=== PATIENT | male | born 1940 | race Caucasian/White ===

== ENCOUNTER 2020-03-29 11:05 | Outpatient (REF) | payer MEDICARE, SELFPAY ==
[2020-03-29 11:57] LABS: MANUAL DIFF FLAG NO
[2020-03-29 12:19] LABS: Basophils Absolute Auto 0.1 X10*3/uL (0.0-0.2); Basophils Percent Auto 0.7 % (0-2); Eosinophils Absolute Auto 0.1 X10*3/uL (0.0-0.4); Eosinophils Percent Auto 1.7 % (0-4); Hematocrit 42.5 % (42-52); Hemoglobin 13.8 g/dl (14.0-18.0); Imm Gran Abs Auto 0.03 X10*3/uL (0.00-0.03); Imm Gran Pct Auto 0.4 % (0.0-0.4); Lymphocytes Absolute Auto 2.1 X10*3/uL (1.2-4.9); Lymphocytes Percent Auto 28.4 % (20-40); Mean Corpuscular HGB Conc 32.5 g/dl (31.0-36.0); Mean Corpuscular Hemoglobin 29.6 pg (27.0-33.0); Mean Platelet Volume 10.7 fL (9.4-12.4); Monocytes Absolute Auto 0.8 X10*3/uL (0.1-1.2); Monocytes Percent Auto 10.8 % (2-11); Neutrophils Absolute Auto 4.2 X10*3/uL (2.0-8.3); Platelet Count 200 X10*3/uL (160-400); Red Blood Count 4.67 X10*6/uL (4.60-5.80); Red Cell Distribution Width 13.8 % (11.0-16.0); White Blood Count 7.3 X10*3/uL (4.8-10.8)
[2020-03-29 12:23] LABS: Glucose Urine UA NEG (NEG); Leukocyte Esterase Urine NEG (NEG); Nitrite Urine NEG (NEG); Urine Blood NEG (NEG); Urine Ketones NEG (NEG); Urine Protein NEG (NEG-TRACE)
[2020-03-29 12:27] LABS: Alanine Aminotransferase 18 U/L (0-40); Albumin Level 4.1 g/dL (3.5-5.0); Alkaline Phosphatase 43 U/L (39-117); Anion Gap 15 (12-20); Aspartate Amino Transferase 19 U/L (5-37); Bilirubin Total 0.6 mg/dL (0.0-1.0); Blood Urea Nitrogen 15 mg/dL (9-16); Calcium 9.1 mg/dL (8.4-10.2); Carbon Dioxide 25 mmol/L (22-29); Chloride 102 mmol/L (96-108); Cholesterol 130 mg/dL; Estimated Glomerular Filt Rate 57; Glucose Fasting 116 mg/dL (60-99); HDL Cholesterol 43 mg/dL; LDL Cholesterol Calculated 59 mg/dl; Sodium 137 mmol/L (135-145); Total Protein 7.1 g/dL (6.5-8.0); Triglycerides 141 mg/dL
[2020-03-29 12:34] LABS: Appearance Urine CLEAR; Color Urine YELLOW
[2020-03-29 13:01] LABS: Creatinine Urine 147.26 mg/dL; Microalbum/Creatinine Ratio Ur 21.7 ug/mg cr
[2020-03-29 13:03] LABS: Estimated Average Glucose 137 mg/dL; Hemoglobin A1c % 6.4 %
== END 2020-03-29 11:06 | disposition home or self-care (01) ==
LOC: HO.LAB 11:05
PROVIDERS: Absent Provider Internal Medicine Cardiovascular Disease; PCP Internal Medicine; Visit Provider Internal Medicine
DX: E78.00 Pure hypercholesterolemia, unspecified (principal); I25.10 Atherosclerotic heart disease of native coronary artery without angina pectoris; I10 Essential (primary) hypertension; Z12.5 Encounter for screening for malignant neoplasm of prostate
CPT/HCPCS: 36415; 80053; 80061; 81003; 82043; 83036; 84153; 85025

== ENCOUNTER 2020-07-09 14:02 | Outpatient (REF) | payer MEDICARE, SELFPAY ==
--- NOTE | ~2020-07-09 | XR_ITS ---
EXAMINATION: XR SHOULDER, RIGHT CLINICAL INFORMATION: Right shoulder pain. COMPARISON: Right shoulder radiographs dated 07/14/2017. TECHNIQUE: AP, Grashey, and scapular Y views of the right shoulder. FINDINGS: Moderate acromioclavicular osteoarthritis with a small capsular calcification, unchanged. Prominent subacromial spurring. Glenohumeral joint space narrowing with marginal osteophytes, unchanged. Mild elevation of the humeral head, likely indicating an underlying rotator cuff tear. Findings are similar when compared to the prior examination. XR/XR shoulder RT min 2V IMPRESSION: 1. Moderate acromioclavicular and [id number] glenohumeral osteoarthritis, not significantly changed. 2. Elevation of the humeral head, likely indicating an underlying rotator cuff tendon tear, similar when compared to the prior examination.
[2020-07-09 16:50] LABS: Alanine Aminotransferase 27 U/L (0-40); Albumin Level 3.9 g/dL (3.5-5.0); Alkaline Phosphatase 49 U/L (39-117); Anion Gap 15 (12-20); Aspartate Amino Transferase 30 U/L (5-37); Bilirubin Total 0.7 mg/dL (0.0-1.0); Blood Urea Nitrogen 14 mg/dL (9-16); Calcium 9.1 mg/dL (8.4-10.2); Carbon Dioxide 26 mmol/L (22-29); Chloride 103 mmol/L (96-108); Estimated Glomerular Filt Rate 53; Glucose Random 110 mg/dL (60-115); Potassium 4.5 mmol/L (3.3-5.1); Sodium 139 mmol/L (135-145); Total Protein 7.2 g/dL (6.5-8.0)
[2020-07-09 16:58] LABS: Creatinine Urine 140.47 mg/dL
[2020-07-10 03:34] LABS: Estimated Average Glucose 140 mg/dL; Hemoglobin A1c % 6.5 %
== END 2020-07-09 14:03 | disposition home or self-care (01) ==
LOC: HO.HMGCLDS 14:02
PROVIDERS: PCP Internal Medicine; Visit Provider Internal Medicine
DX: E11.22 Type 2 diabetes mellitus with diabetic chronic kidney disease (principal); N18.9 Chronic kidney disease, unspecified; I48.0 Paroxysmal atrial fibrillation; M25.511 Pain in right shoulder
CPT/HCPCS: 36415; 73030; 80053; 82043; 83036

== ENCOUNTER 2020-10-03 11:44 | Outpatient (REF) | payer MEDICARE, SELFPAY ==
[2020-10-03 13:13] LABS: MANUAL DIFF FLAG NO
[2020-10-03 13:16] LABS: Basophils Percent Auto 0.4 % (0-2); Eosinophils Percent Auto 0.4 % (0-4); Hemoglobin 12.2 g/dl (14.0-18.0); Imm Gran Abs Auto 0.05 X10*3/uL (0.00-0.03); Imm Gran Pct Auto 0.5 % (0.0-0.4); Lymphocytes Absolute Auto 1.4 X10*3/uL (1.2-4.9); Lymphocytes Percent Auto 14.5 % (20-40); Mean Corpuscular HGB Conc 32.1 g/dl (31.0-36.0); Mean Corpuscular Hemoglobin 29.3 pg (27.0-33.0); Mean Corpuscular Volume 91.1 fL (80-98); Mean Platelet Volume 10.1 fL (9.4-12.4); Monocytes Absolute Auto 0.8 X10*3/uL (0.1-1.2); Monocytes Percent Auto 7.9 % (2-11); Neutrophils Absolute Auto 7.4 X10*3/uL (2.0-8.3); Neutrophils Percent Auto 76.3 % (45-73); Platelet Count 292 X10*3/uL (160-400); Red Blood Count 4.17 X10*6/uL (4.60-5.80); Red Cell Distribution Width 14.1 % (11.0-16.0); White Blood Count 9.7 X10*3/uL (4.8-10.8)
[2020-10-03 13:16] LABS: Glucose Urine UA NEG (NEG); Leukocyte Esterase Urine NEG (NEG); Nitrite Urine NEG (NEG); PH 5.5 (5.0-8.0); Specific Gravity - Urine >= 1.030 (1.005-1.025); Urine Blood NEG (NEG); Urine Ketones NEG (NEG); Urine Protein 2+ MG/DL (NEG-TRACE)
[2020-10-03 13:20] LABS: Appearance Urine HAZY; Color Urine YELLOW
[2020-10-03 13:30] LABS: Bacteria Urine TRACE /LPF; RBC Urine 0 /HPF (0); Squamous Epithelial Cell Urine TRACE /LPF; WBC Urine 0-2 /HPF (0-4)
[2020-10-03 13:31] LABS: Amorphous Sediment Urine 3+ /LPF
[2020-10-03 13:33] LABS: Estimated Average Glucose 143 mg/dL; Hemoglobin A1c % 6.6 %
[2020-10-03 13:39] LABS: Alanine Aminotransferase 63 U/L (0-40); Albumin Level 3.8 g/dL (3.5-5.0); Alkaline Phosphatase 62 U/L (39-117); Anion Gap 17 (12-20); Aspartate Amino Transferase 50 U/L (5-37); Bilirubin Total 0.9 mg/dL (0.0-1.0); Blood Urea Nitrogen 27 mg/dL (9-16); C Reactive Protein 0.99 mg/dL (< or = 0.50); Calcium 9.6 mg/dL (8.4-10.2); Carbon Dioxide 25 mmol/L (22-29); Chloride 99 mmol/L (96-108); Estimated Glomerular Filt Rate 37; Glucose Random 124 mg/dL (60-115); Sodium 136 mmol/L (135-145); Total Protein 7.2 g/dL (6.5-8.0)
== END 2020-10-03 11:45 | disposition home or self-care (01) ==
LOC: HO.10HDL 11:44
PROVIDERS: Visit Provider Internal Medicine
DX: I48.91 Unspecified atrial fibrillation (principal); R55 Syncope and collapse; I12.9 Hypertensive chronic kidney disease with stage 1 through stage 4 chronic kidney disease, or unspecified chronic kidney disease; N18.9 Chronic kidney disease, unspecified; E11.22 Type 2 diabetes mellitus with diabetic chronic kidney disease
CPT/HCPCS: 36415; 80053; 81001; 83036; 85025; 86140; 87086

== ENCOUNTER 2020-10-10 12:22 | Outpatient (REF) | payer MEDICARE, SELFPAY ==
--- NOTE | ~2020-10-10 | CT_ITS ---
EXAMINATION: CT HEAD WITHOUT CONTRAST CLINICAL INFORMATION: Syncope. COMPARISON: None TECHNIQUE: Contiguous axial imaging was performed from the skull base to vertex without intravenous administration of contrast. This CT examination was performed using dose optimization techniques as appropriate, variously including the following: *Automated exposure control *Adjustment of mA and/or kV according to patient size (this includes techniques or standardized protocols for targeted exams where dose is matched to indication/reason for exam; i.e. extremities or head) *Use of iterative reconstruction technique DLP: 666 mGy-cm FINDINGS: There is no evidence of an extra-axial collection. There is no evidence of intra-axial or extra-axial hemorrhage. There is age-appropriate prominence of the ventricles and extra-axial CSF spaces. There is mild nonspecific periventricular white matter disease. No mass, mass effect or infarct is seen. There is evidence of atherosclerotic disease. Review of bone windows is normal. No skull fracture or bone lesion is seen. Paranasal sinuses, mastoid air cells and middle ears are clear. CT/CT head/brain wo con IMPRESSION: No acute findings. Age-appropriate prominence of the ventricles and extra-axial CSF spaces and nonspecific periventricular white matter disease.
== END 2020-10-10 12:23 | disposition home or self-care (01) ==
LOC: HO.CT 12:22
PROVIDERS: PCP Internal Medicine; Visit Provider Internal Medicine
DX: I48.91 Unspecified atrial fibrillation (principal)
CPT/HCPCS: 70450

== ENCOUNTER 2020-10-19 10:17 | Outpatient (REF) | payer MEDICARE, SELFPAY ==
[2020-10-19 12:57] LABS: MANUAL DIFF FLAG NO
[2020-10-19 13:02] LABS: Basophils Percent Auto 0.3 % (0-2); Hematocrit 35.8 % (42-52); Hemoglobin 11.6 g/dl (14.0-18.0); Imm Gran Abs Auto 0.02 X10*3/uL (0.00-0.03); Imm Gran Pct Auto 0.3 % (0.0-0.4); Lymphocytes Absolute Auto 1.1 X10*3/uL (1.2-4.9); Lymphocytes Percent Auto 14.6 % (20-40); Mean Corpuscular HGB Conc 32.4 g/dl (31.0-36.0); Mean Corpuscular Hemoglobin 28.7 pg (27.0-33.0); Mean Corpuscular Volume 88.6 fL (80-98); Mean Platelet Volume 11.5 fL (9.4-12.4); Monocytes Absolute Auto 1.2 X10*3/uL (0.1-1.2); Monocytes Percent Auto 15.1 % (2-11); Neutrophils Absolute Auto 5.4 X10*3/uL (2.0-8.3); Neutrophils Percent Auto 69.7 % (45-73); Platelet Count 112 X10*3/uL (160-400); Red Blood Count 4.04 X10*6/uL (4.60-5.80); Red Cell Distribution Width 14.9 % (11.0-16.0); White Blood Count 7.8 X10*3/uL (4.8-10.8)
[2020-10-19 13:04] LABS: Glucose Urine UA NEG (NEG); Leukocyte Esterase Urine NEG (NEG); Nitrite Urine NEG (NEG); Specific Gravity - Urine 1.025 (1.005-1.025); UACC Culture Trigger NO; Urine Blood 3+ (NEG); Urine Ketones 5 MG/DL (NEG); Urine Protein 2+ MG/DL (NEG-TRACE)
[2020-10-19 13:08] LABS: Appearance Urine HAZY; Color Urine YELLOW
[2020-10-19 13:19] LABS: RBC Urine 0 /HPF (0); Squamous Epithelial Cell Urine TRACE /LPF; WBC Urine 0 /HPF (0-4)
[2020-10-19 13:20] LABS: Amorphous Sediment Urine 1+ /LPF
[2020-10-19 13:27] LABS: Estimated Average Glucose 143 mg/dL; Hemoglobin A1c % 6.6 %
[2020-10-19 13:30] LABS: Alanine Aminotransferase 40 U/L (0-40); Albumin Level 3.3 g/dL (3.5-5.0); Alkaline Phosphatase 56 U/L (39-117); Anion Gap 16 (12-20); Aspartate Amino Transferase 46 U/L (5-37); Bilirubin Total 2.1 mg/dL (0.0-1.0); Blood Urea Nitrogen 29 mg/dL (9-16); C Reactive Protein 1.49 mg/dL (< or = 0.50); Calcium 8.8 mg/dL (8.4-10.2); Carbon Dioxide 24 mmol/L (22-29); Chloride 97 mmol/L (96-108); Estimated Glomerular Filt Rate 30; Glucose Random 153 mg/dL (60-115); Potassium 3.8 mmol/L (3.3-5.1); Sodium 133 mmol/L (135-145)
[2020-10-20 13:56] LABS: Lyme Blot 7.77 index
[2020-10-21 13:28] LABS: Lyme Abs Screen POSITIVE
[2020-10-25 09:26] LABS: 18 KD (IgG) Band REACTIVE; 23 KD (IgG) Band REACTIVE; 23 KD (IgM) Band REACTIVE; 28 KD (IgG) Band NON-REACTIVE; 30 KD (IgG) Band NON-REACTIVE; 39 KD (IgM) Band NON-REACTIVE; 41 KD (IgM) Band REACTIVE; 45 KD (IgG) Band NON-REACTIVE; 58 KD (IgG) Band REACTIVE; 66 KD (IgG) Band NON-REACTIVE; 93 KD (IgG) Band NON-REACTIVE; Lyme IgG Blot Interp NEGATIVE (NEGATIVE); Lyme IgM Blot Interp POSITIVE (NEGATIVE)
== END 2020-10-19 10:18 | disposition home or self-care (01) ==
LOC: HO.WFDLDS 10:17
PROVIDERS: Visit Provider Internal Medicine
DX: E11.9 Type 2 diabetes mellitus without complications (principal); I10 Essential (primary) hypertension; R21 Rash and other nonspecific skin eruption; R61 Generalized hyperhidrosis
CPT/HCPCS: 36415; 80053; 81001; 81003; 83036; 85025; 86140; 86617; 86618; 87086

== ENCOUNTER 2020-10-25 11:01 | Outpatient (REF) | payer MEDICARE, SELFPAY ==
--- NOTE | ~2020-10-25 | US_ITS ---
EXAMINATION: US RETROPERITONEAL LIMITED (RENAL ONLY) CLINICAL INFORMATION: Elevated creatinine. COMPARISON: Abdominal ultrasound 02/04/2011 TECHNIQUE: Real-time imaging of the kidneys. FINDINGS: RIGHT KIDNEY: 11.1 x 5.2 x 6.3 cm (SAG x AP x TRV). The kidney is normal in size and contour. No renal calculi or hydronephrosis. There is a 2.8 x 1.8 x 2.4 cm minimally complex cyst with thin septation. LEFT KIDNEY: 10.0 x 5.5 x 5.9 cm (SAG x AP x TRV). The kidney is normal in size and contour. No renal calculi or hydronephrosis. There is a 2.6 x 2.1 x 2.4 cm simple cyst in the midpole. US/US renal BI IMPRESSION: Bilateral renal cysts. The right renal cyst appears minimally complex with single thin septation.
== END 2020-10-25 11:02 | disposition home or self-care (01) ==
LOC: HO.HMGCX 11:01
PROVIDERS: PCP Internal Medicine; Visit Provider Internal Medicine
DX: R79.89 Other specified abnormal findings of blood chemistry (principal)
CPT/HCPCS: 76775

== ENCOUNTER 2020-11-07 11:31 | Observation (INO) | payer OTHER, MEDICARE, SELFPAY ==
[2020-11-07] VITALS (7 sets, daily range): BP systolic 97–140; BP diastolic 38–83; PULSE 65–79; RESP 15–21; TEMP 36.4–36.8; O2SAT 93–100; BMI 25.2; BMI 27.5
--- NOTE | 2020-11-07 | ECG_ITS ---
Test Reason : CHEST DISCMFORT Blood Pressure : / mmHG Vent. 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
--- NOTE | ~2020-11-07 | CT_ITS ---
EXAMINATION: CT ABDOMEN AND PELVIS WITHOUT CONTRAST CLINICAL INFORMATION: Obstructive acute onset renal failure. COMPARISON: Most recent renal ultrasound dated 10/25/2020 and abdominal ultrasound dated 02/04/2011 TECHNIQUE: Multidetector volumetric imaging was performed from the superior aspect of the liver through the pubic symphysis. Sagittal and coronal reformatted images were obtained on the technologist's workstation. This CT examination was performed using dose optimization techniques as appropriate, variously including the following: *Automated exposure control *Adjustment of mA and/or kV according to patient size (this includes techniques or standardized protocols for targeted exams where dose is matched to indication/reason for exam; i.e. extremities or head) *Use of iterative reconstruction technique DLP: 524 mGy-cm FINDINGS: LUNG BASES: Peripheral interstitial prominence within the lung bases, which could indicate chronic interstitial fibrosis. Partially visualized post CABG and valvuloplasty changes. LIVER, GALLBLADDER, AND BILIARY TREE: The liver is normal in size, shape, and attenuation. No focal hepatic lesion or biliary ductal dilatation is present. Status post cholecystectomy. PANCREAS: Unremarkable. SPLEEN: Unremarkable. ADRENAL GLANDS: Unremarkable. KIDNEYS AND URETERS: The kidneys are normal in size, shape, and attenuation. No hydronephrosis, hydroureter, or calculi seen. Redemonstration of a simple mid/lower pole renal cyst measuring 2.5 cm. Findings are not clinically significant, and no dedicated followup imaging is recommended. BLADDER: Nondistended with a Castillo catheter in place. GASTROINTESTINAL TRACT: Prominent sigmoid diverticulosis without evidence of acute diverticulitis. No bowel wall thickening or associated inflammatory change. No small or large bowel obstruction. Appendix not seen, however, no right lower quadrant inflammatory change to suggest acute appendicitis. PERITONEAL CAVITY: No intra-abdominal free air or free fluid. No intra-abdominal mass or organized fluid collection/abscess formation. ABDOMINAL WALL: No significant hernia is appreciated. LYMPH NODES: Normal. VASCULAR: No abdominal aortic dilatation. Prominent atherosclerotic calcifications throughout the abdominal aorta and its branch vessels. PELVIC VISCERA: Mild prostatomegaly. OSSEOUS STRUCTURES: No lytic or blastic osseous lesion. CT/CT abdomen pelvis wo con IMPRESSION: 1. Nondistended urinary bladder with a Castillo catheter in place. Mild prostatomegaly. No renal or ureteral stone. No hydronephrosis or hydroureter. 2. No intra-abdominal mass, lymphadenopathy, or ascites. 3. Sigmoid diverticulosis without evidence of acute diverticulitis. No small or large bowel obstruction. 4. Findings consistent with chronic interstitial lung disease partially visualized within the lung bases.
--- NOTE | ~2020-11-07 | XR_ITS ---
EXAMINATION: XR CHEST CLINICAL INFORMATION: Weakness. COMPARISON: Most recent rib radiographs dated 05/03/2019. TECHNIQUE: Frontal view of the chest was obtained. FINDINGS: Interstitial prominence with patchy bilateral airspace opacities, most prominent within the left lung base. Probable trace left-sided pleural effusion. No pneumothorax. Stable cardiac mediastinal silhouette with sternal wires and mediastinal surgical clips. XR/XR chest 1V IMPRESSION: Interstitial prominence with patchy bilateral airspace opacities, most prominent within the left lung base where there is a probable trace left-sided pleural effusion, new when compared to the prior examination.
--- NOTE | 2020-11-07 12:32 | ED.GENADULT ---
HPI - General Adult General Chief complaint: General Medical Stated complaint: renal failure Time Seen by Provider: 11/07/20 12:31 Source: patient and family Mode of arrival: ambulatory Limitations: other (poor historian ) History of Present Illness complaint: renal failure Cr 4.9 from labs drawn by renal on 10/31 called by PCP Onset (ago): month(s) (2 months worsening) Severity: moderate Quality: dull Pain Consistency: intermittent Relieving factors: none Exacerbating factors: none Associated symptoms: other (weakness, anorexia, nausea, myalgias, cannot eat) Treatments prior to arrival: none Related Data Home Medications Medication Instructions Recorded Confirmed amoxicillin 500 mg capsule 500 mg PO QID 11/07/20 11/07/20 aspirin 81 mg chewable tablet 81 mg PO BEDTIME 11/07/20 11/07/20 (Aspirin Childrens) ezetimibe 10 mg tablet 10 mg PO BEDTIME 11/07/20 11/07/20 metformin 500 mg tablet 500 mg PO BID 11/07/20 11/07/20 metoprolol succinate 25 mg 25 mg PO DAILY 11/07/20 11/07/20 tablet,extended release 24 hr nitroglycerin 0.4 mg sublingual 0.4 mg SUBLINGUAL Q5M PRN 11/07/20 11/07/20 tablet omeprazole 20 mg capsule,delayed 20 mg PO BID@0630,1630 11/07/20 11/07/20 release rivaroxaban 15 mg tablet (Xarelto) 15 mg PO QPM 11/07/20 11/07/20 rosuvastatin 40 mg tablet 40 mg PO BEDTIME 11/07/20 11/07/20 valsartan 40 mg tablet 40 mg PO BEDTIME 11/07/20 11/07/20 vit C 250 mg-vit E 90 mg-zinc 40 1 tab PO BID 11/07/20 11/07/20 mg-copper 1 [id number] capsule (PreserVision AREDS-2) Allergies Allergy/AdvReac Type Severity Reaction Status Date / Time adhesive tape [ADHESIVE TAPE] Allergy Intermediate BLISTERS Verified 11/07/20 11:47 doxycycline Allergy Vomiting Verified 11/07/20 11:48 some adhesives Allergy Unknown blisters Uncoded 09/09/17 00:00 Review of Systems Review of Systems: Constitutional : No Weight loss, No Fever, No Chills, pos Fatigue, pos Malaise ENT/Mouth : No sore throat, No Rhinorrhea Eyes: No Eye Pain, No Swelling, No Redness Cardiovascular : No Chest Pain, No SOB, No Dyspnea on Exertion, No Orthopnea, No Edema, No Palpitations Respiratory : No Cough, No Sputum, No Wheezing Gastrointestinal : pos Nausea, No Vomiting, No Diarrhea, No Constipation, No abdominal Pain, No Hematochezia, No Melena Genitourinary : No Dysuria, No Urinary Frequency, No Hematuria, Musculoskeletal : No joint pain, pos Myalgias, No Joint Swelling Skin : No Skin Lesions, No rash Neuro : pos Weakness, No Numbness, pos Dizziness, No Headache Psych : No Anxiety/Panic, No Depression Heme/Lymph: No Bruising, No Bleeding,No Lymphadenopathy Endocrine : No Polyuria, No Polydipsia All other systems reviewed and are negative [facility] Past Medical History Attestation statement: The following information was validated with the patient. Medical History Cataracts, both eyes Diabetes GERD (gastroesophageal reflux disease) Heart attack High cholesterol Lyme disease Stage 3 chronic kidney disease Surgical History (Updated 11/07/20 @ 11:52 by Amaris Sarmiento RN) S/P triple vessel bypass Social History Social History (Updated 11/07/20 @ 12:56 by Selma Arroyo DO) Patient Tobacco Use Status: Never used Tobacco Advance Directives: No Advance Directives Information Provided: No Physical Exam Vital Signs: Vital Signs: Last Vital Signs Temp 97.9 F 11/07/20 13:30 Pulse 70 11/07/20 15:24 Resp 19 11/07/20 15:24 BP 140/83 H 11/07/20 13:30 Pulse Ox 97 11/07/20 15:24 Body Mass Index 25.2 Appearance: Alert. Oriented X3. No acute distress. Eyes: Pupils equal, round and reactive to light. ENT: Pharynx normal. Neck: Normal inspection. Neck supple. CVS: Normal heart rate and rhythm. Pulses normal. Respiratory: No respiratory distress. Breath sounds normal. Abdomen: Soft and nontender. Skin: Skin warm and dry. pale skin color. Normal skin turgor. Extremities: No lower extremity edema. No calf ttp Neuro: Oriented X 3. No motor deficit. No sensory deficit. Course Course Course Narrative: patient is on xarelto but they cannot tell me why lactic acidosis and hypotension due to renal failure and not infection or severe sepsis patient's Cr 2.5 at this time? [place] [facility] [place] function, anemia no GIB symptoms negative guiac, cannot walk, weak and not eating, will admit for further workup given worsening of symptoms and weakness CXR ?chronic pulm fibrosis changes no cough, fever, WBC count not consistent with pneumonia Medical Decision Making MDM Narrative Medical decision making narrative: 80 yo male with convoluted history of worsening renal failure over the last two months - was referred to renal - had labs drawn on 10/31 which showed a Cr of almost 5, also had US on 10/25 renal cysts but no other sig findings - sent to ED by PCP has had poor PO intake due to combination of recent doxycycline for lyme disease dx (had erythema migrans) patient was taken off his metformin still on valsartan. Could not take doxycycline due to stomach upset. At this time labs, CT scan for mass, gaspar, 2L of IVF ordered, planned admit Lab Data Result diagrams: 11/07/20 13:04 11/07/20 13:04 Labs: Lab Results 11/07/20 11/07/20 11/07/20 Range/Units 12:56 13:04 13:04 WBC 7.4 (4.8-10.8) X10*3/uL RBC 3.17 L D (4.60-5.80) X10*6/uL Hgb 9.2 L D (14.0-18.0) g/dl Hct 28.1 L D (42-52) % MCV 88.6 (80-98) fL MCH 29.0 (27.0-33.0) pg MCHC 32.7 (31.0-36.0) g/dl RDW 14.8 (11.0-16.0) % Plt Count 153 L D (160-400) X10*3/uL MPV 10.1 (9.4-12.4) fL Immature Gran % (Auto) 0.3 (0.0-0.4) % Neut % (Auto) 65.6 (45-73) % Lymph % (Auto) 23.1 (20-40) % [place] % (Auto) 9.1 (2-11) % Eos % (Auto) 1.5 (0-4) % Baso % (Auto) 0.4 (0-2) % Lymph # (Auto) 1.7 (1.2-4.9) X10*3/uL [place] # (Auto) 0.7 (0.1-1.2) X10*3/uL Eos # (Auto) 0.1 (0.0-0.4) X10*3/uL Baso # (Auto) 0.0 (0.0-0.2) X10*3/uL Abs Immat Gran (auto) 0.02 (0.00-0.03) X10*3/uL Absolute Neuts (auto) 4.9 (2.0-8.3) X10*3/uL Absolute Nucleated RBC 0.000 (0.0-0.012) X10*3/uL Nucleated RBC % (auto) 0.0 (0.0-0.2) /100WBC PT (9.9-13.0) SEC INR (0.9-1.1) Sodium 139 (135-145) mmol/L Potassium 4.4 (3.3-5.1) mmol/L Chloride 108 (96-108) mmol/L Carbon Dioxide 22 (22-29) mmol/L Anion Gap 13 (12-20) BUN 32 H (9-16) mg/dL Creatinine 2.59 H (0.5-1.4) mg/dL Estim Creat Clear Calc 19.4 Estimated GFR 24 Random Glucose 104 (60-115) mg/dL Lactic Acid (0.5-2.0) mmol/L Calcium 8.8 (8.4-10.2) mg/dL Magnesium (1.6-2.6) mg/dL Total Bilirubin 0.7 (0.0-1.0) mg/dL Direct Bilirubin 0.3 (0.0-0.5) mg/dL AST 30 (5-37) U/L ALT 41 H (0-40) U/L Alkaline Phosphatase 57 (39-117) U/L Total Creatine Kinase 112 (38-174) U/L Troponin I High Sens (<3.5-35.0) ng/L Total Protein 6.5 (6.5-8.0) g/dL Albumin 3.3 L (3.5-5.0) g/dL Lipase 55 (8-78) U/L TSH (0.32-4.0) uIU/mL Urine Color Urine Appearance Urine pH (5.0-8.0) Ur Specific [place] (1.005-1.025) Urine Protein (NEG-TRACE) MG/DL Urine Glucose (UA) (NEG) MG/DL Urine Ketones (NEG) MG/DL Urine Blood (NEG) Urine Nitrite (NEG) Ur Leukocyte Esterase (NEG) Urine RBC (0) /HPF Urine WBC (0-4) /HPF Ur Squamous Epith Cells /LPF Amorphous Sediment /LPF Urine Bacteria /LPF Granular Casts /LPF Urine Mucus /LPF Stool Occult Blood (NEGATIVE) COVID-19 (SRI) Negative (Negative) COVID-19 Clin Com See Note 11/07/20 11/07/20 11/07/20 Range/Units 13:04 13:04 13:04 WBC (4.8-10.8) X10*3/uL RBC (4.60-5.80) X10*6/uL Hgb (14.0-18.0) g/dl Hct (42-52) % MCV (80-98) fL MCH (27.0-33.0) pg MCHC (31.0-36.0) g/dl RDW (11.0-16.0) % Plt Count (160-400) X10*3/uL MPV (9.4-12.4) fL Immature Gran % (Auto) (0.0-0.4) % Neut % (Auto) (45-73) % Lymph % (Auto) (20-40) % [place] % (Auto) (2-11) % Eos % (Auto) (0-4) % Baso % (Auto) (0-2) % Lymph # (Auto) (1.2-4.9) X10*3/uL [place] # (Auto) (0.1-1.2) X10*3/uL Eos # (Auto) (0.0-0.4) X10*3/uL Baso # (Auto) (0.0-0.2) X10*3/uL Abs Immat Gran (auto) (0.00-0.03) X10*3/uL Absolute Neuts (auto) (2.0-8.3) X10*3/uL Absolute Nucleated RBC (0.0-0.012) X10*3/uL Nucleated RBC % (auto) (0.0-0.2) /100WBC PT 16.7 H (9.9-13.0) SEC INR 1.5 H (0.9-1.1) Sodium (135-145) mmol/L Potassium (3.3-5.1) mmol/L Chloride (96-108) mmol/L Carbon Dioxide (22-29) mmol/L Anion Gap (12-20) BUN (9-16) mg/dL Creatinine (0.5-1.4) mg/dL Estim Creat Clear Calc Estimated GFR Random Glucose (60-115) mg/dL Lactic Acid 2.2 H* (0.5-2.0) mmol/L Calcium (8.4-10.2) mg/dL Magnesium 1.6 (1.6-2.6) mg/dL Total Bilirubin (0.0-1.0) mg/dL Direct Bilirubin (0.0-0.5) mg/dL AST (5-37) U/L ALT (0-40) U/L Alkaline Phosphatase (39-117) U/L Total Creatine Kinase (38-174) U/L Troponin I High Sens (<3.5-35.0) ng/L Total Protein (6.5-8.0) g/dL Albumin (3.5-5.0) g/dL Lipase (8-78) U/L TSH 2.54 (0.32-4.0) uIU/mL Urine Color Urine Appearance Urine pH (5.0-8.0) Ur Specific [place] (1.005-1.025) Urine Protein (NEG-TRACE) MG/DL Urine Glucose (UA) (NEG) MG/DL Urine Ketones (NEG) MG/DL Urine Blood (NEG) Urine Nitrite (NEG) Ur Leukocyte Esterase (NEG) Urine RBC (0) /HPF Urine WBC (0-4) /HPF Ur Squamous Epith Cells /LPF Amorphous Sediment /LPF Urine Bacteria /LPF Granular Casts /LPF Urine Mucus /LPF Stool Occult Blood (NEGATIVE) COVID-19 (SRI) (Negative) COVID-19 Clin Com 11/07/20 11/07/20 11/07/20 Range/Units 13:04 13:21 14:46 WBC (4.8-10.8) X10*3/uL RBC (4.60-5.80) X10*6/uL Hgb (14.0-18.0) g/dl Hct (42-52) % MCV (80-98) fL MCH (27.0-33.0) pg MCHC (31.0-36.0) g/dl RDW (11.0-16.0) % Plt Count (160-400) X10*3/uL MPV (9.4-12.4) fL Immature Gran % (Auto) (0.0-0.4) % Neut % (Auto) (45-73) % Lymph % (Auto) (20-40) % [place] % (Auto) (2-11) % Eos % (Auto) (0-4) % Baso % (Auto) (0-2) % Lymph # (Auto) (1.2-4.9) X10*3/uL [place] # (Auto) (0.1-1.2) X10*3/uL Eos # (Auto) (0.0-0.4) X10*3/uL Baso # (Auto) (0.0-0.2) X10*3/uL Abs Immat Gran (auto) (0.00-0.03) X10*3/uL Absolute Neuts (auto) (2.0-8.3) X10*3/uL Absolute Nucleated RBC (0.0-0.012) X10*3/uL Nucleated RBC % (auto) (0.0-0.2) /100WBC PT (9.9-13.0) SEC INR (0.9-1.1) Sodium (135-145) mmol/L Potassium (3.3-5.1) mmol/L Chloride (96-108) mmol/L Carbon Dioxide (22-29) mmol/L Anion Gap (12-20) BUN (9-16) mg/dL Creatinine (0.5-1.4) mg/dL Estim Creat Clear Calc Estimated GFR Random Glucose (60-115) mg/dL Lactic Acid (0.5-2.0) mmol/L Calcium (8.4-10.2) mg/dL Magnesium (1.6-2.6) mg/dL Total Bilirubin (0.0-1.0) mg/dL Direct Bilirubin (0.0-0.5) mg/dL AST (5-37) U/L ALT (0-40) U/L Alkaline Phosphatase (39-117) U/L Total Creatine Kinase (38-174) U/L Troponin I High Sens 8.8 (<3.5-35.0) ng/L Total Protein (6.5-8.0) g/dL Albumin (3.5-5.0) g/dL Lipase (8-78) U/L TSH (0.32-4.0) uIU/mL Urine Color YELLOW Urine Appearance CLEAR Urine pH 6.0 (5.0-8.0) Ur Specific [place] 1.025 (1.005-1.025) Urine Protein 1+ H (NEG-TRACE) MG/DL Urine Glucose (UA) NEG (NEG) MG/DL Urine Ketones NEG (NEG) MG/DL Urine Blood NEG (NEG) Urine Nitrite NEG (NEG) Ur Leukocyte Esterase NEG (NEG) Urine RBC 1-4 (0) /HPF Urine WBC 1-4 (0-4) /HPF Ur Squamous Epith Cells TRACE /LPF Amorphous Sediment 1+ /LPF Urine Bacteria NONE /LPF Granular Casts 5-9 /LPF Urine Mucus 2+ /LPF Stool Occult Blood NEGATIVE (NEGATIVE) COVID-19 (SRI) (Negative) COVID-19 Clin Com ECG Data Attestation: I personally reviewed and interpreted this ECG as follows: Interpretation: Rate: 78 Rhythm: NSR [place]: left Normal P waves. Normal MELECIO. Normal QRS complex. ST T wave : no ABY, inverted t waves in inf leads qTC: normal prior studies: changed rom 2007 The study has been interpreted contemporaneously by me. . Discharge Plan Discharge Clinical Impression: Weakness, Acidosis, lactic Anemia Qualifiers: Anemia type: other cause Other causes of anemia: other cause, not classified Qualified Code(s): D64.89 - Other specified anemias Acute renal failure Qualifiers: Acute renal failure type: unspecified Qualified Code(s): N17.9 - Acute kidney failure, unspecified Patient Disposition: Admitted As Inpatient
[2020-11-07] MEDS: 0.9 % Sodium Chloride 1,000 ML 999 ML IVCONT ×2 (12:53→13:29)
--- NOTE | 2020-11-07 13:04 | PHA.MEDREC ---
MED REC COMPLETE. Patient has not been taking the amoxicillin as prescribed, he states it makes him sick. The metformin was previously held, restarted since patient has been eating. Pharmacy Consult ? Medication Reconciliation Pharmacy has completed the medication reconciliation.
[2020-11-07 13:11] LABS: MANUAL DIFF FLAG NO
[2020-11-07 13:16] LABS: Basophils Percent Auto 0.4 % (0-2); Eosinophils Absolute Auto 0.1 X10*3/uL (0.0-0.4); Eosinophils Percent Auto 1.5 % (0-4); Hematocrit 28.1 % (42-52); Hemoglobin 9.2 g/dl (14.0-18.0); Imm Gran Abs Auto 0.02 X10*3/uL (0.00-0.03); Imm Gran Pct Auto 0.3 % (0.0-0.4); Lymphocytes Absolute Auto 1.7 X10*3/uL (1.2-4.9); Lymphocytes Percent Auto 23.1 % (20-40); Mean Corpuscular HGB Conc 32.7 g/dl (31.0-36.0); Mean Corpuscular Volume 88.6 fL (80-98); Mean Platelet Volume 10.1 fL (9.4-12.4); Monocytes Absolute Auto 0.7 X10*3/uL (0.1-1.2); Monocytes Percent Auto 9.1 % (2-11); Neutrophils Absolute Auto 4.9 X10*3/uL (2.0-8.3); Neutrophils Percent Auto 65.6 % (45-73); Platelet Count 153 X10*3/uL (160-400); Red Blood Count 3.17 X10*6/uL (4.60-5.80); Red Cell Distribution Width 14.8 % (11.0-16.0); White Blood Count 7.4 X10*3/uL (4.8-10.8)
[2020-11-07 13:19] LABS: INTERNATIONAL NORM RATIO 1.5 (0.9-1.1); Prothrombin Time 16.7 SEC (9.9-13.0)
[2020-11-07] MEDS: LORazepam 2 MG/ML VIAL 0.5 MG IVPUSH (13:27)
[2020-11-07 13:28] LABS: COVID-19 Test Negative (Negative); IDNOW Serial# 08D9AD1C
[2020-11-07 13:36] LABS: Glucose Urine UA NEG (NEG); Leukocyte Esterase Urine NEG (NEG); Nitrite Urine NEG (NEG); Specific Gravity - Urine 1.025 (1.005-1.025); UACC Culture Trigger NO; Urine Blood NEG (NEG); Urine Ketones NEG (NEG); Urine Protein 1+ MG/DL (NEG-TRACE)
[2020-11-07 13:40] LABS: Lactic Acid 2.2 mmol/L (0.5-2.0)
[2020-11-07 13:40] LABS: Appearance Urine CLEAR; Color Urine YELLOW
[2020-11-07 13:44] LABS: Amorphous Sediment Urine 1+ /LPF; Mucus Urine 2+ /LPF; Squamous Epithelial Cell Urine TRACE /LPF
[2020-11-07 13:45] LABS: Troponin-I High Sensitivity 8.8 ng/L (<3.5-35.0)
[2020-11-07 13:58] LABS: Magnesium 1.6 mg/dL (1.6-2.6)
[2020-11-07 14:02] LABS: Alanine Aminotransferase 41 U/L (0-40); Albumin Level 3.3 g/dL (3.5-5.0); Alkaline Phosphatase 57 U/L (39-117); Anion Gap 13 (12-20); Aspartate Amino Transferase 30 U/L (5-37); Bilirubin Direct 0.3 mg/dL (0.0-0.5); Bilirubin Total 0.7 mg/dL (0.0-1.0); Blood Urea Nitrogen 32 mg/dL (9-16); Calcium 8.8 mg/dL (8.4-10.2); Carbon Dioxide 22 mmol/L (22-29); Chloride 108 mmol/L (96-108); Creatinine Clr Calc Pharmacy 19.4; Estimated Glomerular Filt Rate 24; Glucose Random 104 mg/dL (60-115); Lipase 55 U/L (8-78); Potassium 4.4 mmol/L (3.3-5.1); Sodium 139 mmol/L (135-145); Total Protein 6.5 g/dL (6.5-8.0)
[2020-11-07 14:21] LABS: TSH reflex Free T4 2.54 uIU/mL (0.32-4.0)
[2020-11-07 14:54] LABS: OBS Int Ctl Valid YES; OBS1 NEGATIVE (NEGATIVE)
[2020-11-07 15:10] LABS: Reflex Lactate? Lactic Acid Added
[2020-11-07 16:22] LABS: ~Lactic Acid-LAB USE ONLY 1.6 mmol/L (0.5-2.0)
--- NOTE | 2020-11-07 16:44 | P.HPHOSP_ITS ---
History of Present Illness Date of Service: 11/07/20 Chief Complaint: Elevated creatinine 80-year-old male presented with elevated creatinine. Patient has been feeling unwell for about 6 weeks, has had symptoms of fatigue, decreased appetite, nausea, reports occasional fever. At baseline patient was fairly active able to go up and down ladders, work outdoors. About 6 weeks prior to presentation started to feel ill. at one point noted rash, and tested positive for Lyme. He was treated with p.o. doxycycline, but patient did not tolerate treatment and was even more nauseous and vomiting, at that point he had labs drawn at [facility] on 10/31/2020. He was then switched to amoxicillin. He still feeling ill but not as bad as 1 week prior to presentation. Patient got the results of his labs from 10/31 on day of presentation and creatinine was 4.9 which was elevated from previous (1.31 in june 2020 and 2.12 october 19, 2020). In ED, creatinine is now back down to 2.59. Review of Systems Review of Systems: Constitutional: fevers Eyes: denies blurry vision ENT: denies sore throat CVS: denies chest pain Respiratory: Denies dyspnea GI: no abdominal pain : denies dysuria MSK: denies neck pain Skin: rash Neuro: denies specific motor weakness Psych: denies suicidal ideation Endocrine: denies heat/cold intolerance Hematologic: denies easy bleeding Allergy: denies hives [facility] Medical History CAD (coronary artery disease) Cataracts, both eyes Diabetes GERD (gastroesophageal reflux disease) High cholesterol Lyme disease Paroxysmal A-fib Stage 3 chronic kidney disease Family history: reviewed and not pertinent Surgical History Hx of cholecystectomy S/P triple vessel bypass Social History (Updated 11/07/20 @ 16:54 by Ezekiel Hartman MD) Alcohol intake: never Patient Tobacco Use Status: Never used Tobacco Use of substances other than those prescribed or required for medical reasons: No Advance Directives: No Advance Directives Information Provided: No Meds Allergies Allergy/AdvReac Type Severity Reaction Status Date / Time adhesive tape [ADHESIVE TAPE] Allergy Intermediate BLISTERS Verified 11/07/20 11:47 doxycycline Allergy Vomiting Verified 11/07/20 11:48 some adhesives Allergy Unknown blisters Uncoded 09/09/17 00:00 Active Medications: Current Medications Generic Name Dose Route Start Last Admin Trade Name Belia PRN Reason Stop Dose Admin Aspirin 81 mg 11/07/20 21:00 Aspirin 81 Mg Tab.Chew PO BEDTIME [facility] Atorvastatin Calcium 80 mg 11/07/20 21:00 Atorvastatin Calcium 80 Mg Tablet PO BEDTIME [facility] Ezetimibe 10 mg 11/07/20 21:00 Ezetimibe 10 Mg Tablet PO BEDTIME [facility] Ceftriaxone Sodium 1 gm/ 50 mls @ 100 mls/hr 11/07/20 17:00 Sodium Chloride IV Q24H [facility] Lactated Ringer's 1,000 mls @ 80 mls/hr 11/07/20 16:45 Lr IVCONT .[id number] [facility] Metoprolol Succinate 25 mg 11/08/20 09:00 Metoprolol Succinate Er 25 Mg Tab.Er.24h PO DAILY [facility] Protocol Omeprazole 20 mg 11/08/20 06:30 Omeprazole 20 Mg Capsule. PO BID@0630,1630 [facility] Pharmacy Consult 1 each 11/07/20 12:33 Consult Rx Perform Med Rec MISCELLANE ONCE PRN Consult order Rivaroxaban 15 mg 11/07/20 18:00 Rivaroxaban 15 Mg Tablet PO DAILY@1800 [facility] Sodium Chloride 3 ml 11/08/20 00:00 0.9 % Sodium Chloride Flush 3 Ml Syringe IVFLUSH QSHIFT [facility] Valsartan 40 mg 11/07/20 21:00 Valsartan 40 Mg Tablet PO BEDTIME [facility] Protocol Home Medications Medication Instructions Recorded Confirmed Last Taken Type amoxicillin 500 mg capsule 500 mg PO QID 11/07/20 11/07/20 Unknown History aspirin 81 mg chewable tablet 81 mg PO BEDTIME 11/07/20 11/07/20 Unknown History (Aspirin Childrens) ezetimibe 10 mg tablet 10 mg PO BEDTIME 11/07/20 11/07/20 Unknown History metformin 500 mg tablet 500 mg PO BID 11/07/20 11/07/20 Unknown History metoprolol succinate 25 mg 25 mg PO DAILY 11/07/20 11/07/20 Unknown History tablet,extended release 24 hr nitroglycerin 0.4 mg sublingual 0.4 mg SUBLINGUAL Q5M PRN 11/07/20 11/07/20 Unknown History tablet omeprazole 20 mg capsule,delayed 20 mg PO BID@0630,1630 11/07/20 11/07/20 Unknown History release rivaroxaban 15 mg tablet (Xarelto) 15 mg PO QPM 11/07/20 11/07/20 Unknown History rosuvastatin 40 mg tablet 40 mg PO BEDTIME 11/07/20 11/07/20 Unknown History valsartan 40 mg tablet 40 mg PO BEDTIME 11/07/20 11/07/20 Unknown History vit C 250 mg-vit E 90 mg-zinc 40 1 tab PO BID 11/07/20 11/07/20 Unknown History mg-copper 1 [id number] capsule (PreserVision AREDS-2) Physical Exam 2 Vital Signs and Narrative: Vital Signs: Last Vital Signs Temp 97.9 F 11/07/20 13:30 Pulse 66 11/07/20 16:06 Resp 16 11/07/20 16:06 BP 116/59 L 11/07/20 16:06 Pulse Ox 93 11/07/20 16:06 Body Mass Index 25.2 General: no acute distress HEENT: atraumatic Neck: normal to visual inspection CVS: S1, S2, RRR Resp: CTA bilateral Chest: non tender GI: soft, non tender, non distended : no CVA tenderness Skin: no rashes Extremities: no edema Neuro: Oriented X3, grossly intact Psych: cooperative Results Labs CBC and Chem 7: 11/07/20 13:04 11/07/20 13:04 Labs: Laboratory Results - last 24 hr 11/07/20 11/07/20 11/07/20 12:56 13:04 13:04 MCV 88.6 MCH 29.0 MCHC 32.7 RDW 14.8 Plt Count 153 L D MPV 10.1 Immature Gran % (Auto) 0.3 Neut % (Auto) 65.6 Lymph % (Auto) 23.1 [place] % (Auto) 9.1 Eos % (Auto) 1.5 Baso % (Auto) 0.4 Lymph # (Auto) 1.7 [place] # (Auto) 0.7 Eos # (Auto) 0.1 Baso # (Auto) 0.0 Abs Immat Gran (auto) 0.02 Absolute Neuts (auto) 4.9 Absolute Nucleated RBC 0.000 Nucleated RBC % (auto) 0.0 PT INR Anion Gap 13 Estim Creat Clear Calc 19.4 Estimated GFR 24 Random Glucose 104 Lactic Acid Lactic Acid Fup @ 2Hr Calcium 8.8 Magnesium Total Bilirubin 0.7 Direct Bilirubin 0.3 AST 30 ALT 41 H Alkaline Phosphatase 57 Total Creatine Kinase 112 Troponin I High Sens Total Protein 6.5 Albumin 3.3 L Lipase 55 TSH Urine Color Urine Appearance Urine pH Ur Specific [place] Urine Protein Urine Glucose (UA) Urine Ketones Urine Blood Urine Nitrite Ur Leukocyte Esterase Urine RBC Urine WBC Ur Squamous Epith Cells Amorphous Sediment Urine Bacteria Granular Casts Urine Mucus Stool Occult Blood COVID-19 (SRI) Negative COVID-19 Clin Com See Note 11/07/20 11/07/20 11/07/20 13:04 13:04 13:04 MCV MCH MCHC RDW Plt Count MPV Immature Gran % (Auto) Neut % (Auto) Lymph % (Auto) [place] % (Auto) Eos % (Auto) Baso % (Auto) Lymph # (Auto) [place] # (Auto) Eos # (Auto) Baso # (Auto) Abs Immat Gran (auto) Absolute Neuts (auto) Absolute Nucleated RBC Nucleated RBC % (auto) PT 16.7 H INR 1.5 H Anion Gap Estim Creat Clear Calc Estimated GFR Random Glucose Lactic Acid 2.2 H* Lactic Acid Fup @ 2Hr Calcium Magnesium 1.6 Total Bilirubin Direct Bilirubin AST ALT Alkaline Phosphatase Total Creatine Kinase Troponin I High Sens Total Protein Albumin Lipase TSH 2.54 Urine Color Urine Appearance Urine pH Ur Specific [place] Urine Protein Urine Glucose (UA) Urine Ketones Urine Blood Urine Nitrite Ur Leukocyte Esterase Urine RBC Urine WBC Ur Squamous Epith Cells Amorphous Sediment Urine Bacteria Granular Casts Urine Mucus Stool Occult Blood COVID-19 (SRI) COVID-19 Clin Com 11/07/20 11/07/20 11/07/20 13:04 13:21 14:46 MCV MCH MCHC RDW Plt Count MPV Immature Gran % (Auto) Neut % (Auto) Lymph % (Auto) [place] % (Auto) Eos % (Auto) Baso % (Auto) Lymph # (Auto) [place] # (Auto) Eos # (Auto) Baso # (Auto) Abs Immat Gran (auto) Absolute Neuts (auto) Absolute Nucleated RBC Nucleated RBC % (auto) PT INR Anion Gap Estim Creat Clear Calc Estimated GFR Random Glucose Lactic Acid Lactic Acid Fup @ 2Hr Calcium Magnesium Total Bilirubin Direct Bilirubin AST ALT Alkaline Phosphatase Total Creatine Kinase Troponin I High Sens 8.8 Total Protein Albumin Lipase TSH Urine Color YELLOW Urine Appearance CLEAR Urine pH 6.0 Ur Specific [place] 1.025 Urine Protein 1+ H Urine Glucose (UA) NEG Urine Ketones NEG Urine Blood NEG Urine Nitrite NEG Ur Leukocyte Esterase NEG Urine RBC 1-4 Urine WBC 1-4 Ur Squamous Epith Cells TRACE Amorphous Sediment 1+ Urine Bacteria NONE Granular Casts 5-9 Urine Mucus 2+ Stool Occult Blood NEGATIVE COVID-19 (SRI) COVID-19 Clin Com 11/07/20 15:53 MCV MCH MCHC RDW Plt Count MPV Immature Gran % (Auto) Neut % (Auto) Lymph % (Auto) [place] % (Auto) Eos % (Auto) Baso % (Auto) Lymph # (Auto) [place] # (Auto) Eos # (Auto) Baso # (Auto) Abs Immat Gran (auto) Absolute Neuts (auto) Absolute Nucleated RBC Nucleated RBC % (auto) PT INR Anion Gap Estim Creat Clear Calc Estimated GFR Random Glucose Lactic Acid Lactic Acid Fup @ 2Hr 1.6 Calcium Magnesium Total Bilirubin Direct Bilirubin AST ALT Alkaline Phosphatase Total Creatine Kinase Troponin I High Sens Total Protein Albumin Lipase TSH Urine Color Urine Appearance Urine pH Ur Specific [place] Urine Protein Urine Glucose (UA) Urine Ketones Urine Blood Urine Nitrite Ur Leukocyte Esterase Urine RBC Urine WBC Ur Squamous Epith Cells Amorphous Sediment Urine Bacteria Granular Casts Urine Mucus Stool Occult Blood COVID-19 (SRI) COVID-19 Clin Com Imaging Radiologist's Impressions: Impressions Abdomen/Pelvis CT 11/07/20 12:33 IMPRESSION: 1. Nondistended urinary bladder with a Castillo catheter in place. Mild prostatomegaly. No renal or ureteral stone. No hydronephrosis or hydroureter. 2. No intra-abdominal mass, lymphadenopathy, or ascites. 3. Sigmoid diverticulosis without evidence of acute diverticulitis. No small or large bowel obstruction. 4. Findings consistent with chronic interstitial lung disease partially visualized within the lung bases. Chest X-Ray 11/07/20 12:34 IMPRESSION: Interstitial prominence with patchy bilateral airspace opacities, most prominent within the left lung base where there is a probable trace left-sided pleural effusion, new when compared to the prior examination. Assessment and Plan (1) Acute renal failure: Qualifiers: Acute renal failure type: unspecified Qualified Code(s): N17.9 - Acute kidney failure, unspecified Status: Acute 80M presented with elevated creatinine GABRIELA on CKD II-III likely worsening intake over last few weeks due to lyme disease GABRIELA from last week related to intolerance to doxycyline, now improving IVF, monitor Lyme rocephin, ID eval CAD asa, statin paroxysmal afib xarelto, toprol DM insulin Quality Stroke Does the patient have a stroke diagnosis?: No VTE Prior VTE?: No VTE Risk Level:: Medical - moderate - high VTE Device Contraindication: Treatment Not Indicated VTE Drug Contraindication: N/A - Med Ordered
[2020-11-07] MEDS: cefTRIAXone sodium 1 GM in 0.9 % Sodium Chloride 50 ML IV (17:03)
[2020-11-07] MEDS: Lactated Ringers 1,000 ML 80 ML IVCONT (17:05)
[2020-11-07] MEDS: Rivaroxaban 15 MG TABLET PO (18:39)
[2020-11-07 21:15] LABS: Glucose, Whole Blood 133 mg/dL (60-115)
[2020-11-07] MEDS: Aspirin 81 MG TAB.CHEW PO (21:23)
[2020-11-07] MEDS: Ezetimibe 10 MG TABLET PO (21:23)
[2020-11-07] MEDS: Valsartan 40 MG TABLET PO (21:23)
[2020-11-07] MEDS: Atorvastatin Calcium 80 MG TABLET PO (21:24)
[2020-11-07] MEDS: 0.9 % Sodium Chloride Flush 3 ML SYRINGE IVFLUSH (21:24)
[2020-11-08] VITALS: BP 121/60; PULSE 63; RESP 14; TEMP 36.1; O2SAT 98
[2020-11-08 03:56] VITALS: BP 116/63; PULSE 79; RESP 16; TEMP 36.3; O2SAT 99
[2020-11-08] MEDS: Lactated Ringers 1,000 ML 80 ML IVCONT (05:48)
[2020-11-08] MEDS: Omeprazole 20 MG CAPSULE.DR PO ×2 (05:49→17:06)
[2020-11-08 06:35] LABS: Hematocrit 25.8 % (42-52); Hemoglobin 8.5 g/dl (14.0-18.0); Mean Corpuscular HGB Conc 32.9 g/dl (31.0-36.0); Mean Corpuscular Hemoglobin 29.1 pg (27.0-33.0); Mean Corpuscular Volume 88.4 fL (80-98); Mean Platelet Volume 10.6 fL (9.4-12.4); Platelet Count 135 X10*3/uL (160-400); Red Blood Count 2.92 X10*6/uL (4.60-5.80); Red Cell Distribution Width 14.7 % (11.0-16.0); White Blood Count 8.9 X10*3/uL (4.8-10.8)
[2020-11-08 07:51] LABS: Anion Gap 10 (12-20); Blood Urea Nitrogen 25 mg/dL (9-16); Calcium 8.2 mg/dL (8.4-10.2); Carbon Dioxide 23 mmol/L (22-29); Chloride 107 mmol/L (96-108); Creatinine Clr Calc Pharmacy 27.5; Estimated Glomerular Filt Rate 32; Glucose Fasting 99 mg/dL (60-99); Potassium 4.2 mmol/L (3.3-5.1); Sodium 136 mmol/L (135-145)
[2020-11-08 07:54] LABS: Glucose, Whole Blood 101 mg/dL (60-115)
[2020-11-08 07:59] VITALS: BP 155/72; PULSE 63; RESP 17; TEMP 36.2; O2SAT 97
[2020-11-08 08:10] VITALS: BP 155/72; PULSE 63
[2020-11-08] MEDS: Metoprolol Succinate ER 25 MG TAB.ER.24H PO (08:10)
--- NOTE | 2020-11-08 11:41 | PC.NURSE ---
Pt gaspar removed at 1140. Pt due to void at 1740
[2020-11-08 11:47] LABS: Glucose, Whole Blood 124 mg/dL (60-115)
--- NOTE | 2020-11-08 11:48 | HO.PM.IMPN ---
Subjective Subjective Date of Service: 11/08/20 Interval History: weak Constitutional Constitutional: Reports no additional constitutional complaints Eyes Eyes: Reports no additional eye complaints Physical Exam Vital Signs: Vital Signs: Last Vital Signs Temp 97.2 F 11/08/20 07:59 Pulse 63 11/08/20 08:10 Resp 17 11/08/20 07:59 BP 155/72 H 11/08/20 08:10 Pulse Ox 97 11/08/20 07:59 Body Mass Index 27.5 General: AO X 3, no acute distress Resp: CTA bilateral CVS: S1,S2,RRR GI: soft, non tender, non distended Neuro: motor grossly intact Psych: appropriate affect Objective Data Current Medications Generic Name Dose Route Start Last Admin Trade Name Freq PRN Reason Stop Dose Admin Aspirin 81 mg 11/07/20 21:00 11/07/20 21:23 Aspirin 81 Mg Tab.Chew PO 81 mg BEDTIME [facility] Administration Atorvastatin Calcium 80 mg 11/07/20 21:00 11/07/20 21:24 Atorvastatin Calcium 80 Mg Tablet PO 80 mg BEDTIME [facility] Administration Dextrose 25 gm 11/07/20 16:57 Dextrose 50 % 25 Gm/50 Ml Vial IVPUSH Q15M PRN per Hypoglycemia Standing Ord. Protocol Ezetimibe 10 mg 11/07/20 21:00 11/07/20 21:23 Ezetimibe 10 Mg Tablet PO 10 mg BEDTIME [facility] Administration Glucose 15 gm 11/07/20 16:57 Glucose Gel 15 Gm Gel..Gram. PO Q15M PRN per Hypoglycemia Standing Ord. Protocol Ceftriaxone Sodium 1 gm/ 50 mls @ 100 mls/hr 11/07/20 17:00 11/07/20 18:12 Sodium Chloride IV Infused Q24H [facility] Infusion Lactated Ringer's 1,000 mls @ 80 mls/hr 11/07/20 16:45 11/08/20 05:48 Lr IVCONT 80 mls/hr .[id number] [facility] Administration Insulin Human Lispro 0 unit 11/07/20 21:00 11/08/20 11:42 Insulin Lispro 100 Unit/Ml 3 Ml Vial SUBCUT Not Given QIDACHS [facility] Protocol Metoprolol Succinate 25 mg 11/08/20 09:00 11/08/20 08:10 Metoprolol Succinate Er 25 Mg Tab.Er.24h PO 25 mg DAILY [facility] Administration Protocol Omeprazole 20 mg 11/08/20 06:30 11/08/20 05:49 Omeprazole 20 Mg Capsule. PO 20 mg BID@0630,0530 [facility] Administration Pharmacy Consult 1 each 11/07/20 12:33 Consult Rx Perform Med Rec MISCELLANE ONCE PRN Consult order Rivaroxaban 15 mg 11/07/20 18:00 11/07/20 18:39 Rivaroxaban 15 Mg Tablet PO 15 mg DAILY@1800 [facility] Administration Sodium Chloride 3 ml 11/08/20 00:00 11/08/20 08:10 0.9 % Sodium Chloride Flush 3 Ml Syringe IVFLUSH Not Given QSHIFT [facility] Valsartan 40 mg 11/07/20 21:00 11/07/20 21:23 Valsartan 40 Mg Tablet PO 40 mg BEDTIME [facility] Administration Protocol Labs CBC & Chem 7: 11/08/20 06:01 11/08/20 06:01 Labs: Laboratory Results - last 24 hr 11/07/20 11/07/20 11/07/20 12:56 13:04 13:04 MCV 88.6 MCH 29.0 MCHC 32.7 RDW 14.8 Plt Count 153 L D MPV 10.1 Immature Gran % (Auto) 0.3 Neut % (Auto) 65.6 Lymph % (Auto) 23.1 [place] % (Auto) 9.1 Eos % (Auto) 1.5 Baso % (Auto) 0.4 Lymph # (Auto) 1.7 [place] # (Auto) 0.7 Eos # (Auto) 0.1 Baso # (Auto) 0.0 Abs Immat Gran (auto) 0.02 Absolute Neuts (auto) 4.9 Absolute Nucleated RBC 0.000 Nucleated RBC % (auto) 0.0 PT INR Anion Gap 13 Estim Creat Clear Calc 19.4 Estimated GFR 24 POC Glucose Random Glucose 104 Fasting Glucose Lactic Acid Lactic Acid Fup @ 2Hr Calcium 8.8 Magnesium Total Bilirubin 0.7 Direct Bilirubin 0.3 AST 30 ALT 41 H Alkaline Phosphatase 57 Total Creatine Kinase 112 Troponin I High Sens Total Protein 6.5 Albumin 3.3 L Lipase 55 TSH Urine Color Urine Appearance Urine pH Ur Specific [place] Urine Protein Urine Glucose (UA) Urine Ketones Urine Blood Urine Nitrite Ur Leukocyte Esterase Urine RBC Urine WBC Ur Squamous Epith Cells Amorphous Sediment Urine Bacteria Granular Casts Urine Mucus Stool Occult Blood COVID-19 (SRI) Negative [facility] [employer]-19 Big Screen Tools See Note 11/07/20 11/07/20 11/07/20 13:04 13:04 13:04 MCV MCH MCHC RDW Plt Count MPV Immature Gran % (Auto) Neut % (Auto) Lymph % (Auto) [place] % (Auto) Eos % (Auto) Baso % (Auto) Lymph # (Auto) [place] # (Auto) Eos # (Auto) Baso # (Auto) Abs Immat Gran (auto) Absolute Neuts (auto) Absolute Nucleated RBC Nucleated RBC % (auto) PT 16.7 H INR 1.5 H Anion Gap Estim Creat Clear Calc Estimated GFR POC Glucose Random Glucose Fasting Glucose Lactic Acid 2.2 H* Lactic Acid Fup @ 2Hr Calcium Magnesium 1.6 Total Bilirubin Direct Bilirubin AST ALT Alkaline Phosphatase Total Creatine Kinase Troponin I High Sens Total Protein Albumin Lipase TSH 2.54 Urine Color Urine Appearance Urine pH Ur Specific [place] Urine Protein Urine Glucose (UA) Urine Ketones Urine Blood Urine Nitrite Ur Leukocyte Esterase Urine RBC Urine WBC Ur Squamous Epith Cells Amorphous Sediment Urine Bacteria Granular Casts Urine Mucus Stool Occult Blood COVID-19 (SRI) [facility] MD 11/07/20 11/07/20 11/07/20 13:04 13:21 14:46 MCV MCH MCHC RDW Plt Count MPV Immature Gran % (Auto) Neut % (Auto) Lymph % (Auto) [place] % (Auto) Eos % (Auto) Baso % (Auto) Lymph # (Auto) [place] # (Auto) Eos # (Auto) Baso # (Auto) Abs Immat Gran (auto) Absolute Neuts (auto) Absolute Nucleated RBC Nucleated RBC % (auto) PT INR Anion Gap Estim Creat Clear Calc Estimated GFR POC Glucose Random Glucose Fasting Glucose Lactic Acid Lactic Acid Fup @ 2Hr Calcium Magnesium Total Bilirubin Direct Bilirubin AST ALT Alkaline Phosphatase Total Creatine Kinase Troponin I High Sens 8.8 Total Protein Albumin Lipase TSH Urine Color YELLOW Urine Appearance CLEAR Urine pH 6.0 Ur Specific [place] 1.025 Urine Protein 1+ H Urine Glucose (UA) NEG Urine Ketones NEG Urine Blood NEG Urine Nitrite NEG Ur Leukocyte Esterase NEG Urine RBC 1-4 Urine WBC 1-4 Ur Squamous Epith Cells TRACE Amorphous Sediment 1+ Urine Bacteria NONE Granular Casts 5-9 Urine Mucus 2+ Stool Occult Blood NEGATIVE COVID-19 (SRI) COVID-19 Big Screen Tools 11/07/20 11/07/20 11/08/20 15:53 21:06 06:01 MCV 88.4 MCH 29.1 MCHC 32.9 RDW 14.7 Plt Count 135 L MPV 10.6 Immature Gran % (Auto) Neut % (Auto) Lymph % (Auto) [place] % (Auto) Eos % (Auto) Baso % (Auto) Lymph # (Auto) [place] # (Auto) Eos # (Auto) Baso # (Auto) Abs Immat Gran (auto) Absolute Neuts (auto) Absolute Nucleated RBC 0.000 Nucleated RBC % (auto) 0.0 PT INR Anion Gap Estim Creat Clear Calc Estimated GFR POC Glucose 133 H Random Glucose Fasting Glucose Lactic Acid Lactic Acid Fup @ 2Hr 1.6 Calcium Magnesium Total Bilirubin Direct Bilirubin AST ALT Alkaline Phosphatase Total Creatine Kinase Troponin I High Sens Total Protein Albumin Lipase TSH Urine Color Urine Appearance Urine pH Ur Specific [place] Urine Protein Urine Glucose (UA) Urine Ketones Urine Blood Urine Nitrite Ur Leukocyte Esterase Urine RBC Urine WBC Ur Squamous Epith Cells Amorphous Sediment Urine Bacteria Granular Casts Urine Mucus Stool Occult Blood COVID-19 (SRI) COVID-Fetch MD 11/08/20 11/08/20 11/08/20 06:01 07:17 11:35 MCV MCH MCHC RDW Plt Count MPV Immature Gran % (Auto) Neut % (Auto) Lymph % (Auto) [place] % (Auto) Eos % (Auto) Baso % (Auto) Lymph # (Auto) [place] # (Auto) Eos # (Auto) Baso # (Auto) Abs Immat Gran (auto) Absolute Neuts (auto) Absolute Nucleated RBC Nucleated RBC % (auto) PT INR Anion Gap 10 L Estim Creat Clear Calc 27.5 Estimated GFR 32 POC Glucose 101 124 H Random Glucose Fasting Glucose 99 Lactic Acid Lactic Acid Fup @ 2Hr Calcium 8.2 L D Magnesium Total Bilirubin Direct Bilirubin AST ALT Alkaline Phosphatase Total Creatine Kinase Troponin I High Sens Total Protein Albumin Lipase TSH Urine Color Urine Appearance Urine pH Ur Specific [place] Urine Protein Urine Glucose (UA) Urine Ketones Urine Blood Urine Nitrite Ur Leukocyte Esterase Urine RBC Urine WBC Ur Squamous Epith Cells Amorphous Sediment Urine Bacteria Granular Casts Urine Mucus Stool Occult Blood COVID-19 (SRI) COVID-19 Big Screen Tools Assessment and Plan (1) Paroxysmal A-fib: Status: Acute Assessment and Plan: 80M presented with elevated creatinine GABRIELA on CKD II-III likely worsening intake over last few weeks due to lyme disease GABRIELA from last week related to intolerance to doxycyline, now improving continues to improve Lyme rocephin, ID eval CAD asa, statin paroxysmal afib xarelto, toprol DM insulin Quality Stroke Does the patient have a stroke diagnosis?: No VTE Prior VTE?: No VTE Risk Level:: Medical - moderate - high VTE Device Contraindication: Treatment Not Indicated VTE Drug Contraindication: N/A - Med Ordered
[2020-11-08 11:57] VITALS: BP 106/57; PULSE 71; RESP 16; TEMP 36.3; O2SAT 97
--- NOTE | 2020-11-08 15:24 | MHC.CM.PN ---
CM MET WITH PT AND HIS WHO WAS AT BEDSIDE. THEY REPORT PT LIVES AT HOME AND IS INDEPENDENT WITH ALL CARE. PT USES A WHEELED WALKER TO AMBULATE AND NO OTHER DME. PT HAS NO IN HOME SERVICES. [facility] HOWEVER REPORTS BECAUSE THEY HAVE BCBS/[employer] COVERAGE, THEY DO NOT USE [facility] FOR ANYTHING. PT DID RECEIVE THE [employer] COVID 19 VACCINE, LAST DOSE AUGUST 17, 2020. PT REPORTS HE HAS A COMPLETED HCP AT HOME NAMING HIS , BRUCE, HIS AGENT. HE ALSO CONFIRMS HIS PCP IS [facility]. OBSERVATION NOTICE DELIVERED CURRENT DC PLAN IS HOME WITH NO SERVICES TO TRANSPORT
[2020-11-08 15:31] VITALS: BP 123/59; PULSE 62; RESP 14; TEMP 36.4; O2SAT 98
[2020-11-08 16:14] LABS: Glucose, Whole Blood 96 mg/dL (60-115)
--- NOTE | 2020-11-08 16:56 | PM.DS ---
DS: Providers Provider Date of Service: 11/08/20 Date of admission: 11/07/20 17:24 Primary care physician: Marin Nova MD Consults: 11/07/20 16:36 Consult to Infectious Diseases Routine Consulting Provider: Mis Alfonso Reason for consultation: lyme DS: Diagnosis Discharge Diagnosis (1) Paroxysmal A-fib: Status: Acute DS: Medications Discharge Medications Home Medications: Home Medications Medication Instructions Recorded Confirmed amoxicillin 500 mg capsule 500 mg PO QID 11/07/20 11/07/20 aspirin 81 mg chewable tablet 81 mg PO BEDTIME 11/07/20 11/07/20 (Aspirin Childrens) ezetimibe 10 mg tablet 10 mg PO BEDTIME 11/07/20 11/07/20 metformin 500 mg tablet 500 mg PO BID 11/07/20 11/07/20 metoprolol succinate 25 mg 25 mg PO DAILY 11/07/20 11/07/20 tablet,extended release 24 hr nitroglycerin 0.4 mg sublingual 0.4 mg SUBLINGUAL Q5M PRN 11/07/20 11/07/20 tablet omeprazole 20 mg capsule,delayed 20 mg PO BID@0630,1630 11/07/20 11/07/20 release rivaroxaban 15 mg tablet (Xarelto) 15 mg PO QPM 11/07/20 11/07/20 rosuvastatin 40 mg tablet 40 mg PO BEDTIME 11/07/20 11/07/20 valsartan 40 mg tablet 40 mg PO BEDTIME 11/07/20 11/07/20 vit C 250 mg-vit E 90 mg-zinc 40 1 tab PO BID 11/07/20 11/07/20 mg-copper 1 co-riipgm-vphrjv capsule (PreserVision AREDS-2) DS: Summary Hospital Course Hospital Course: patient was admitted for GABRIELA, likely due to dewhyrdation, poor intake. he was given fluids, creatinine improved from 4.9 to 1.99. he was also given ceftriaxone and seen by ID for lyme. recommendations were to conitnue amoxil 500mg bid for 24 days, and follow up labs. patient is feeling better and will be discharged home Time Spent with Patient Time attestation: Total time spent providing and/or coordinating discharge services: Discharge coordination time: Greater than 30 minutes Quality: Stroke Does the patient have a stroke diagnosis?: No Physical Exam Vital Signs: Vital Signs: Last Vital Signs Temp 97.6 F 11/08/20 15:31 Pulse 62 11/08/20 15:31 Resp 14 11/08/20 15:31 BP 123/59 L 11/08/20 15:31 Pulse Ox 98 11/08/20 15:31 Body Mass Index 27.5 General: AO X 3, no acute distress Resp: CTA bilateral CVS: S1,S2,RRR GI: soft, non tender, non distended Neuro: motor grossly intact Psych: appropriate affect DS: Data Data Completed and Pending Labs on day of discharge: Laboratory Results - last 24 hr 11/07/20 11/08/20 11/08/20 21:06 06:01 06:01 WBC 8.9 RBC 2.92 L Hgb 8.5 L Hct 25.8 L MCV 88.4 MCH 29.1 MCHC 32.9 RDW 14.7 Plt Count 135 L MPV 10.6 Absolute Nucleated RBC 0.000 Nucleated RBC % (auto) 0.0 Sodium 136 Potassium 4.2 Chloride 107 Carbon Dioxide 23 Anion Gap 10 L BUN 25 H Creatinine 1.99 H Estim Creat Clear Calc 27.5 Estimated GFR 32 POC Glucose 133 H Fasting Glucose 99 Calcium 8.2 L D 11/08/20 11/08/20 11/08/20 07:17 11:35 16:03 WBC RBC Hgb Hct MCV MCH MCHC RDW Plt Count MPV Absolute Nucleated RBC Nucleated RBC % (auto) Sodium Potassium Chloride Carbon Dioxide Anion Gap BUN Creatinine Estim Creat Clear Calc Estimated GFR POC Glucose 101 124 H 96 Fasting Glucose Calcium Preliminary micro results at discharge 11/07/20 12:54 Blood Culture - Preliminary Blood - Venous No growth after 24 hours. 11/07/20 13:04 Blood Culture - Preliminary Blood - Venous No growth after 24 hours. Discharge Plan Discharge Patient Disposition: Home, Self-Care Referrals: Marin Nova MD [Primary Care Provider] - 1 Week Mis Alfonso MD [Physician] - 1 Week (lyme) Discharge Medications: Continued PreserVision AREDS-2 250-90-40-1 mg Capsule 1 tab PO BID RF: 0 Xarelto 15 mg Tablet 15 mg PO QPM RF: 0 valsartan 40 mg Tablet 40 mg PO BEDTIME RF: 0 omeprazole 20 mg Capsule,Delayed Release(Dr/Ec) 20 mg PO BID@0630,1630 RF: 0 metoprolol succinate 25 mg Tablet Extended Release 24 Hr 25 mg PO DAILY RF: 0 rosuvastatin 40 mg Tablet 40 mg PO BEDTIME RF: 0 metformin 500 mg Tablet 500 mg PO BID RF: 0 aspirin [Aspirin Childrens] 81 mg Tablet,Chewable 81 mg PO BEDTIME RF: 0 ezetimibe 10 mg Tablet 10 mg PO BEDTIME RF: 0 nitroglycerin 0.4 mg Tablet, Sublingual 0.4 mg SUBLINGUAL Q5M PRN (Reason: Chest Pain) RF: 0 Changed amoxicillin 500 mg Capsule 500 mg PO BID 24 Days Qty: 0 RF: 0 Discharge Orders: Discharge Order (Routine); Ordered 11/08/20 Ordered By: Ezekiel Hartman Diet: advance to usual diet Activity on Discharge: As tolerated Stand Alone Forms: Patient Portal Discharge page Care Plan Goals: reocvery Health Concerns: gabriela, lyme Plan of Treatment: continue amoxil, follow up ID and nephro Assessment: see above
[2020-11-08] MEDS: Rivaroxaban 15 MG TABLET PO (17:06)
[2020-11-08] MEDS: cefTRIAXone sodium 1 GM in 0.9 % Sodium Chloride 50 ML IV (17:06)
--- NOTE | 2020-11-08 21:40 | W.PM.IDCN ---
History of Present Illness Data of Consult Service Date: 11/08/20 Requesting physician: Ezekiel Hartman Primary Care Provider: Marin Nova MD HPI Reason for consult: renal failure,malaise He presents with weakness over last week. He has no nausea or vomiting. He had fatigue starting about four weeks ago. He was sent by PCP for blood work and found to have increased creatinine. He came to hospital and preliminary Lyme test negative. Review of Systems Review of Systems: Yes all other systems are reviewed and are negative PMFSH Past Medical History Medical History CAD (coronary artery disease) Cataracts, both eyes Diabetes GERD (gastroesophageal reflux disease) High cholesterol Lyme disease Paroxysmal A-fib Stage 3 chronic kidney disease Surgical History Surgical History Hx of cholecystectomy S/P triple vessel bypass Social History Social History Alcohol intake: never Patient Tobacco Use Status: Former Tobacco user Tobacco use type: Cigarette Use of substances other than those prescribed or required for medical reasons: No Advance Directives: No Advance Directives Information Provided: No service: Yes Current occupational status: retired Meds Allergies Allergy/AdvReac Type Severity Reaction Status Date / Time adhesive tape [ADHESIVE TAPE] Allergy Intermediate BLISTERS Verified 11/07/20 11:47 doxycycline Allergy Vomiting Verified 11/07/20 11:48 some adhesives Allergy Unknown blisters Uncoded 09/09/17 00:00 Home Medications Medication Instructions Recorded Confirmed Last Taken Type aspirin 81 mg chewable tablet 81 mg PO BEDTIME 11/07/20 11/07/20 Unknown History (Aspirin Childrens) ezetimibe 10 mg tablet 10 mg PO BEDTIME 11/07/20 11/07/20 Unknown History metformin 500 mg tablet 500 mg PO BID 11/07/20 11/07/20 Unknown History metoprolol succinate 25 mg 25 mg PO DAILY 11/07/20 11/07/20 Unknown History tablet,extended release 24 hr nitroglycerin 0.4 mg sublingual 0.4 mg SUBLINGUAL Q5M PRN 11/07/20 11/07/20 Unknown History tablet omeprazole 20 mg capsule,delayed 20 mg PO BID@0630,1630 11/07/20 11/07/20 Unknown History release rivaroxaban 15 mg tablet (Xarelto) 15 mg PO QPM 11/07/20 11/07/20 Unknown History rosuvastatin 40 mg tablet 40 mg PO BEDTIME 11/07/20 11/07/20 Unknown History valsartan 40 mg tablet 40 mg PO BEDTIME 11/07/20 11/07/20 Unknown History vit C 250 mg-vit E 90 mg-zinc 40 1 tab PO BID 11/07/20 11/07/20 Unknown History mg-copper 1 da-wrjpka-viidap capsule (PreserVision AREDS-2) Physical Exam Vital Signs: Vital Signs: Last Vital Signs Temp 97.6 F 11/08/20 15:31 Pulse 62 11/08/20 15:31 Resp 14 11/08/20 15:31 BP 123/59 L 11/08/20 15:31 Pulse Ox 98 11/08/20 15:31 Body Mass Index 27.5 Const: General: cooperative Orientation/consciousness: patient oriented x3 HENMT: Head: Yes normal to inspection Mouth: Normal oral and palatal mucosa present Eyes: General: appearance normal, both eyes and all related structures Resp: Effort & Inspection: normal respiratory effort Cardio: Rate: regular rate Rhythm: regular rhythm GI: Palpation (GI): Soft to palpation and nontender : General: Yes no CVA tenderness Back/Spine/Pelvis: Back: no CVA tenderness Skin: General skin exam: no rashes or lesions noted Neuro: General: patient oriented x3 Results Labs CBC & Chem 7: 11/08/20 06:01 11/08/20 06:01 Labs: Short CBC 11/08/20 Range/Units 06:01 WBC 8.9 (4.8-10.8) X10*3/uL Hgb 8.5 L (14.0-18.0) g/dl Hct 25.8 L (42-52) % Plt Count 135 L (160-400) X10*3/uL BMP 11/08/20 06:01 Sodium 136 Potassium 4.2 Chloride 107 Carbon Dioxide 23 BUN 25 H Creatinine 1.99 H Calcium 8.2 L D Microbiology Microbiology Results: Microbiology 11/07/20 12:54 Blood - Venous Blood Culture - Preliminary No growth after 24 hours. 11/07/20 13:04 Blood - Venous Blood Culture - Preliminary No growth after 24 hours. Assessment and Plan (1) Lyme disease: Status: Acute He couldnt tolerate po Doxycycline due to vomiting He has likely Lyme disease, hopefully not anaplasma since cant tolerate po Doxycyclin He has been started on Amoxicillin Would give po amoxicillin 500 mg bid renal dose adjust for 22 days, has at home If fever again rx IV Doxycycline 100 mg bid for 10 days (2) Acute renal failure: Qualifiers: Acute renal failure type: unspecified Qualified Code(s): N17.9 - Acute kidney failure, unspecified Status: Acute
== END 2020-11-08 19:00 | disposition home or self-care (01) ==
LOC: HO.ED 15:19 → HO.EDOVER 17:25 → HO.S3 19:38
PROVIDERS: Admitting Provider Internal Medicine; Emergency Provider Emergency Medicine; PCP Internal Medicine; Visit Provider Internal Medicine
DX: N17.9 Acute kidney failure, unspecified (principal); N18.30 Chronic kidney disease, stage 3 unspecified; A69.20 Lyme disease, unspecified; R53.81 Other malaise; I25.10 Atherosclerotic heart disease of native coronary artery without angina pectoris; E11.22 Type 2 diabetes mellitus with diabetic chronic kidney disease; E78.00 Pure hypercholesterolemia, unspecified; I48.0 Paroxysmal atrial fibrillation; R79.89 Other specified abnormal findings of blood chemistry; Z87.891 Personal history of nicotine dependence; Z95.1 Presence of aortocoronary bypass graft; Z43.6 Encounter for attention to other artificial openings of urinary tract; Z88.1 Allergy status to other antibiotic agents; Z88.8 Allergy status to other drugs, medicaments and biological substances; Z79.82 Long term (current) use of aspirin; Z79.84 Long term (current) use of oral hypoglycemic drugs; Z79.899 Other long term (current) drug therapy
CPT/HCPCS: 36415; 71045; 74176; 80048; 80076; 81001; 82272; 82550; 82947; 83605; 83690; 83735; 84443; 84484; 85025; 85027; 85610; 87040; 87635; 93005; 96361; 96365; 96375; 99218; 99285; J0696; J2060

== ENCOUNTER 2020-11-16 11:49 | Outpatient (REF) | payer MEDICARE, SELFPAY ==
[2020-11-16 13:29] LABS: Anion Gap 14 (12-20); Blood Urea Nitrogen 16 mg/dL (9-16); Calcium 9.3 mg/dL (8.4-10.2); Carbon Dioxide 25 mmol/L (22-29); Chloride 105 mmol/L (96-108); Estimated Glomerular Filt Rate 32; Glucose Random 122 mg/dL (60-115); Potassium 4.7 mmol/L (3.3-5.1); Sodium 139 mmol/L (135-145)
[2020-11-16 13:35] LABS: Estimated Average Glucose 126 mg/dL
[2020-11-16 14:28] LABS: Creatinine Urine 159.33 mg/dL; Microalbum/Creatinine Ratio Ur 82.8 ug/mg cr
== END 2020-11-16 11:50 | disposition home or self-care (01) ==
LOC: HO.LAB 11:49
PROVIDERS: PCP Internal Medicine; Visit Provider Internal Medicine
DX: N18.9 Chronic kidney disease, unspecified (principal); E11.9 Type 2 diabetes mellitus without complications
CPT/HCPCS: 36415; 80048; 82043; 83036

== ENCOUNTER 2020-12-05 10:32 | Outpatient (REF) | payer MEDICARE, SELFPAY ==
[2020-12-05 11:22] LABS: MANUAL DIFF FLAG NO
[2020-12-05 11:29] LABS: Basophils Absolute Auto 0.1 X10*3/uL (0.0-0.2); Basophils Percent Auto 0.9 % (0-2); Eosinophils Absolute Auto 0.4 X10*3/uL (0.0-0.4); Eosinophils Percent Auto 5.2 % (0-4); Hematocrit 32.5 % (42-52); Hemoglobin 10.3 g/dl (14.0-18.0); Imm Gran Abs Auto 0.01 X10*3/uL (0.00-0.03); Imm Gran Pct Auto 0.1 % (0.0-0.4); Mean Corpuscular HGB Conc 31.7 g/dl (31.0-36.0); Mean Corpuscular Hemoglobin 30.4 pg (27.0-33.0); Mean Corpuscular Volume 95.9 fL (80-98); Mean Platelet Volume 10.7 fL (9.4-12.4); Monocytes Absolute Auto 0.9 X10*3/uL (0.1-1.2); Monocytes Percent Auto 12.7 % (2-11); Neutrophils Absolute Auto 3.4 X10*3/uL (2.0-8.3); Neutrophils Percent Auto 51.1 % (45-73); Platelet Count 196 X10*3/uL (160-400); Red Blood Count 3.39 X10*6/uL (4.60-5.80); Red Cell Distribution Width 16.4 % (11.0-16.0); White Blood Count 6.7 X10*3/uL (4.8-10.8)
[2020-12-05 11:59] LABS: Alanine Aminotransferase 20 U/L (0-40); Albumin Level 3.4 g/dL (3.5-5.0); Alkaline Phosphatase 49 U/L (39-117); Anion Gap 9 (12-20); Aspartate Amino Transferase 23 U/L (5-37); Bilirubin Total 0.6 mg/dL (0.0-1.0); Blood Urea Nitrogen 14 mg/dL (9-16); Calcium 8.9 mg/dL (8.4-10.2); Carbon Dioxide 27 mmol/L (22-29); Chloride 107 mmol/L (96-108); Estimated Glomerular Filt Rate 48; Glucose Random 117 mg/dL (60-115); Sodium 138 mmol/L (135-145); Total Protein 6.2 g/dL (6.5-8.0)
[2020-12-05 12:55] LABS: Estimated Average Glucose 108 mg/dL; Hemoglobin A1c % 5.4 %
== END 2020-12-05 10:33 | disposition home or self-care (01) ==
LOC: HO.LAB 10:32
PROVIDERS: PCP Internal Medicine; Visit Provider Internal Medicine
DX: I48.0 Paroxysmal atrial fibrillation (principal); E11.22 Type 2 diabetes mellitus with diabetic chronic kidney disease; N18.9 Chronic kidney disease, unspecified; Z86.19 Personal history of other infectious and parasitic diseases
CPT/HCPCS: 36415; 80053; 83036; 85025

== ENCOUNTER 2020-12-10 06:58 | Day surgery (SDC) | payer MEDICARE, SELFPAY ==
[2020-12-04 11:22] VITALS: BMI 24.8
--- NOTE | 2020-12-05 17:15 | HP_ITS ---
DATE OF SERVICE: 12/10/2020 HISTORY OF PRESENT ILLNESS: The patient is an 80-year-old male, who was seen in the office for preop evaluation prior to cataract surgery on 12/03/2020. He is scheduled for surgery on 12/[address] Duff on 12/24. REVIEW OF SYSTEMS: Weight has been stable. No fevers or chills. No headaches or dizziness. No chest pains or palpitations. No peripheral edema. No shortness of breath or coughing. No heartburn or abdominal pain. Some nocturia. 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 He is hard of hearing. Sleep and appetite are normal. No complaints of seasonal allergies. No skin complaints. PAST MEDICAL HISTORY: Significant for paroxysmal atrial fibrillation on Xarelto, gastroesophageal reflux disease, chronic renal insufficiency, wef-ykgejlp-ncqhjcove diabetes, anemia, hard of hearing, coronary artery disease, PTSD, history of tobacco use, status post Lyme disease, peripheral vascular disease. PAST SURGICAL HISTORY: He has had hernia repair x2 on the left appendix, 3 cardiac stents, gallbladder surgery. FAMILY HISTORY: Mother at 80 from CVA. Father at 69 from PA and vascular disease. He also had prostate cancer. One brother in his 80s, he had coronary artery disease. SOCIAL HISTORY: He is , lives with his . They have 3 children. PRESENT MEDICATIONS: Baby aspirin 81 mg, Zetia 10 mg, metoprolol-XL 25 mg once a day, Prilosec 20 mg a day, Xarelto 15 mg a day, PreserVision, and Crestor 40 mg a day. PHYSICAL EXAMINATION: GENERAL: He is awake and alert, in no distress. VITAL SIGNS: Temperature is 97.6, pulse 68, respirations 12, blood pressure 104/56, weight is 157.5, oxygen is 98% on room air. He is in no distress. HEENT: Clear. TMs clear. NECK: Supple. No lymph nodes, bruits, or masses. HEART: Sounds S1, S2. Atrial fibrillation. LUNGS: Clear. ABDOMEN: Soft, nontender. Positive bowel sounds. No HSM. EXTREMITIES: No clubbing, cyanosis, or edema. 1+ pulses. Appropriate affect. He is hard of hearing. ASSESSMENT AND PLAN: He is medically stable for the proposed procedure. I will be available if there are any medical issues. He has had laboratory tests completed November 16. Normal electrolytes. Creatinine is 2.0, sugar 122, A1c 6. Blood count has been done previously during the month of October. He is medically stable for the proposed procedure. I will be available if there are any medical questions. Brett Nova MD FC/MODL / [phone]
--- NOTE | 2020-12-06 08:05 | MHC.SHP ---
Pre-Procedural Eval Section A Date of Service: 12/06/20 The patient is an INPATIENT: No Changes since office visit: No Cold of Flu in the past 2 weeks, No New Medical Problems, No Changes in Medication and No Patient answered all questions The History & Physical has been completed within 30 days and I have reviewed it.: Yes Section B Chief Complaint: cataract left eye Allergies: Allergies Allergy/AdvReac Type Severity Reaction Status Date / Time adhesive tape [ADHESIVE TAPE] Allergy Intermediate BLISTERS Verified 12/04/20 11:13 doxycycline Allergy Vomiting Verified 12/04/20 11:13 Plan Diagnosis/Plan: Unchanged I have reviewed the history and physical and performed a pertinent physical examination on my patient. No changes have occurred unless specified.
--- NOTE | 2020-12-07 08:51 | P.CONAN_ITS ---
Documented by User: Yumiko Saravia NP 12/07/20 09:07 HPI - Anesthesia Eval Consult details Narrative: 80yo M for Left Cataract Extraction IOL Insertion PCP cleared No prev cataract on record Xarelto for afib PMFSH Active Problems Active Problems: All Active Problems (Updated 12/04/20 @ 11:32 by Yudelka Connors RN) Anemia (Acute) Acute renal failure (Acute) Paroxysmal A-fib (Acute) CAD (coronary artery disease) (Acute) High cholesterol (Acute) Lyme disease (Acute) Diabetes (Acute) Past Medical History Medical History CAD (coronary artery disease) Cataracts, both eyes COVID-19 vaccine series completed Diabetes GERD (gastroesophageal reflux disease) High cholesterol HTN (hypertension) Lyme disease Myocardial infarction On anticoagulant therapy On beta audrey at home ALTAGRACIA (obstructive sleep apnea) Paroxysmal A-fib Stage 3 chronic kidney disease Surgical History Surgical History History of appendectomy History of esophagogastroduodenoscopy (EGD) History of left inguinal hernia repair History of right inguinal hernia repair Hx of cholecystectomy Hx of colonoscopy S/P triple vessel bypass Social History Social History Are you a primary rn progressive care unit to a significant other at home: No Do you presently have visiting nurse or other home services: No Alcohol intake: never Patient Tobacco Use Status: Former Tobacco user Quit Date: 40+ yrs ago Tobacco use type: Cigarette Second Hand Smoke Exposure: No Use of substances other than those prescribed or required for medical reasons: No Have you been hit, kicked, punched, or otherwise hurt by someone within the past year? If so, by whom?: No Advance Directives: No Advance Directives Information Provided: No Advance Directives on File: No Recently lost weight without trying: No Eating poorly because of decreased appetite: No Nutrition Risks: No Nutritional Risk service: Yes Current occupational status: retired Meds Allergies Allergy/AdvReac Type Severity Reaction Status Date / Time adhesive tape [ADHESIVE TAPE] Allergy Intermediate BLISTERS Verified 12/10/20 08:11 doxycycline Allergy Vomiting Verified 12/10/20 08:11 Home Medications Medication Instructions Recorded Confirmed Last Taken Type aspirin 81 mg chewable tablet 81 mg PO BEDTIME 11/07/20 12/10/20 12/09/20 History (Aspirin Childrens) ezetimibe 10 mg tablet 10 mg PO BEDTIME 11/07/20 12/04/20 Unknown History metformin 500 mg tablet 500 mg PO BID 11/07/20 12/04/20 Unknown History metoprolol succinate 25 mg 25 mg PO DAILY 11/07/20 12/10/20 12/10/20 06:00 History tablet,extended release 24 hr nitroglycerin 0.4 mg sublingual 0.4 mg SUBLINGUAL Q5M PRN 11/07/20 12/04/20 Unknown History tablet omeprazole 20 mg capsule,delayed 20 mg PO BID@0630,1630 11/07/20 12/10/20 06:00 History release rivaroxaban 15 mg tablet (Xarelto) 15 mg PO QPM 11/07/20 12/10/20 12/09/20 History rosuvastatin 40 mg tablet 40 mg PO BEDTIME 11/07/20 12/04/20 Unknown History valsartan 40 mg tablet 40 mg PO BEDTIME 11/07/20 12/04/20 Unknown History vit C 250 mg-vit E 90 mg-zinc 40 1 tab PO BID 11/07/20 12/04/20 Unknown History mg-copper 1 iu-hapald-gjrmnl capsule (PreserVision AREDS-2) Exam Exam Date and Time: December 07, 2020 0851 Height,Weight and Vital Signs: Height 5 ft 6 in Weight 69.853 kg Pertinent Lab Results Pertinent Lab Results: Laboratory Tests 12/05/20 12/05/20 10:50 10:50 WBC 6.7 Hgb 10.3 L D Hct 32.5 L D Plt Count 196 D Sodium 138 Potassium 5.0 Chloride 107 Carbon Dioxide 27 BUN 14 Creatinine 1.41 H Narrative Narrative: EKG 10/2020 Vent. Rate : 078 BPM ? ? Atrial Rate : 078 BPM ?? P-R Int : 136 ms? QRS Dur : 084 ms ? ? QT Int : 380 ms ? ? ? P-R-T Axes : 040 001 -18 degrees ?? QTc Int : 433 ms ? Sinus rhythm with Premature atrial complexes Inferior infarct (cited on or before 25-JUL-2004) Abnormal ECG When compared with ECG of 17-JAN-2008 14:00, Premature atrial complexes are now Present T wave inversion now evident in Inferior leads Nonspecific T wave abnormality, improved in Anterolateral leads Assessment and Plan Assessment Anesthesia Assessment: Chart Reviewed Documented by User: Rosenda Mathews MD 12/10/20 08:31 [facility] Past Medical History Medical History CAD (coronary artery disease) Cataracts, both eyes COVID-19 vaccine series completed Diabetes GERD (gastroesophageal reflux disease) High cholesterol HTN (hypertension) Lyme disease Myocardial infarction On anticoagulant therapy On beta audrey at home ALTAGRACIA (obstructive sleep apnea) Paroxysmal A-fib Stage 3 chronic kidney disease Surgical History Surgical History History of appendectomy History of esophagogastroduodenoscopy (EGD) History of left inguinal hernia repair History of right inguinal hernia repair Hx of cholecystectomy Hx of colonoscopy S/P triple vessel bypass History of Problems with Anesthesia: No Social History Social History Are you a primary rn progressive care unit to a significant other at home: No Do you presently have visiting nurse or other home services: No Alcohol intake: never Patient Tobacco Use Status: Former Tobacco user Quit Date: 40+ yrs ago Tobacco use type: Cigarette Second Hand Smoke Exposure: No Use of substances other than those prescribed or required for medical reasons: No Have you been hit, kicked, punched, or otherwise hurt by someone within the past year? If so, by whom?: No Advance Directives: No Advance Directives Information Provided: No Advance Directives on File: No Recently lost weight without trying: No Eating poorly because of decreased appetite: No Nutrition Risks: No Nutritional Risk service: Yes Current occupational status: retired Meds Allergies Allergy/AdvReac Type Severity Reaction Status Date / Time adhesive tape [ADHESIVE TAPE] Allergy Intermediate BLISTERS Verified 12/10/20 08:11 doxycycline Allergy Vomiting Verified 12/10/20 08:11 Home Medications Medication Instructions Recorded Confirmed Last Taken Type aspirin 81 mg chewable tablet 81 mg PO BEDTIME 11/07/20 12/10/20 12/09/20 History (Aspirin Childrens) ezetimibe 10 mg tablet 10 mg PO BEDTIME 11/07/20 12/04/20 Unknown History metformin 500 mg tablet 500 mg PO BID 11/07/20 12/04/20 Unknown History metoprolol succinate 25 mg 25 mg PO DAILY 11/07/20 12/10/20 12/10/20 06:00 History tablet,extended release 24 hr nitroglycerin 0.4 mg sublingual 0.4 mg SUBLINGUAL Q5M PRN 11/07/20 12/04/20 Unknown History tablet omeprazole 20 mg capsule,delayed 20 mg PO BID@0630,1630 11/07/20 12/10/20 12/10/20 06:00 History release rivaroxaban 15 mg tablet (Xarelto) 15 mg PO QPM 11/07/20 12/10/20 12/09/20 History rosuvastatin 40 mg tablet 40 mg PO BEDTIME 11/07/20 12/04/20 Unknown History valsartan 40 mg tablet 40 mg PO BEDTIME 11/07/20 12/04/20 Unknown History vit C 250 mg-vit E 90 mg-zinc 40 1 tab PO BID 11/07/20 12/04/20 Unknown History mg-copper 1 cq-fghaig-cxccpl capsule (PreserVision AREDS-2) Exam Airway Mallampati Class: II (Esentulous) TM Dist: >3cm Neck ROM: Full Loose/Missing/Broken Teeth: Yes, Upper and Lower Heart: RRR Lungs: CTA Assessment and Plan Final Anesthetic Review History of Problems with Anesthesia: No NPO: Yes ASA Class: III Final Preanesthetic Review: Meds/Allgs Chart Reviewed, Consent Obtained/Reviewed and Anes Risks/Benef Reviewed Patient Risk: Intermediate Procedure Risk: Low Anesthetic Plan Anesthetic Plan: MAC: Disposition: Standard PACU
[2020-12-10 08:19] VITALS: BP 126/58; PULSE 56; RESP 16; TEMP 36.2; O2SAT 99
[2020-12-10 08:21] LABS: Glucose, Whole Blood 101 mg/dL (60-115)
[2020-12-10] MEDS: Tetracaine HCl/PF 0.5% Oph Sol 4 ML DROPS 1 DROP EYE-LEFT (08:30)
[2020-12-10] MEDS: Tropicamide 1 % Ophth Sol 3 ML BTL 1 DROP EYE-LEFT ×3 (08:32→08:46)
[2020-12-10] MEDS: Phenylephrine HCL 2.5% Oph SoL 2 ML BOTTLE 1 DROP EYE-LEFT ×3 (08:36→08:50)
--- NOTE | 2020-12-10 09:34 | HO.PNOPHT ---
Ophthalmology Procedure Procedure Date of Service: 12/10/20 Ophthalmology Viscoelastic: Healon Duet Dual Pack Pro Ophthalmology Lenses: TECNIS [id number] (22.5) Procedure Notes: PREOPERATIVE DIAGNOSIS: Decreased visual acuity left eye secondary to cataract POSTOPERATIVE DIAGNOSIS: Same PROCEDURE: Left cataract extraction with intraocular lens insertion SURGEON: Clarence Duff M.D. ANESTHESIA: Topical/MAC ESTIMATED BLOOD LOSS: None COMPLICATIONS: None After obtaining informed consent, the patient was brought to the operation room suite and placed in the supine position. After adequate sedation per anesthesia, topical drops of Tetracaine were given to the left eye. The eye was then prepped and draped in the usual sterile fashion. The operating room microscope was then positioned over the operative eye and a lid speculum placed. A paracentesis was created. Viscoelastic was then instilled into the anterior chamber. A three plane incision was then created temporally, utilizing a 2.85 mm keratome. Capsulotomy forceps were then utilized to create a circular tear capsulotomy. Hydrodissection and hydrodelineation were carried out until adequate mobilization of the nucleus occurred. Phacoemulsification was then utilized to remove the dense central nucleus followed by removal of the cortical material utilizing the automated aspiration irrigation unit. Viscoat elastic was instilled into the posterior capsular bag followed by placement of a posterior chamber intraocular lens without difficulty. The residual Viscoat elastic was then removed utilizing the automated IA machine. The wound was check and found to be watertight. The patient tolerated the procedure well and the lid speculum was removed. Intracameral injection of Vigamox 0.1 mL followed by a subtenon injection of Kenalog-40 0.2 mL were administered. The patient will be seen in the a.m.
[2020-12-10 09:57] VITALS: BP 122/48; PULSE 59; RESP 16; TEMP 36.1; O2SAT 99
== END 2020-12-10 10:06 | disposition home or self-care (01) ==
PROVIDERS: PCP Internal Medicine; Visit Provider Ophthalmology
PROC: (CPT 66985; principal; 2020-12-10 10:10)
DX: H25.12 Age-related nuclear cataract, left eye (principal); E11.22 Type 2 diabetes mellitus with diabetic chronic kidney disease; I12.9 Hypertensive chronic kidney disease with stage 1 through stage 4 chronic kidney disease, or unspecified chronic kidney disease; N18.9 Chronic kidney disease, unspecified; I48.0 Paroxysmal atrial fibrillation; Z79.01 Long term (current) use of anticoagulants; Z79.82 Long term (current) use of aspirin; Z79.899 Other long term (current) drug therapy
CPT/HCPCS: 66984; 82947; J2250; J3010; J3300; V2632

== ENCOUNTER 2020-12-24 08:09 | Day surgery (SDC) | payer MEDICARE, SELFPAY ==
[2020-12-04 11:29] VITALS: BMI 24.8
--- NOTE | 2020-12-19 14:22 | MHC.SHP ---
Pre-Procedural Eval Section A Date of Service: 12/19/20 The patient is an INPATIENT: No Changes since office visit: No Cold of Flu in the past 2 weeks, No New Medical Problems, No Changes in Medication and No Patient answered all questions The History & Physical has been completed within 30 days and I have reviewed it.: Yes Section B Chief Complaint: cataract right eye Allergies: Allergies Allergy/AdvReac Type Severity Reaction Status Date / Time adhesive tape [ADHESIVE TAPE] Allergy Intermediate BLISTERS Verified 12/10/20 08:11 doxycycline Allergy Vomiting Verified 12/10/20 08:11 Plan Diagnosis/Plan: Unchanged I have reviewed the history and physical and performed a pertinent physical examination on my patient. No changes have occurred unless specified.
[2020-12-24 09:33] VITALS: BP 126/55; PULSE 56; RESP 16; TEMP 36.7; O2SAT 98
[2020-12-24] MEDS: Tetracaine HCl/PF 0.5% Oph Sol 4 ML DROPS 1 DROP EYE-RIGHT (09:36)
[2020-12-24 09:38] LABS: Glucose, Whole Blood 121 mg/dL (60-115)
[2020-12-24] MEDS: Tropicamide 1 % Ophth Sol 3 ML BTL 1 DROP EYE-RIGHT ×3 (09:38→09:44)
[2020-12-24] MEDS: Phenylephrine HCL 2.5% Oph SoL 2 ML BOTTLE 1 DROP EYE-RIGHT ×3 (09:42→09:45)
[2020-12-24] MEDS: Lactated Ringers 500 ML 20 ML IVCONT (09:44)
--- NOTE | 2020-12-24 09:45 | P.CONAN_ITS ---
[facility] Active Problems Active Problems: All Active Problems (Updated 12/04/20 @ 11:32 by Yudelka puga RN) Anemia (Acute) Acute renal failure (Acute) Paroxysmal A-fib (Acute) CAD (coronary artery disease) (Acute) High cholesterol (Acute) Lyme disease (Acute) Diabetes (Acute) Past Medical History Medical History CAD (coronary artery disease) Cataracts, both eyes COVID-19 vaccine series completed Diabetes GERD (gastroesophageal reflux disease) High cholesterol HTN (hypertension) Lyme disease Myocardial infarction On anticoagulant therapy On beta audrey at home ALTAGRACIA (obstructive sleep apnea) Paroxysmal A-fib Stage 3 chronic kidney disease Family History Family history of problems with anesthesia: No Surgical History Surgical History History of appendectomy History of cataract extraction History of esophagogastroduodenoscopy (EGD) History of left inguinal hernia repair History of right inguinal hernia repair Hx of cholecystectomy Hx of colonoscopy S/P triple vessel bypass History of Problems with Anesthesia: No Social History Social History Are you a primary healthcare facility administrator to a significant other at home: No Do you presently have visiting nurse or other home services: No Alcohol intake: never Patient Tobacco Use Status: Former Tobacco user Quit Date: 40+ yrs ago Tobacco use type: Cigarette Second Hand Smoke Exposure: No Use of substances other than those prescribed or required for medical reasons: No Have you been hit, kicked, punched, or otherwise hurt by someone within the past year? If so, by whom?: No Advance Directives: No Advance Directives Information Provided: No Advance Directives on File: No Recently lost weight without trying: No Eating poorly because of decreased appetite: No Nutrition Risks: No Nutritional Risk service: Yes Current occupational status: retired Meds Allergies Allergy/AdvReac Type Severity Reaction Status Date / Time adhesive tape [ADHESIVE TAPE] Allergy Intermediate BLISTERS Verified 12/10/20 08:11 doxycycline Allergy Vomiting Verified 12/10/20 08:11 Active Medications: Current Medications Lactated Ringer's (Lr) 500 mls @ 20 mls/hr IVCONT .Q24H MARA Last Admin: 12/24/20 09:44 Dose: 20 mls/hr Documented by: Povidone Iodine (Povidone Iodine 5 % Ophth Soln 30 Ml Bottle) 1 appl EYE-RIGHT PREOP PRN PRN Reason: Pre-Op Surgical Implant Prophy Home Medications Medication Instructions Recorded Confirmed Last Taken Type aspirin 81 mg chewable tablet 81 mg PO BEDTIME 11/07/20 12/10/20 12/09/20 History (Aspirin Childrens) ezetimibe 10 mg tablet 10 mg PO BEDTIME 11/07/20 12/04/20 Unknown History metformin 500 mg tablet 500 mg PO BID 11/07/20 12/04/20 Unknown History metoprolol succinate 25 mg 25 mg PO DAILY 11/07/20 12/10/20 12/10/20 06:00 History tablet,extended release 24 hr nitroglycerin 0.4 mg sublingual 0.4 mg SUBLINGUAL Q5M PRN 11/07/20 12/04/20 Unknown History tablet omeprazole 20 mg capsule,delayed 20 mg PO BID@0630,1630 11/07/20 12/10/20 12/10/20 06:00 History release rivaroxaban 15 mg tablet (Xarelto) 15 mg PO QPM 11/07/20 12/10/20 12/09/20 History rosuvastatin 40 mg tablet 40 mg PO BEDTIME 11/07/20 12/04/20 Unknown History valsartan 40 mg tablet 40 mg PO BEDTIME 11/07/20 12/04/20 Unknown History vit C 250 mg-vit E 90 mg-zinc 40 1 tab PO BID 11/07/20 12/04/20 Unknown History mg-copper 1 [id number] capsule (PreserVision AREDS-2) Exam Exam Date and Time: December 24, 2020 0945 Height,Weight and Vital Signs: Height 5 ft 6 in Weight 69.853 kg Last Vital Signs Temp 98.1 F 12/24/20 09:33 Pulse 56 12/24/20 09:33 Resp 16 12/24/20 09:33 BP 126/55 L 12/24/20 09:33 Pulse Ox 98 12/24/20 09:33 Pertinent Lab Results Pertinent Lab Results: Laboratory Tests 12/24/20 09:35 POC Glucose 121 H Airway Mallampati Class: II TM Dist: >3cm Neck ROM: Limited Assessment and Plan Assessment Anesthesia Assessment: Anesthesia Plan Discussed and Chart Reviewed Final Anesthetic Review Family History of Problems with Anesthesia: No History of Problems with Anesthesia: No NPO: Yes ASA Class: III Final Preanesthetic Review: No Changes in Pt Med Stat, Meds/Allgs Chart Reviewed, Consent Obtained/Reviewed and Anes Risks/Benef Reviewed Patient Risk: Intermediate Procedure Risk: Low Assessment/Block/Sedation in SS: Assess/Block/Sedation-SS Anesthetic Plan Anesthetic Plan: MAC:
--- NOTE | 2020-12-24 10:40 | HO.PNOPHT ---
Ophthalmology Procedure Procedure Date of Service: 12/24/20 Ophthalmology Viscoelastic: Healtree Roset Dual Pack Pro Ophthalmology Lenses: TECRAZIA [id number] (20) Procedure Notes: PREOPERATIVE DIAGNOSIS: Decreased visual acuity right eye secondary to cataract POSTOPERATIVE DIAGNOSIS: Same PROCEDURE: Right cataract extraction with intraocular lens insertion SURGEON: Clarence Duff M.D. ANESTHESIA: Topical/MAC ESTIMATED BLOOD LOSS: None COMPLICATIONS: None After obtaining informed consent, the patient was brought to the operating room suite and placed in the supine position. After adequate sedation per anesthesia, topical drops of Tetracaine were given to the right eye. The eye was then prepped and draped in the usual sterile fashion. The operating room microscope was then positioned over the operative eye and a lid speculum placed. A paracentesis was created. Viscoelastic was then instilled into the anterior chamber. A three plane incision was then created temporally, utilizing a 2.85 mm keratome. Capsulotomy forceps were then utilized to create a circular tear capsulotomy. Hydrodissection and hydrodelineation were carried out until adequate mobilization of the nucleus occurred. Phacoemulsification was then utilized to remove the dense central nucleus followed by removal of the cortical material utilizing the automated aspiration irrigation unit. Viscoelastic was instilled into the posterior capsular bag followed by placement of a posterior chamber intraocular lens without difficulty. The residual Viscoelastic was then removed utilizing the automated IA machine. The wound was checked and found to be watertight. The patient tolerated the procedure well and the lid speculum was removed. Intracameral injection of Vigamox 0.1 mL followed by a subtenon injection of Kenalog-40 0.2 mL were administered. The patient will be seen in the a.m.
[2020-12-24 11:02] VITALS: BP 120/60; PULSE 62; RESP 18; TEMP 36.4; O2SAT 99
== END 2020-12-24 11:13 | disposition home or self-care (01) ==
PROVIDERS: PCP Internal Medicine; Visit Provider Ophthalmology
PROC: (CPT 66985; principal; 2020-12-24 11:00)
DX: H25.11 Age-related nuclear cataract, right eye (principal); H54.7 Unspecified visual loss; I48.0 Paroxysmal atrial fibrillation; Z79.01 Long term (current) use of anticoagulants; E11.22 Type 2 diabetes mellitus with diabetic chronic kidney disease; I12.9 Hypertensive chronic kidney disease with stage 1 through stage 4 chronic kidney disease, or unspecified chronic kidney disease; N18.30 Chronic kidney disease, stage 3 unspecified; I25.2 Old myocardial infarction; I73.9 Peripheral vascular disease, unspecified; Z79.82 Long term (current) use of aspirin; Z79.84 Long term (current) use of oral hypoglycemic drugs; Z79.899 Other long term (current) drug therapy; Z87.891 Personal history of nicotine dependence
CPT/HCPCS: 66984; 82947; J3010; J3300; V2632

== ENCOUNTER 2021-04-19 10:46 | Outpatient (REF) | payer MEDICARE, SELFPAY ==
[2021-04-19 13:48] LABS: MANUAL DIFF FLAG NO
[2021-04-19 13:53] LABS: Estimated Average Glucose 157 mg/dL; Hemoglobin A1c % 7.1 %
[2021-04-19 14:05] LABS: Alanine Aminotransferase 19 U/L (0-40); Albumin Level 3.6 g/dL (3.5-5.0); Alkaline Phosphatase 48 U/L (39-117); Anion Gap 11 (12-20); Aspartate Amino Transferase 23 U/L (5-37); Bilirubin Total 0.6 mg/dL (0.0-1.0); Blood Urea Nitrogen 18 mg/dL (9-16); Calcium 9.4 mg/dL (8.4-10.2); Carbon Dioxide 31 mmol/L (22-29); Chloride 101 mmol/L (96-108); Cholesterol 142 mg/dL; Estimated Glomerular Filt Rate 43; Glucose Fasting 133 mg/dL (60-99); Potassium 4.6 mmol/L (3.3-5.1); Sodium 138 mmol/L (135-145)
[2021-04-19 14:06] LABS: Basophils Percent Auto 0.5 % (0-2); Eosinophils Absolute Auto 0.2 X10*3/uL (0.0-0.4); Hematocrit 40.2 % (42.0-52.0); Hemoglobin 12.8 g/dl (14.0-18.0); Imm Gran Abs Auto 0.02 X10*3/uL (0.00-0.03); Imm Gran Pct Auto 0.3 % (0.0-0.4); Lymphocytes Absolute Auto 1.7 X10*3/uL (1.2-4.9); Lymphocytes Percent Auto 22.6 % (20-40); Mean Corpuscular HGB Conc 31.8 g/dl (31.0-36.0); Mean Corpuscular Hemoglobin 28.1 pg (27.0-33.0); Mean Corpuscular Volume 88.2 fL (80.0-98.0); Monocytes Absolute Auto 0.9 X10*3/uL (0.1-1.2); Neutrophils Absolute Auto 4.6 x10*3/uL (2.0-8.3); Neutrophils Percent Auto 62.6 % (45-73); Platelet Count 197 X10*3/uL (160-400); Red Blood Count 4.56 X10*6/uL (4.60-5.80); Red Cell Distribution Width 16.3 % (11.0-16.0); White Blood Count 7.4 X10*3/uL (4.8-10.8)
[2021-04-19 14:24] LABS: Creatinine Urine 145.33 mg/dL; Microalbum/Creatinine Ratio Ur 23.3 ug/mg cr
[2021-04-19 14:25] LABS: Prostate Specific Antigen Scr 2.87 ng/mL (<0.05-4.0)
== END 2021-04-19 10:47 | disposition home or self-care (01) ==
LOC: HO.10HDL 10:46
PROVIDERS: Visit Provider Internal Medicine
DX: Z12.5 Encounter for screening for malignant neoplasm of prostate (principal); E11.9 Type 2 diabetes mellitus without complications; N18.9 Chronic kidney disease, unspecified; I48.0 Paroxysmal atrial fibrillation; E78.00 Pure hypercholesterolemia, unspecified; R35.1 Nocturia
CPT/HCPCS: 36415; 80053; 82043; 82465; 83036; 84153; 85025

== ENCOUNTER 2021-10-16 10:20 | Outpatient (REF) | payer MEDICARE, SELFPAY ==
[2021-10-16 10:56] LABS: MANUAL DIFF FLAG NO
[2021-10-16 11:46] LABS: Estimated Average Glucose 154 mg/dL
[2021-10-16 11:51] LABS: Basophils Percent Auto 0.5 % (0-2); Eosinophils Absolute Auto 0.2 X10*3/uL (0.0-0.4); Eosinophils Percent Auto 2.7 % (0-4); Hematocrit 41.1 % (42.0-52.0); Hemoglobin 13.4 g/dl (14.0-18.0); Imm Gran Abs Auto 0.03 X10*3/uL (0.00-0.03); Imm Gran Pct Auto 0.4 % (0.0-0.4); Lymphocytes Absolute Auto 1.1 X10*3/uL (1.2-4.9); Lymphocytes Percent Auto 13.8 % (20-40); Mean Corpuscular HGB Conc 32.6 g/dl (31.0-36.0); Mean Corpuscular Hemoglobin 29.6 pg (27.0-33.0); Mean Corpuscular Volume 90.9 fL (80.0-98.0); Monocytes Absolute Auto 0.7 X10*3/uL (0.1-1.2); Monocytes Percent Auto 9.4 % (2-11); Neutrophils Absolute Auto 5.7 x10*3/uL (2.0-8.3); Neutrophils Percent Auto 73.2 % (45-73); Platelet Count 192 X10*3/uL (160-400); Red Blood Count 4.52 X10*6/uL (4.60-5.80); Red Cell Distribution Width 15.5 % (11.0-16.0); White Blood Count 7.8 X10*3/uL (4.8-10.8)
[2021-10-16 12:20] LABS: Alanine Aminotransferase 17 U/L (0-40); Albumin Level 3.7 g/dL (3.5-5.0); Alkaline Phosphatase 64 U/L (39-117); Anion Gap 13 (12-20); Aspartate Amino Transferase 23 U/L (5-37); Bilirubin Total 0.6 mg/dL (0.0-1.0); Blood Urea Nitrogen 21 mg/dL (9-16); Calcium 9.2 mg/dL (8.4-10.2); Carbon Dioxide 26 mmol/L (22-29); Chloride 103 mmol/L (96-108); Cholesterol 130 mg/dL; Estimated Glomerular Filt Rate 40; Glucose Fasting 231 mg/dL (60-99); HDL Cholesterol 33 mg/dL; LDL Cholesterol Calculated 69 mg/dl; Potassium 4.6 mmol/L (3.3-5.1); Sodium 137 mmol/L (135-145); Total Protein 7.1 g/dL (6.5-8.0); Triglycerides 140 mg/dL
[2021-10-16 12:42] LABS: Prostate Specific Antigen 3.21 ng/mL (<0.05-4.0)
[2021-10-16 13:43] LABS: Creatinine Urine 221.53 mg/dL; Microalbum/Creatinine Ratio Ur 28.4 ug/mg cr
== END 2021-10-16 10:21 | disposition home or self-care (01) ==
LOC: HO.LAB 10:20
PROVIDERS: Absent Provider Nurse Practitioner Family; PCP Internal Medicine; Visit Provider Internal Medicine
DX: E11.22 Type 2 diabetes mellitus with diabetic chronic kidney disease (principal); I12.9 Hypertensive chronic kidney disease with stage 1 through stage 4 chronic kidney disease, or unspecified chronic kidney disease; I25.10 Atherosclerotic heart disease of native coronary artery without angina pectoris; N18.9 Chronic kidney disease, unspecified; I48.0 Paroxysmal atrial fibrillation; R35.1 Nocturia; Z12.5 Encounter for screening for malignant neoplasm of prostate
CPT/HCPCS: 36415; 80053; 80061; 82043; 83036; 84153; 85025

== ENCOUNTER 2022-06-27 07:52 | Outpatient (REF) | payer MEDICARE, SELFPAY ==
[2022-06-27 08:13] LABS: MANUAL DIFF FLAG NO
[2022-06-27 08:43] LABS: Basophils Absolute Auto 0.1 X10*3/uL (0.0-0.2); Basophils Percent Auto 0.7 % (0-2); Eosinophils Absolute Auto 0.1 X10*3/uL (0.0-0.4); Eosinophils Percent Auto 1.5 % (0-4); Hematocrit 45.5 % (42.0-52.0); Hemoglobin 15.1 g/dl (14.0-18.0); Imm Gran Abs Auto 0.03 X10*3/uL (0.00-0.03); Imm Gran Pct Auto 0.4 % (0.0-0.4); Lymphocytes Absolute Auto 1.9 X10*3/uL (1.2-4.9); Mean Corpuscular HGB Conc 33.2 g/dl (31.0-36.0); Mean Corpuscular Hemoglobin 30.6 pg (27.0-33.0); Mean Corpuscular Volume 92.3 fL (80.0-98.0); Mean Platelet Volume 10.9 fL (9.4-12.4); Monocytes Absolute Auto 0.9 X10*3/uL (0.1-1.2); Monocytes Percent Auto 11.8 % (2-11); Neutrophils Absolute Auto 4.5 x10*3/uL (2.0-8.3); Neutrophils Percent Auto 60.6 % (45-73); Platelet Count 167 X10*3/uL (160-400); Red Blood Count 4.93 X10*6/uL (4.60-5.80); Red Cell Distribution Width 15.2 % (11.0-16.0); White Blood Count 7.5 X10*3/uL (4.8-10.8)
[2022-06-27 08:55] LABS: Estimated Average Glucose 192 mg/dL; Hemoglobin A1c % 8.3 %
[2022-06-27 09:24] LABS: Alanine Aminotransferase 20 U/L (0-40); Albumin Level 3.6 g/dL (3.5-5.0); Alkaline Phosphatase 67 U/L (39-117); Anion Gap 16 (12-20); Aspartate Amino Transferase 21 U/L (5-37); Bilirubin Total 0.8 mg/dL (0.0-1.0); Blood Urea Nitrogen 32 mg/dL (9-16); Calcium 9.3 mg/dL (8.4-10.2); Carbon Dioxide 27 mmol/L (22-29); Chloride 101 mmol/L (96-108); Estimated Glomerular Filt Rate 45; Glucose Random 169 mg/dL (60-115); Potassium 4.4 mmol/L (3.3-5.1); Sodium 140 mmol/L (135-145); Total Protein 6.8 g/dL (6.5-8.0)
== END 2022-06-27 07:53 | disposition home or self-care (01) ==
LOC: HO.LAB 07:52
PROVIDERS: PCP Internal Medicine; Visit Provider Internal Medicine
DX: I25.10 Atherosclerotic heart disease of native coronary artery without angina pectoris (principal); I12.9 Hypertensive chronic kidney disease with stage 1 through stage 4 chronic kidney disease, or unspecified chronic kidney disease; E11.22 Type 2 diabetes mellitus with diabetic chronic kidney disease; N18.9 Chronic kidney disease, unspecified; E78.00 Pure hypercholesterolemia, unspecified
CPT/HCPCS: 36415; 80053; 83036; 85025

== ENCOUNTER 2022-12-31 11:32 | Outpatient (REF) | payer MEDICARE, SELFPAY ==
[2022-12-31 13:15] LABS: Estimated Average Glucose 157 mg/dL; Hemoglobin A1c % 7.1 % (<6.0)
[2022-12-31 13:16] LABS: Anion Gap 15 (12-20); Blood Urea Nitrogen 19 mg/dL (9-16); Calcium 10.4 mg/dL (8.4-10.2); Carbon Dioxide 28 mmol/L (22-29); Chloride 98 mmol/L (96-108); Estimated Glomerular Filt Rate 53; Glucose Random 185 mg/dL (60-115); Potassium 3.8 mmol/L (3.3-5.1); Sodium 137 mmol/L (135-145)
== END 2022-12-31 11:33 | disposition home or self-care (01) ==
LOC: HO.LAB 11:32
PROVIDERS: PCP Internal Medicine; Visit Provider Internal Medicine
DX: E11.22 Type 2 diabetes mellitus with diabetic chronic kidney disease (principal); N18.9 Chronic kidney disease, unspecified; I48.91 Unspecified atrial fibrillation
CPT/HCPCS: 36415; 80048; 83036

== ENCOUNTER 2023-07-17 12:14 | Inpatient (IN) | payer OTHER, SELFPAY ==
[2023-07-17] VITALS (7 sets, daily range): BP systolic 113–168; BP diastolic 68–95; PULSE 73–133; RESP 16–19; TEMP 36.1–37; O2SAT 93–98; BMI 25.7
--- NOTE | ~2023-07-17 | CT_ITS ---
EXAMINATION: CT ABDOMEN AND PELVIS WITH CONTRAST CLINICAL INFORMATION: Right lower abdominal pain. Decreased appetite. COMPARISON: Previous CT of the abdomen and pelvis October 2020 and renal ultrasound October 2020. TECHNIQUE: Multidetector volumetric images were obtained from the superior aspect of the liver through the pubic symphysis following administration 85 mL of Omnipaque 350 intravenous contrast. Sagittal and coronal reformatted images were obtained on the technologist's workstation. Oral contrast: Yes This CT examination was performed using dose optimization techniques as appropriate, variously including the following: *Automated exposure control *Adjustment of mA and/or kV according to patient size (this includes techniques or standardized protocols for targeted exams where dose is matched to indication/reason for exam; i.e. extremities or head) *Use of iterative reconstruction technique DLP: 903 mGy-cm. FINDINGS: LUNG BASES: Enlarged heart and coronary artery calcification. Increased reticular markings at the lung bases. LIVER, GALLBLADDER, AND BILIARY TREE: Mild fatty infiltration of the liver. The gallbladder has been removed. PANCREAS: Unremarkable. SPLEEN: Unremarkable. ADRENAL GLANDS: Unremarkable. KIDNEYS AND URETERS: The kidneys are normal in size, shape, and attenuation. No hydronephrosis, hydroureter, or calculi seen. No perinephric stranding. Bilateral renal cysts. No imaging follow-up recommended. BLADDER: Unremarkable. GASTROINTESTINAL TRACT: Diverticulosis. Constipation. Small bowel is normal. Appendix is not seen. There is high attenuation seen in the proximal stomach. This may represent something the patient has ingested. It is difficult to exclude GI bleeding. Clinical correlation recommended. ABDOMINAL WALL: No significant hernia is appreciated. LYMPH NODES: Normal. VASCULAR: Severe atherosclerotic disease. No aneurysm. PELVIC VISCERA: Slightly enlarged prostate gland. OSSEOUS STRUCTURES: Degenerative changes of the spine. CT/CT abdomen pelvis w IV con IMPRESSION: Constipation and diverticulosis. High attenuation in the proximal stomach. It is uncertain whether this represents something the patient has recently ingested. Cannot exclude evidence of GI bleeding. Clinical correlation recommended. Severe atherosclerotic disease. Enlarged prostate gland. Fleischner guidelines were followed.
--- NOTE | ~2023-07-17 | XR_ITS ---
EXAMINATION: XR CHEST CLINICAL INFORMATION: Shortness of breath, weakness COMPARISON: Chest x-ray on 11/07/2020 TECHNIQUE: 2 views of the chest were obtained. FINDINGS: vascularity. LUNGS: Lungs are markedly hypoinflated. No focal airspace disease could be found. No pneumothorax is seen. BONES: Bony skeleton is intact. Median sternotomy wire loops and mediastinal surgical clips are seen. XR/XR chest 2V IMPRESSION: 1. Unchanged Mild cardiomegaly without radiographic signs of congestive heart failure. 2. Unchanged Markedly hypoinflated lungs. 3. No focal airspace disease could be found. 4. Unchanged coronary artery disease, status post coronary artery bypass graft.
--- NOTE | ~2023-07-17 | CT_ITS ---
EXAMINATION: CT HEAD WITHOUT CONTRAST CT CERVICAL SPINE WITHOUT CONTRAST CLINICAL INFORMATION: Fall. Pain. Injury. COMPARISON: CT head October 10, 2020 TECHNIQUE: Imaging was performed from the skull base to vertex without intravenous administration of contrast. In addition, helical noncontrast CT imaging was acquired through the cervical spine and source images were reviewed along with axial reconstructions and sagittal and coronal MPRs. [This CT examination was performed using dose optimization techniques as appropriate, variously including the following: *Automated exposure control *Adjustment of mA and/or kV according to patient size (this includes techniques or standardized protocols for targeted exams where dose is matched to indication/reason for exam; i.e. extremities or head) *Use of iterative reconstruction technique] DLP: 883 mGy-cm FINDINGS: HEAD: No intracranial mass, hemorrhage, or midline shift is visualized. There is generalized global volume loss. There is moderate prominence of the ventricles and the sulci . There is mild hypodensity of the periventricular white matter due to chronic small vessel ischemic disease. There are vascular calcifications of the internal carotid arteries bilaterally. No extra-axial collections are identified. The paranasal sinuses and mastoid air cells are well aerated. CERVICAL SPINE: There is no evidence of acute cervical spine fracture. Vertebral bodies remain normal in height. Cervical vertebrae have normal alignment. There is advanced multilevel degenerative spondylosis of the cervical spine with disc height narrowing and endplate spurs and facet joint arthrosis No prevertebral soft tissue swelling. There are carotid artery calcifications in the neck bilaterally. Limited assessment of the lung apices is unremarkable. CT/CT cervical spine wo IV con IMPRESSION: 1. No acute intracranial pathology. 2. No CT evidence of acute cervical spine fracture or traumatic subluxation
--- NOTE | 2023-07-17 13:07 | ED_ITS ---
HPI - General Adult General Chief complaint: Fall Stated complaint[facility], trouble walking Time Seen by Provider: 07/17/23 15:00 Source: patient Mode of arrival: ambulatory History of Present Illness HPI narrative: 83-year-old male who is brought in by his family after being referred from the [facility] for increasing leg weakness with multiple falls over the past 2 months, patient use to drive and has progressively had to use 1st a cane and then a walker, family reports he fell on Thursday and is taking chronic anticoagulation. They also note that patient has had increasing shortness of breath and reports he had shingles 1 month ago. Related Data Home Medications ?Medication ?Instructions ?Recorded ?Confirmed aspirin 81 mg chewable tablet 81 mg PO BEDTIME 11/07/20 12/10/20 (Aspirin Childrens) ezetimibe 10 mg tablet 10 mg PO BEDTIME 11/07/20 12/04/20 metformin 500 mg tablet 500 mg PO BID 11/07/20 12/04/20 metoprolol succinate 25 mg 25 mg PO DAILY 11/07/20 12/10/20 tablet,extended release 24 hr nitroglycerin 0.4 mg sublingual 0.4 mg sublingual Q5M PRN Chest 11/07/20 12/04/20 tablet Pain omeprazole 20 mg capsule,delayed 20 mg PO BID@0630,1630 11/07/20 12/10/20 release rivaroxaban 15 mg tablet (Xarelto) 15 mg PO QPM 11/07/20 12/10/20 rosuvastatin 40 mg tablet 40 mg PO BEDTIME 11/07/20 12/04/20 valsartan 40 mg tablet 40 mg PO BEDTIME 11/07/20 12/04/20 vit C 250 mg-vit E 90 mg-zinc 40 1 tab PO BID 11/07/20 12/04/20 mg-copper 1 [id number] capsule (PreserVision AREDS-2) Allergies Allergy/AdvReac Type Severity Reaction Status Date / Time adhesive tape [ADHESIVE TAPE] Allergy Intermediate BLISTERS Verified 07/17/23 13:08 doxycycline Allergy Vomiting Verified 07/17/23 13:08 Review of Systems 2 Review of Systems: Pertinent positives and negatives as stated in HPI PMFSH Past Medical History Source: nursing notes reviewed Medical History COVID-19 vaccine series completed Myocardial infarction HTN (hypertension) ALTAGRACIA (obstructive sleep apnea) On anticoagulant therapy On beta audrey at home Paroxysmal A-fib CAD (coronary artery disease) Stage 3 chronic kidney disease High cholesterol GERD (gastroesophageal reflux disease) Diabetes Lyme disease Cataracts, both eyes Surgical History History of cataract extraction History of appendectomy History of esophagogastroduodenoscopy (EGD) Hx of colonoscopy History of left inguinal hernia repair History of right inguinal hernia repair Hx of cholecystectomy S/P triple vessel bypass Social History Social History Are you a primary special needs child caregiver to a significant other at home: No Do you presently have visiting nurse or other home services: No Alcohol intake: never Patient Tobacco Use Status: Former Tobacco user Quit Date: 40+ yrs ago Tobacco use type: Cigarette Second Hand Smoke Exposure: No Advance Directives: No Advance Directives Information Provided: Yes service: Yes Current occupational status: retired Physical Exam ED Vital Signs: Vital Signs - 24 hr 07/17/23 13:06 07/17/23 14:43 Temperature 98.6 F Pulse Rate 114 H 99 Respiratory Rate 16 16 Blood Pressure 123/70 113/68 Pulse Oximetry 94 93 Oxygen Delivery Method Room Air Room Air BMI result Body Mass Index 25.7 VITAL SIGNS: Reviewed. GENERAL: Cachectic, in no acute distress. HEAD: Normocephalic/atraumatic EYES: PERRLA, EOMI EARS: Ext canals without abnormality NOSE: Nares patent bilateral OROPHARYNX: no oral lesions noted, posterior pharynx clear NECK: Supple, no adenopathy LUNGS: Good inspiratory effort, patient sounds somewhat decreased bilateral but no tachypnea. SpO2<94> CARDIOVASCULAR: Regular rate and rhythm without noted murmurs, no JVD or lower extremity edema. ABDOMEN: Soft, tenderness to palpation, non-distended with bowel sounds. MUSCULOSKELETAL: No tenderness, deformities, or effusions noted on gross inspection. EXTREMITIES: No cyanosis, clubbing or edema. SKIN: Inspection of the skin reveals no rashes NEUROLOGIC: Alert and oriented x 4. Strength and sensation to light touch were grossly intact x 4. Course Course Course Narrative: RME performed by Joleen Arguello PA-C. Patient is an 83 year old assigned male at presenting to the emergency department with weakness and increased falling. Detailed physical exam and review of systems are deferred to the home health clinician. Labs, imaging, and swabs ordered. Patient placed back in the waiting room pending room availability and results. Medical Decision Making Medical Decision Making MDM Narrative: 83-year-old male with multiple medical comorbidities, DDX: Progressive loss of appetite and corresponding development of weakness, history consistent with significant vascular disease and no findings to suggest acute limb ischemia as etiology for patient's symptoms. I reviewed all investigations and hematologic indices are negative for leukocytosis/anemia inpatient demonstrates a stable borderline platelet count. Coagulation studies within normal limits. Chemistry indices negative for GABRIELA or electrolyte/liver enzyme derangements. Troponins are flat but mildly elevated in the 40s without associated chest pain. Viral testing negative for influenza/RSV/COVID-19. CT scan of the head negative for intracranial hemorrhage or mass effect and cervical spine without evidence of fracture or subluxation. Chest x-ray not indicative of any infiltrate or venous congestion. Signed out to Dr Tran - f/u CT scan abd/pelvis and UA - Dispo to CM/PT if no medical admission Differential Diagnosis Differential Diagnoses: The differential diagnosis associated with the presentation includes Please see the discussion above Admission/Observation Consideration of admission/observation: Escalation of care including admission/observation considered Please see the discussion above Consult Healthcare Provider Management of the patient was discussed with: Precision Machine Operator Please see the discussion above Lab Data MDM Lab Attestation statement: I reviewed the patient's lab results. Please see the discussion above 07/17/23 13:40 07/17/23 13:40 Labs: Lab Results 07/17/23 07/17/23 Range/Units 13:40 14:52 WBC 8.9 (4.8-10.8) X10*3/uL RBC 5.55 (4.60-5.80) X10*6/uL Hgb 17.0 (14.0-18.0) g/dl Hct 50.8 (42.0-52.0) % MCV 91.5 (80.0-98.0) fL MCH 30.6 (27.0-33.0) pg MCHC 33.5 (31.0-36.0) g/dl RDW 13.1 (11.0-16.0) % Plt Count 150 L (160-400) X10*3/uL MPV 10.9 (9.4-12.4) fL Immature Gran % (Auto) 0.3 (0.0-0.4) % Neut % (Auto) 76.0 H (45-73) % Lymph % (Auto) 13.1 L (20-40) % Catron % (Auto) 10.3 (2-11) % Eos % (Auto) 0.1 (0-4) % Baso % (Auto) 0.2 (0-2) % Lymph # (Auto) 1.2 (1.2-4.9) X10*3/uL Catron # (Auto) 0.9 (0.1-1.2) X10*3/uL Eos # (Auto) 0.0 (0.0-0.4) X10*3/uL Baso # (Auto) 0.0 (0.0-0.2) X10*3/uL Abs Immat Gran (auto) 0.03 (0.00-0.03) X10*3/uL Absolute Neuts (auto) 6.8 (2.0-8.3) x10*3/uL Absolute Nucleated RBC 0.000 (0.0-0.012) X10*3/uL Nucleated RBC % (auto) 0.0 (0.0-0.2) /100WBC PT 12.4 (11.1-13.3) SEC INR 1.0 (0.9-1.1) APTT 32.8 (26.0-36.8) SEC Sodium 139 (135-145) mmol/L Potassium 4.4 (3.3-5.1) mmol/L Chloride 95 L (96-108) mmol/L Carbon Dioxide 36 H (22-29) mmol/L Anion Gap 12 (12-20) BUN 23 H (9-16) mg/dL Creatinine 0.97 (0.5-1.4) mg/dL Estim Creat Clear Calc 47.4 Estimated GFR > 60 Random Glucose 219 H (60-115) mg/dL Calcium 10.4 H (8.4-10.2) mg/dL Magnesium 2.1 (1.6-2.6) mg/dL Total Bilirubin 0.6 (0.0-1.0) mg/dL AST 27 (5-37) U/L ALT 24 (0-40) U/L Alkaline Phosphatase 63 (39-117) U/L Troponin I High Sens 42.6 H 41.9 H (<3.5-35.0) ng/L Total Protein 7.7 (6.5-8.0) g/dL Albumin 3.9 (3.5-5.0) g/dL Influenza Type A (PCR) NEGATIVE (Negative) Influenza Type B (PCR) NEGATIVE (Negative) RSV RNA Qual (PCR) NEGATIVE (Negative) SARS-CoV-2 RNA (RT-PCR) NEGATIVE (Negative) Independent Interpretation I performed an independent interpretation of an: EKG Interpretation: Sinus tachycardia with PACs, HR-112, no STEMI, OR/QRS/QTC is within normal limits. Radiology Impression Discussion of test interpretation with radiology: I have reviewed the radiologist's reading. Radiologist Impression: Please see the discussions above External Record Review External record reviewed: Outpatient record and Prior outpatient labs Chronic Conditions Patient?s care impacted by: Diabetes Paroxysmal atrial fibrillation, chronic anticoagulation Critical Care Time Critical Care Time Critical Care Time: Yes Total Critical Care Time: 60 Attestation: I personally attest to this time spent taking care of the patient. Discharge Plan Discharge Clinical Impression: Physical deconditioning, Loss of appetite Patient Disposition: Still a Patient Prescriptions: No Action PreserVision AREDS-2 250-90-40-1 mg Capsule 1 tab PO BID Xarelto 15 mg Tablet 15 mg PO QPM valsartan 40 mg Tablet 40 mg PO BEDTIME omeprazole 20 mg Capsule,Delayed Release(Dr/Ec) 20 mg PO BID@0630,1630 metoprolol succinate 25 mg Tablet Extended Release 24 Hr 25 mg PO DAILY rosuvastatin 40 mg Tablet 40 mg PO BEDTIME metformin 500 mg Tablet 500 mg PO BID aspirin [Aspirin Childrens] 81 mg Tablet,Chewable 81 mg PO BEDTIME ezetimibe 10 mg Tablet 10 mg PO BEDTIME nitroglycerin 0.4 mg Tablet, Sublingual 0.4 mg SUBLINGUAL Q5M PRN (Reason: Chest Pain) Print Language: Macedonian
--- NOTE | 2023-07-17 13:08 | ECG_ITS ---
Test Reason : fall/dyspnea Blood Pressure : / mmHG Vent. Rate : 112 BPM Atrial Rate : 113 BPM P-R Int : 202 ms QRS Dur : 078 ms QT Int : 346 ms P-R-T Axes : 053 012 100 degrees QTc Int : 472 ms Poor data quality Sinus tachycardia with Premature atrial complexes Cannot rule out Inferior infarct (cited on or before 25-JUL-2004) Abnormal ECG When compared with ECG of 07-NOV-2020 12:01, No significant change was found Referred By: Joleen Arguello Electronically Signed By:RUPINDER ROSARIO MD
[2023-07-17 13:46] LABS: MANUAL DIFF FLAG NO
[2023-07-17 13:48] LABS: Basophils Percent Auto 0.2 % (0-2); Eosinophils Percent Auto 0.1 % (0-4); Hematocrit 50.8 % (42.0-52.0); Imm Gran Abs Auto 0.03 X10*3/uL (0.00-0.03); Imm Gran Pct Auto 0.3 % (0.0-0.4); Lymphocytes Absolute Auto 1.2 X10*3/uL (1.2-4.9); Lymphocytes Percent Auto 13.1 % (20-40); Mean Corpuscular HGB Conc 33.5 g/dl (31.0-36.0); Mean Corpuscular Hemoglobin 30.6 pg (27.0-33.0); Mean Corpuscular Volume 91.5 fL (80.0-98.0); Mean Platelet Volume 10.9 fL (9.4-12.4); Monocytes Absolute Auto 0.9 X10*3/uL (0.1-1.2); Monocytes Percent Auto 10.3 % (2-11); Neutrophils Absolute Auto 6.8 x10*3/uL (2.0-8.3); Platelet Count 150 X10*3/uL (160-400); Red Blood Count 5.55 X10*6/uL (4.60-5.80); Red Cell Distribution Width 13.1 % (11.0-16.0); White Blood Count 8.9 X10*3/uL (4.8-10.8)
[2023-07-17 13:54] LABS: Prothrombin Time 12.4 SEC (11.1-13.3)
[2023-07-17 13:57] LABS: Partial Thromboplastin Time 32.8 SEC (26.0-36.8)
[2023-07-17 14:03] LABS: Alanine Aminotransferase 24 U/L (0-40); Albumin Level 3.9 g/dL (3.5-5.0); Alkaline Phosphatase 63 U/L (39-117); Anion Gap 12 (12-20); Aspartate Amino Transferase 27 U/L (5-37); Bilirubin Total 0.6 mg/dL (0.0-1.0); Blood Urea Nitrogen 23 mg/dL (9-16); Calcium 10.4 mg/dL (8.4-10.2); Carbon Dioxide 36 mmol/L (22-29); Chloride 95 mmol/L (96-108); Creatinine Clr Calc Pharmacy 47.4; Estimated Glomerular Filt Rate > 60; Glucose Random 219 mg/dL (60-115); Magnesium 2.1 mg/dL (1.6-2.6); Potassium 4.4 mmol/L (3.3-5.1); Sodium 139 mmol/L (135-145); Total Protein 7.7 g/dL (6.5-8.0)
[2023-07-17 14:12] LABS: Troponin-I High Sensitivity 42.6 ng/L (<3.5-35.0)
[2023-07-17 14:23] LABS: Influenza A PCR NEGATIVE (Negative); Influenza B PCR NEGATIVE (Negative); Resp Syncy Virus RNA Qual PCR NEGATIVE (Negative); SARS COV2 PCR INHOUSE NEGATIVE (Negative)
[2023-07-17 15:16] LABS: Troponin-I High Sensitivity 41.9 ng/L (<3.5-35.0)
[2023-07-17] MEDS: 0.9 % Sodium Chloride 500 ML 999 ML IV (16:59)
[2023-07-17 17:11] LABS: B Type Natriuretic Peptide 120 pg/mL (<100)
[2023-07-17] MEDS: iohexoL 350 MG/ML 100 ML INFUS..BTL IV (17:20)
--- NOTE | 2023-07-17 18:04 | ECG_ITS ---
Test Reason : AFIB Blood Pressure : / mmHG Vent. Rate : 111 BPM Atrial Rate : 000 BPM P-R Int : 000 ms QRS Dur : 080 ms QT Int : 350 ms P-R-T Axes : 000 003 006 degrees QTc Int : 476 ms Atrial fibrillation with rapid ventricular response with premature ventricular or aberrantly conducted complexes Possible Inferior infarct (cited on or before 25-JUL-2004) Abnormal ECG When compared with ECG of 17-JUL-2023 13:25, Atrial fibrillation has replaced Sinus rhythm Non-specific change in ST segment in Lateral leads Referred By: Zion Tran Electronically Signed By:RUPINDER ROSARIO MD
--- NOTE | 2023-07-17 18:29 | PC.NURSE ---
Patient awake and alert. skin flush, warm, dry. resp even and labored. patient O2 sat decreased to 82% while moving around in bed to get urine sample. supplemental O2 initiated provider aware and order placed. afib via tele. physician at bedside .
[2023-07-17 18:34] LABS: Appearance Urine Clear; Color Urine Dark Yellow; Glucose Urine UA Negative (Negative); Leukocyte Esterase Urine Negative (Negative); Nitrite Urine Negative (Negative); PH 5.5 (5.0-9.0); Specific Gravity - Urine >= 1.030 (1.005-1.025); UMIC TRIGGER UACC YES; Urine Blood Negative (Negative); Urine Ketones Trace mg/dL (Negative); Urine Protein 100 (2+) mg/dL (Neg-Trace)
[2023-07-17] MEDS: Metoprolol Tartrate 5 MG/5 ML VIAL IVPUSH (18:37)
[2023-07-17 18:46] LABS: Bacteria Urine None Seen (None Seen); RBC Urine 0-2 /HPF (0-2); Squamous Epithelial Cell Urine 0-2 /HPF (0-2); WBC Urine 0-5 /HPF (0-5)
--- NOTE | 2023-07-17 19:29 | PC.NURSE ---
I assumed care of the pt at 1900. Pt resting in bed comfortably with family at the bedside. Pt has no complaints at this time. [facility] is currently placing a [place] cath on the pt to collect a urine sample. Pt is too weak to use a urinal properly.
--- NOTE | 2023-07-17 19:30 | MHC.EDTECH ---
@ [phone] [place] cath applied to patient due to unable to stand or walk for the bathroom or urinal.
--- NOTE | 2023-07-17 19:35 | PHA.MEDREC ---
Pharmacy Consult ? Medication Reconciliation Pharmacy has completed the medication reconciliation. List from [facility]
--- NOTE | 2023-07-17 21:13 | PC.NURSE ---
Attempted to ambulate pt, pt was unable to bear his own weight or take steps forward. aware. CM and hospitalist at bedside
--- NOTE | 2023-07-17 21:13 | MHC.EDTECH ---
@21:10 Per Doctor order, this tech and RN tried to do a walking trial with patient. Unable to touch R arm due to rotator cuff injury. Patient was unable to bare wait, stated It's too hard, I'm not able to take a step . This tech and RN helped patient back into bed and boosted him. Patient is comfortable at this time.
--- NOTE | 2023-07-17 23:16 | P.HPHOSP_ITS ---
History of Present Illness Date of Service: 07/17/23 Attending physician on admission: Mauricio Lubin Chief Complaint: Shortness on breath Terrance Law is a very pleasant 83 years old man with past medical history significant for paroxysmal AFib warfarin (no known rate control agents), CAD s/p CABG and hyperlipidemia presents to the emergency department due to generalized weakness, multiple falls for the last 2 months, palpitations and shortness on breath at rest and also on exertion. He also reports chest tightness. These symptoms had been getting worse over the last several days. He has been using a walker for ambulation. HPI was mostly provided by patient's daughter who was at bedside. He sustained a fall on Thursday. He has no appetite and has not been eating well lately. In the ED, he was found to have significant tachycardia as consistent with rapid AFib. There is no fever or hypotension. His oxygen saturation is normal on room air. He was started on supplemental oxygen via nasal cannula. Blood workup showed no leukocytosis. Hemoglobin is normal platelet. Platelets level is 150. Troponin is 42.6 --> 41.9. BNP is slightly elevated. LFTs are normal, CO2 is elevated and chloride is low. Creatinine 0.97 (it was 1.29 on December 2022). CXR showed mild cardiomegaly without radiographic signs of CHF. Head and C-spine scans showed no acute pathology. Abdomen and pelvis CT scan showed finding consistent with constipation and diverticulosis. It showed high attenuation in the proximal stoma which is uncertain whether this represents something the patient has recently ingested. Cannot exclude evidence of GI bleeding. It also showed reticular markings at the lower bases. ECG is consistent with rapid atrial fibrillation. ED tx: NS 500 mL bolus, IV contrast, metoprolol 5 mg IV. Patient is now normal sinus rhythm. Review of Systems 2 Review of Systems: Limited. [facility] Medical History COVID-19 vaccine series completed Myocardial infarction HTN (hypertension) ALTAGRACIA (obstructive sleep apnea) On anticoagulant therapy On beta audrey at home Paroxysmal A-fib CAD (coronary artery disease) Stage 3 chronic kidney disease High cholesterol GERD (gastroesophageal reflux disease) Diabetes Lyme disease Cataracts, both eyes Surgical History History of cataract extraction History of appendectomy History of esophagogastroduodenoscopy (EGD) Hx of colonoscopy History of left inguinal hernia repair History of right inguinal hernia repair Hx of cholecystectomy S/P triple vessel bypass Social History Are you a primary care tech to a significant other at home: No Do you presently have visiting nurse or other home services: No Alcohol intake: never Patient Tobacco Use Status: Former Tobacco user Quit Date: 40+ yrs ago Tobacco use type: Cigarette Second Hand Smoke Exposure: No Advance Directives: No Advance Directives Information Provided: Yes service: Yes Current occupational status: retired Meds Allergies Allergy/AdvReac Type Severity Reaction Status Date / Time adhesive tape [ADHESIVE TAPE] Allergy Intermediate BLISTERS Verified 07/17/23 13:08 doxycycline Allergy Vomiting Verified 07/17/23 13:08 Active Medications: Current Medications Acetaminophen (Acetaminophen 325 Mg Tablet) 650 mg PO Q6H PRN PRN Reason: mild pain, headache or fever Sodium Chloride (0.9 % Sodium Chloride Flush 3 Ml Syringe) [facility] Medications ?Medication ?Instructions ?Recorded ?Confirmed ?Last Taken ?Type aspirin 81 mg chewable tablet 81 mg PO BEDTIME 11/07/20 07/17/23 12/09/20 History (Aspirin Childrens) nitroglycerin 0.4 mg sublingual 0.4 mg sublingual Q5M PRN Chest 11/07/20 07/17/23 Unknown History tablet Pain omeprazole 20 mg capsule,delayed 40 mg PO DAILY@0630 11/07/20 07/17/23 12/24/20 History release rivaroxaban 15 mg tablet (Xarelto) 15 mg PO DAILY@1630 11/07/20 07/17/23 12/09/20 History rosuvastatin 40 mg tablet 40 mg PO BEDTIME 11/07/20 07/17/23 Unknown History vit C 250 mg-vit E 90 mg-zinc 40 1 tab PO BID 11/07/20 07/17/23 12/24/20 History mg-copper 1 [id number] capsule (PreserVision AREDS-2) cyanocobalamin (vitamin B-12) 500 500 mcg PO DAILY 07/17/23 07/17/23 Unknown History mcg tablet memantine 5 mg tablet 5 mg PO DAILY 07/17/23 07/17/23 Unknown History Physical Exam 2 Vital Signs and Narrative: Vital Signs: Last Vital Signs Temp 97.4 F 07/17/23 20:06 Pulse 73 07/17/23 20:06 Resp 19 07/17/23 20:06 BP 134/71 07/17/23 20:06 Pulse Ox 95 07/17/23 20:06 O2 Del Method Nasal Cannula 07/17/23 20:06 O2 Flow Rate 2 07/17/23 20:06 BMI result Body Mass Index 25.7 Constitutional - Awake and Alert, No apparent distress. Chronically ill. Pleasant. Cooperative. Nasal cannula in place. HEENT - Pupils equally round. Heart - RRR. Lungs - Normal lung expansion, Normal respiratory effort, No respiratory distress. No tachypnea. Minimal crackles at bases. No rhonchi. No wheezing. Abdomen - NT / ND; +BS; No rebound or guarding Extremities - no calf tenderness bilaterally, no swelling Musculoskeletal - Right shoulder limited ROM. Skin - Warm/Dry Neurological - Alert & oriented x3. Generalized weakness. Normal speech. Follows simple commands Psychological - Depressed affect Results Labs 07/17/23 13:40 07/17/23 13:40 Labs: Laboratory Results - last 24 hr 07/17/23 07/17/23 07/17/23 13:40 14:52 18:22 MCV 91.5 MCH 30.6 MCHC 33.5 RDW 13.1 Plt Count 150 L MPV 10.9 Immature Gran % (Auto) 0.3 Neut % (Auto) 76.0 H Lymph % (Auto) 13.1 L [place] % (Auto) 10.3 Eos % (Auto) 0.1 Baso % (Auto) 0.2 Lymph # (Auto) 1.2 [place] # (Auto) 0.9 Eos # (Auto) 0.0 Baso # (Auto) 0.0 Abs Immat Gran (auto) 0.03 Absolute Neuts (auto) 6.8 Absolute Nucleated RBC 0.000 Nucleated RBC % (auto) 0.0 PT 12.4 INR 1.0 APTT 32.8 Anion Gap 12 Estim Creat Clear Calc 47.4 Estimated GFR > 60 Random Glucose 219 H Calcium 10.4 H Magnesium 2.1 Total Bilirubin 0.6 AST 27 ALT 24 Alkaline Phosphatase 63 Troponin I High Sens 42.6 H 41.9 H B-Natriuretic Peptide 120 H Total Protein 7.7 Albumin 3.9 Urine Color Dark Yellow Urine Appearance Clear Urine pH 5.5 Ur Specific Mcfall >= 1.030 H Urine Protein 100 (2+) H Urine Glucose (UA) Negative Urine Ketones Trace Urine Blood Negative Urine Nitrite Negative Ur Leukocyte Esterase Negative Urine RBC 0-2 Urine WBC 0-5 Ur Squamous Epith Cells 0-2 Urine Bacteria None Seen Hyaline Casts 6-10 Influenza Type A (PCR) NEGATIVE Influenza Type B (PCR) NEGATIVE RSV RNA Qual (PCR) NEGATIVE SARS-CoV-2 RNA (RT-PCR) NEGATIVE Imaging Radiologist's Impressions: Impressions Chest X-Ray 07/17/23 14:00 IMPRESSION: 1. Unchanged Mild cardiomegaly without radiographic signs of congestive heart failure. 2. Unchanged Markedly hypoinflated lungs. 3. No focal airspace disease could be found. 4. Unchanged coronary artery disease, status post coronary artery bypass graft. Cervical Spine CT 07/17/23 14:32 IMPRESSION: 1. No acute intracranial pathology. 2. No CT evidence of acute cervical spine fracture or traumatic subluxation Head CT 07/17/23 14:32 IMPRESSION: 1. No acute intracranial pathology. 2. No CT evidence of acute cervical spine fracture or traumatic subluxation Abdomen/Pelvis CT 07/17/23 17:31 IMPRESSION: Constipation and diverticulosis. High attenuation in the proximal stomach. It is uncertain whether this represents something the patient has recently ingested. Cannot exclude evidence of GI bleeding. Clinical correlation recommended. Severe atherosclerotic disease. Enlarged prostate gland. Fleischner guidelines were followed. Assessment and Plan (1) Physical deconditioning: Status: Acute (2) CAD (coronary artery disease): Qualifiers: Coronary Disease-Associated Artery/Lesion type: cheesh-na artery Habematolel vs. transplanted heart: cheesh-na heart Associated angina: without angina Q ualified Code(s): I25.10 - Atherosclerotic heart disease of cheesh-na coronary artery without angina pectoris Status: Acute (3) High cholesterol: Status: Acute (4) Atrial fibrillation with rapid ventricular response: Status: Acute Plan Terrance Law is a 83 years old man admitted with * Dyspnea, concern for underlying CHF + rapid atrial fibrillation. Admit to hospitalist service. Telemetry. Supplemental O2 to keep O2 sats >90%. Check DEREJE. Will avoid diuretic for now as CXR showed no evidence of pulmonary edema. Cardiology consult. * Atrial fibrillation with rapid ventricular response, now NSR after receiving treatment with metoprolol 5 mg IV x1. Telemetry. Start titrate 12.5 mg PO bid. Continue Xarelto. * Hyperlipidemia. Continue statin. * Dementia. Continue memantine. * CAD s/p CABG. Continue aspirin and statin. * GERD. Continue PPI. * Elevated CO2. Likely contraction alkalosis. Check venous blood gas. Patient has not been drinking or eating well lately. Encourage oral hydration. * Generalized weakness. Likely underlying physical deconditioning. * CKD stage 3A. Avoid nephrotoxic agents. Continue to monitor. DVT prophylaxis: Xarelto Code status: Full Patient will need hospitalization for at least 2 midnights for dyspnea management and treatment. Patient will need vital sign monitoring, evaluation by subspecialty physiotherapy evaluation. Quality Stroke Does the patient have a stroke diagnosis?: No VTE Prior VTE?: No VTE Risk Level:: Medical - moderate - high VTE Device Contraindication: Treatment Not Indicated VTE Drug Contraindication: N/A - Med Ordered
[2023-07-18] VITALS (8 sets, daily range): BP systolic 117–171; BP diastolic 61–87; PULSE 70–94; RESP 15–20; TEMP 36.2–36.8; O2SAT 82–99; BMI 21.8
--- NOTE | 2023-07-18 | ECG_ITS ---
Test Reason : Change in rhythm Blood Pressure : / mmHG Vent. Rate : 099 BPM Atrial Rate : 000 BPM P-R Int : 000 ms QRS Dur : 078 ms QT Int : 394 ms P-R-T Axes : 000 -04 003 degrees QTc Int : 505 ms Normal sinus rhythm with frequent Premature atrial complexes and pvc Inferior infarct (cited on or before 25-JUL-2004) Prolonged QT Abnormal ECG When compared with ECG of 17-JUL-2023 18:07, No significant change was found Referred By: Sonu Coto Electronically Signed By:SONU COTO MD
[2023-07-18] MEDS: bisacodyL 5 MG TABLET.DR 10 MG PO (00:34)
[2023-07-18] MEDS: 0.9 % Sodium Chloride Flush 3 ML SYRINGE IVFLUSH ×4 (00:35→23:40)
--- NOTE | 2023-07-18 00:35 | MHC.EDTECH ---
THIS PCT ASSUMED CARE OF PATIENT AT 2300 ,VITALS TAKEN ,PATIENT WAS INCONTINENT OF URINE ,DUE TO [place] CATH WAS LEAKING ,CARE GIVEN ,AND NEW [place] CATH IN PLACE ,WARM BLANKET GIVEN ,PATIENT CALL MACK WITHIN PATIENT REACH .
[2023-07-18] MEDS: Omeprazole 40 MG CAPSULE.DR PO (06:34)
[2023-07-18 07:04] LABS: MANUAL DIFF FLAG NO
[2023-07-18 07:05] LABS: Venous Blood Gas Refer to POC result
[2023-07-18 07:06] LABS: VBG Base Excess 9.1 mmol/L; VBG HCO3 37 mmol/L (22-26); VBG pCO2 62 mmHg; VBG pH 7.38 (7.32-7.43); VBG pO2 39 mmHg
[2023-07-18 07:10] LABS: Basophils Percent Auto 0.2 % (0-2); Eosinophils Percent Auto 0.1 % (0-4); Hemoglobin 17.1 g/dl (14.0-18.0); Imm Gran Abs Auto 0.03 X10*3/uL (0.00-0.03); Imm Gran Pct Auto 0.3 % (0.0-0.4); Lymphocytes Percent Auto 9.7 % (20-40); Mean Corpuscular HGB Conc 32.9 g/dl (31.0-36.0); Mean Corpuscular Hemoglobin 30.6 pg (27.0-33.0); Mean Platelet Volume 10.6 fL (9.4-12.4); Monocytes Absolute Auto 0.9 X10*3/uL (0.1-1.2); Neutrophils Absolute Auto 8.1 x10*3/uL (2.0-8.3); Neutrophils Percent Auto 80.7 % (45-73); Platelet Count 151 X10*3/uL (160-400); Red Blood Count 5.59 X10*6/uL (4.60-5.80); Red Cell Distribution Width 13.1 % (11.0-16.0)
[2023-07-18 07:29] LABS: Alanine Aminotransferase 22 U/L (0-40); Albumin Level 3.7 g/dL (3.5-5.0); Alkaline Phosphatase 62 U/L (39-117); Anion Gap 18 (12-20); Aspartate Amino Transferase 26 U/L (5-37); Bilirubin Total 0.7 mg/dL (0.0-1.0); Blood Urea Nitrogen 21 mg/dL (9-16); Calcium 10.1 mg/dL (8.4-10.2); Carbon Dioxide 31 mmol/L (22-29); Chloride 94 mmol/L (96-108); Creatinine Clr Calc Pharmacy 38.8; Estimated Glomerular Filt Rate > 60; Glucose Random 164 mg/dL (60-115); Magnesium 2.1 mg/dL (1.6-2.6); Potassium 4.4 mmol/L (3.3-5.1); Sodium 139 mmol/L (135-145); Total Protein 7.3 g/dL (6.5-8.0)
[2023-07-18 07:42] LABS: Vitamin D 25-OH Total 45.1 ng/mL (>30)
[2023-07-18 07:45] LABS: Thyroid Stimulating Hormone 2.42 uIU/mL (0.32-4.0)
[2023-07-18 07:59] LABS: Folate 13.4 ng/mL (> or = 4.0); Vitamin B12 690 pg/mL (200-900)
--- NOTE | 2023-07-18 09:15 | PM.CNCAR ---
History of Present Illness History of Present Illness Date of Service: 07/18/23 Requesting physician: Jackeline Bosch Consult reason: atrial fibrillation Chief complaint: Shortness of breath Narrative: I was consulted to see Terrance in cardiology consultation today. History was obtained from his and his daughter at bedside who limited historian, patient not able to provide any history due to cognitive dysfunction. Patient is 83-year-old male with CAD with remote coronary artery bypass grafting about 30 years ago at [facility] for myocardial infarction subsequently 2 years later had a failed graft and underwent stenting. Unknown vessel at this point time. As per the had about a stress test about 4-5 years ago at [facility] which was reported as normal. Has peripheral vascular disease status post stenting although exact details unknown. Patient also history of paroxysmal atrial fibrillation oral anticoagulation without any rate control or rhythm control medications. Also on low-dose aspirin therapy. Over the last many years he has been having progressive cognitive dysfunction especially after Lyme disease. Patient has pretty advanced cognitive dysfunction at home. However as per the daughter up to March was driving and was functional and active although over the last 2-3 months since his is got injured he has limited functionality and has been mostly home as per the daughter. There been overall rapid decline in his health with reduction in his functional capacity initially walking with a cane subsequently with a walker and having multiple falls over the last few weeks. Came to the hospital with falls. As per the he has been complaining of fluttering in his chest and palpitations. Patient responds yes to everything including saying whether he was lightheaded at present time, having palpitation having chest pain and shortness of breath. However this is unclear at this point time when he came in he was noted to be in AFib with rapid ventricular response, given IV Lopressor and subsequently converted to sinus rhythm. His troponins are minimally elevated. BNP is minimally elevated. There is no significant leg edema noted. Cardiology consult was sought because of atrial fibrillation. Patient was started on metoprolol therapy yesterday. On monitor having frequent PACs and PVCs with sinus rhythm. As mentioned history is unreliable from patient. Review of Systems Review of Systems: Yes Unobtainable due to mental status Neurologic: Reports confusion Psychiatric: Psychiatric: Reports confusion [facility] Past Medical History Medical History COVID-19 vaccine series completed Myocardial infarction HTN (hypertension) ALTAGRACIA (obstructive sleep apnea) On anticoagulant therapy On beta audrey at home Paroxysmal A-fib CAD (coronary artery disease) Stage 3 chronic kidney disease High cholesterol GERD (gastroesophageal reflux disease) Diabetes Lyme disease Cataracts, both eyes Surgical History Surgical History History of cataract extraction History of appendectomy History of esophagogastroduodenoscopy (EGD) Hx of colonoscopy History of left inguinal hernia repair History of right inguinal hernia repair Hx of cholecystectomy S/P triple vessel bypass Social History Social History Household Members: Spouse Housing: House Are you a primary resident care provider to a significant other at home: No Do you presently have visiting nurse or other home services: No Alcohol intake: never Patient Tobacco Use Status: Former Tobacco user Quit Date: 40+ yrs ago Tobacco use type: Cigarette Second Hand Smoke Exposure: No service: Yes Current occupational status: retired Meds Allergies Allergy/AdvReac Type Severity Reaction Status Date / Time adhesive tape [ADHESIVE TAPE] Allergy Intermediate BLISTERS Verified 07/17/23 13:08 doxycycline Allergy Vomiting Verified 07/17/23 13:08 Active Medications: Current Medications Acetaminophen (Acetaminophen 325 Mg Tablet) 650 mg PO Q6H PRN PRN Reason: mild pain, headache or fever Aspirin (Aspirin 81 Mg Tab.Chew) 81 mg PO BEDTIME [facility] Atorvastatin Calcium (Atorvastatin Calcium 80 Mg Tablet) 80 mg PO BEDTIME [facility] Cyanocobalamin (Cyanocobalamin (Vitamin B-12) 500 Mcg Tablet) 500 mcg PO DAILY [facility] Magnesium Hydroxide (Milk Of Magnesia 30 Ml Oral.Susp) 30 ml PO TID PRN PRN Reason: Constipation Memantine (Memantine Hcl 5 Mg Tablet) 5 mg PO DAILY [facility] Metoprolol Tartrate (Metoprolol Tartrate 12.5 Mg Halftab) 12.5 mg PO BID [facility]; Protocol Multivitamins/Vitamin C (Multivitamin Tablet) 1 tab PO DAILY [facility] Nitroglycerin (Nitroglycerin 0.4 Mg Tab.Subl) 0.4 mg SUBLINGUAL Q5M PRN PRN Reason: Chest Pain Omeprazole (Omeprazole 40 Mg Capsule.Dr) 40 mg PO DAILY@0630 [facility] Last Admin: 07/18/23 06:34 Dose: 40 mg Rivaroxaban (Rivaroxaban 15 Mg Tablet) 15 mg PO DAILY@1630 [facility] Senna (Senna Renick Extract Oral Syrup 15 Ml Syrup) 7.5 ml PO BEDTIME [facility] Sodium Chloride (0.9 % Sodium Chloride Flush 3 Ml Syringe) 3 ml IVFLUSH QSHIFT [facility] Last Admin: 07/18/23 00:35 Dose: 3 ml Home Medications ?Medication ?Instructions ?Recorded ?Confirmed ?Last Taken ?Type aspirin 81 mg chewable tablet 81 mg PO BEDTIME 11/07/20 07/17/23 12/09/20 History (Aspirin Childrens) nitroglycerin 0.4 mg sublingual 0.4 mg sublingual Q5M PRN Chest 11/07/20 07/17/23 Unknown History tablet Pain omeprazole 20 mg capsule,delayed 40 mg PO DAILY@0630 11/07/20 07/17/23 12/24/20 History release rivaroxaban 15 mg tablet (Xarelto) 15 mg PO DAILY@1630 11/07/20 07/17/23 12/09/20 History rosuvastatin 40 mg tablet 40 mg PO BEDTIME 11/07/20 07/17/23 Unknown History vit C 250 mg-vit E 90 mg-zinc 40 1 tab PO BID 11/07/20 07/17/23 12/24/20 History mg-copper 1 [id number] capsule (PreserVision AREDS-2) cyanocobalamin (vitamin B-12) 500 500 mcg PO DAILY 07/17/23 07/17/23 Unknown History mcg tablet memantine 5 mg tablet 5 mg PO DAILY 07/17/23 07/17/23 Unknown History Physical Exam Vital Signs: Vital Signs: Last Vital Signs Temp 97.1 F 07/18/23 07:20 Pulse 87 07/18/23 07:20 Resp 17 07/18/23 07:20 BP 136/65 07/18/23 07:20 Pulse Ox 97 07/18/23 07:20 O2 Del Method Nasal Cannula 07/18/23 07:20 O2 Flow Rate 2 07/18/23 07:20 BMI result Body Mass Index 21.8 Const: General: cooperative, comfortable, no acute distress, alert, awake and confusion Nutritional Appearance: thin Orientation/consciousness: confusion HEENT: Head: Yes normocephalic and Yes atraumatic Neck: Neck: Yes trachea midline, Yes supple and Yes no JVD Resp: Effort & Inspection: decreased respiratory effort Auscultation: clear to auscultation bilaterally Cardio: Jugular venous distension: no JVD Rate: regular rate Rhythm: abnormal rhythm with ectopic beats GI: Auscultation: normal bowel sounds Skin: General skin exam: no rashes or lesions noted Neuro: General: no focal motor deficits and confusion Extrem: General: Yes no clubbing, cyanosis or edema Objective Labs and Meds 07/18/23 06:58 07/18/23 06:58 Lab results: Laboratory Results - last 24 hr 07/17/23 07/17/23 07/17/23 13:40 14:52 18:22 WBC 8.9 RBC 5.55 Hgb 17.0 Hct 50.8 MCV 91.5 MCH 30.6 MCHC 33.5 RDW 13.1 Plt Count 150 L MPV 10.9 Immature Gran % (Auto) 0.3 Neut % (Auto) 76.0 H Lymph % (Auto) 13.1 L [place] % (Auto) 10.3 Eos % (Auto) 0.1 Baso % (Auto) 0.2 Lymph # (Auto) 1.2 [place] # (Auto) 0.9 Eos # (Auto) 0.0 Baso # (Auto) 0.0 Abs Immat Gran (auto) 0.03 Absolute Neuts (auto) 6.8 Absolute Nucleated RBC 0.000 Nucleated RBC % (auto) 0.0 PT 12.4 INR 1.0 APTT 32.8 VBG pH VBG pCO2 VBG pO2 VBG HCO3 VBG O2 Saturation VBG Base Excess Sodium 139 Potassium 4.4 Chloride 95 L Carbon Dioxide 36 H Anion Gap 12 BUN 23 H Creatinine 0.97 Estim Creat Clear Calc 47.4 Estimated GFR > 60 Random Glucose 219 H Calcium 10.4 H Magnesium 2.1 Total Bilirubin 0.6 AST 27 ALT 24 Alkaline Phosphatase 63 Troponin I High Sens 42.6 H 41.9 H B-Natriuretic Peptide 120 H Total Protein 7.7 Albumin 3.9 Vitamin B12 25-OH Vitamin D Total Folate TSH Urine Color Dark Yellow Urine Appearance Clear Urine pH 5.5 Ur Specific [place] >= 1.030 H Urine Protein 100 (2+) H Urine Glucose (UA) Negative Urine Ketones Trace Urine Blood Negative Urine Nitrite Negative Ur Leukocyte Esterase Negative Urine RBC 0-2 Urine WBC 0-5 Ur Squamous Epith Cells 0-2 Urine Bacteria None Seen Hyaline Casts 6-10 Influenza Type A (PCR) NEGATIVE Influenza Type B (PCR) NEGATIVE RSV RNA Qual (PCR) NEGATIVE SARS-CoV-2 RNA (RT-PCR) NEGATIVE 07/18/23 06:58 WBC 10.0 RBC 5.59 Hgb 17.1 Hct 52.0 MCV 93.0 MCH 30.6 MCHC 32.9 RDW 13.1 Plt Count 151 L MPV 10.6 Immature Gran % (Auto) 0.3 Neut % (Auto) 80.7 H Lymph % (Auto) 9.7 L [place] % (Auto) 9.0 Eos % (Auto) 0.1 Baso % (Auto) 0.2 Lymph # (Auto) 1.0 L [place] # (Auto) 0.9 Eos # (Auto) 0.0 Baso # (Auto) 0.0 Abs Immat Gran (auto) 0.03 Absolute Neuts (auto) 8.1 Absolute Nucleated RBC 0.000 Nucleated RBC % (auto) 0.0 PT INR APTT VBG pH 7.38 VBG pCO2 62 VBG pO2 39 VBG HCO3 37 H VBG O2 Saturation 69.0 VBG Base Excess 9.1 Sodium 139 Potassium 4.4 Chloride 94 L Carbon Dioxide 31 H Anion Gap 18 BUN 21 H Creatinine 1.15 Estim Creat Clear Calc 38.8 Estimated GFR > 60 Random Glucose 164 H Calcium 10.1 Magnesium 2.1 Total Bilirubin 0.7 AST 26 ALT 22 Alkaline Phosphatase 62 Troponin I High Sens B-Natriuretic Peptide Total Protein 7.3 Albumin 3.7 Vitamin B12 690 25-OH Vitamin D Total 45.1 Folate 13.4 TSH 2.42 Urine Color Urine Appearance Urine pH Ur Specific [place] Urine Protein Urine Glucose (UA) Urine Ketones Urine Blood Urine Nitrite Ur Leukocyte Esterase Urine RBC Urine WBC Ur Squamous Epith Cells Urine Bacteria Hyaline Casts Influenza Type A (PCR) Influenza Type B (PCR) RSV RNA Qual (PCR) SARS-CoV-2 RNA (RT-PCR) Imaging Radiologist's impression: Impressions Chest X-Ray 07/17/23 14:00 IMPRESSION: 1. Unchanged Mild cardiomegaly without radiographic signs of congestive heart failure. 2. Unchanged Markedly hypoinflated lungs. 3. No focal airspace disease could be found. 4. Unchanged coronary artery disease, status post coronary artery bypass graft. Cervical Spine CT 07/17/23 14:32 IMPRESSION: 1. No acute intracranial pathology. 2. No CT evidence of acute cervical spine fracture or traumatic subluxation Head CT 07/17/23 14:32 IMPRESSION: 1. No acute intracranial pathology. 2. No CT evidence of acute cervical spine fracture or traumatic subluxation Abdomen/Pelvis CT 07/17/23 17:31 IMPRESSION: Constipation and diverticulosis. High attenuation in the proximal stomach. It is uncertain whether this represents something the patient has recently ingested. Cannot exclude evidence of GI bleeding. Clinical correlation recommended. Severe atherosclerotic disease. Enlarged prostate gland. Fleischner guidelines were followed. Assessment and Plan (1) Atrial fibrillation with rapid ventricular response: Status: Acute Patient present with fluttering in chest and falls. I do not think his musculoskeletal deconditioning related to cardiovascular issues but there has been rapid decline in his overall ability as per the family. This is concerning. Could be related to deconditioning from being homebound over the last few months. PT consultation should be pursued. He is minimally elevated BNP but clinically has no signs of heart failure could be related to atrial fibrillation as well as minimally elevated troponins given his underlying history of coronary artery disease. I would suggest aggressively manage atrial fibrillation with rhythm control approach and start on amiodarone loading 400 mg b.i.d. for 2 weeks followed by 200 mg daily to avoid recurrent atrial fibrillation hospitalization related to the same. Echocardiogram can be considered. We discussed about management given that he has advanced cognitive dysfunction and there is possibility of progressive coronary disease and/or graft closure although management would be conservative and therefore would avoid pursuing further stress testing as invasive management is not an option. The daughter at bedside agrees. Continue aspirin. Continue Xarelto, renally adjusted does. Continue high-intensity statin therapy. Out of bed to chair. Please evaluate for oxygen requirement although unlikely that requires oxygen therapy. Twelve lead EKG needs to be repeated in sinus rhythm. Order has been placed Will sign of the case at this point time. Thank you for allowing me to partake in his care Procedures Date of Service Date of Service: 07/18/23
--- NOTE | 2023-07-18 09:16 | MHC.CM.PN ---
IMM 07/18/23, Pt lives with his , no home health services at this time, but they had an appt. at the [facility] with Dr. Wolfe to begin the process of getting home health aid assistance at home. pt.'s Bernadette is HCP and this is on file. For medical equipment, they have a stair lift to get into the house, and pt has a walker. DC plan is either STR or home with services. CM will follow and assist with DC plan.
[2023-07-18] MEDS: Cyanocobalamin (Vitamin B-12) 500 MCG TABLET PO (09:21)
[2023-07-18] MEDS: Multivitamin TABLET 1 TAB PO (09:21)
[2023-07-18] MEDS: Memantine HCl 5 MG TABLET PO (09:21)
[2023-07-18] MEDS: Metoprolol Tartrate 12.5 MG HALFTAB PO (09:21)
--- NOTE | 2023-07-18 10:02 | HO.PM.IMPN ---
Subjective Subjective Date of Service: 07/18/23 Review of Systems Follow up afib rvr now in SR Physical Exam Vital Signs: Vital Signs: Last Vital Signs Temp 97.1 F 07/18/23 07:20 Pulse 87 07/18/23 07:20 Resp 17 07/18/23 07:20 BP 136/65 07/18/23 07:20 Pulse Ox 97 07/18/23 07:20 O2 Del Method Nasal Cannula 07/18/23 07:20 O2 Flow Rate 2 07/18/23 07:20 BMI result Body Mass Index 21.8 Appearing in no acute distress lung sounds are clear to auscultation heart regular rate rhythm, clear S1, S2 positive bowel sounds, abdomen is soft, nontender neuro patient is alert x3, no focal deficits Objective Data Active Medications Acetaminophen (Acetaminophen 325 Mg Tablet) 650 mg PO Q6H PRN PRN Reason: mild pain, headache or fever Aspirin (Aspirin 81 Mg Tab.Chew) 81 mg PO BEDTIME [facility] Atorvastatin Calcium (Atorvastatin Calcium 80 Mg Tablet) 80 mg PO BEDTIME [facility] Cyanocobalamin (Cyanocobalamin (Vitamin B-12) 500 Mcg Tablet) 500 mcg PO DAILY [facility] Last Admin: 07/18/23 09:21 Dose: 500 mcg Documented By: CLIVE Magnesium Hydroxide (Milk Of Magnesia 30 Ml Oral.Susp) 30 ml PO TID PRN PRN Reason: Constipation Memantine (Memantine Hcl 5 Mg Tablet) 5 mg PO DAILY [facility] Last Admin: 07/18/23 09:21 Dose: 5 mg Documented By: CLIVE Metoprolol Tartrate (Metoprolol Tartrate 12.5 Mg Halftab) 12.5 mg PO BID [facility]; Protocol Last Admin: 07/18/23 09:21 Dose: 12.5 mg Documented By: CLIVE Multivitamins/Vitamin C (Multivitamin Tablet) 1 tab PO DAILY [facility] Last Admin: 07/18/23 09:21 Dose: 1 tab Documented By: CLIVE Nitroglycerin (Nitroglycerin 0.4 Mg Tab.Subl) 0.4 mg SUBLINGUAL Q5M PRN PRN Reason: Chest Pain Omeprazole (Omeprazole 40 Mg Capsule.Dr) 40 mg PO DAILY@0630 [facility] Last Admin: 07/18/23 06:34 Dose: 40 mg Documented By: RASHID Rivaroxaban (Rivaroxaban 15 Mg Tablet) 15 mg PO DAILY@1630 [facility] Senna (Senna Lupton Extract Oral Syrup 15 Ml Syrup) 7.5 ml PO BEDTIME [facility] Sodium Chloride (0.9 % Sodium Chloride Flush 3 Ml Syringe) 3 ml IVFLUSH QSHIFT [facility] Last Admin: 07/18/23 09:21 Dose: 3 ml Documented By: CLIVE Labs 07/18/23 06:58 07/18/23 06:58 Labs: Laboratory Results - last 24 hr 07/17/23 07/17/23 07/17/23 13:40 14:52 18:22 MCV 91.5 MCH 30.6 MCHC 33.5 RDW 13.1 Plt Count 150 L MPV 10.9 Immature Gran % (Auto) 0.3 Neut % (Auto) 76.0 H Lymph % (Auto) 13.1 L [place] % (Auto) 10.3 Eos % (Auto) 0.1 Baso % (Auto) 0.2 Lymph # (Auto) 1.2 [place] # (Auto) 0.9 Eos # (Auto) 0.0 Baso # (Auto) 0.0 Abs Immat Gran (auto) 0.03 Absolute Neuts (auto) 6.8 Absolute Nucleated RBC 0.000 Nucleated RBC % (auto) 0.0 PT 12.4 INR 1.0 APTT 32.8 VBG pH VBG pCO2 VBG pO2 VBG HCO3 VBG O2 Saturation VBG Base Excess Anion Gap 12 Estim Creat Clear Calc 47.4 Estimated GFR > 60 Random Glucose 219 H Calcium 10.4 H Magnesium 2.1 Total Bilirubin 0.6 AST 27 ALT 24 Alkaline Phosphatase 63 Troponin I High Sens 42.6 H 41.9 H B-Natriuretic Peptide 120 H Total Protein 7.7 Albumin 3.9 Vitamin B12 25-OH Vitamin D Total Folate TSH Urine Color Dark Yellow Urine Appearance Clear Urine pH 5.5 Ur Specific [place] >= 1.030 H Urine Protein 100 (2+) H Urine Glucose (UA) Negative Urine Ketones Trace Urine Blood Negative Urine Nitrite Negative Ur Leukocyte Esterase Negative Urine RBC 0-2 Urine WBC 0-5 Ur Squamous Epith Cells 0-2 Urine Bacteria None Seen Hyaline Casts 6-10 Influenza Type A (PCR) NEGATIVE Influenza Type B (PCR) NEGATIVE RSV RNA Qual (PCR) NEGATIVE SARS-CoV-2 RNA (RT-PCR) NEGATIVE 04/27/24 06:58 MCV 93.0 MCH 30.6 MCHC 32.9 RDW 13.1 Plt Count 151 L MPV 10.6 Immature Gran % (Auto) 0.3 Neut % (Auto) 80.7 H Lymph % (Auto) 9.7 L [place] % (Auto) 9.0 Eos % (Auto) 0.1 Baso % (Auto) 0.2 Lymph # (Auto) 1.0 L [place] # (Auto) 0.9 Eos # (Auto) 0.0 Baso # (Auto) 0.0 Abs Immat Gran (auto) 0.03 Absolute Neuts (auto) 8.1 Absolute Nucleated RBC 0.000 Nucleated RBC % (auto) 0.0 PT INR APTT VBG pH 7.38 VBG pCO2 62 VBG pO2 39 VBG HCO3 37 H VBG O2 Saturation 69.0 VBG Base Excess 9.1 Anion Gap 18 Estim Creat Clear Calc 38.8 Estimated GFR > 60 Random Glucose 164 H Calcium 10.1 Magnesium 2.1 Total Bilirubin 0.7 AST 26 ALT 22 Alkaline Phosphatase 62 Troponin I High Sens B-Natriuretic Peptide Total Protein 7.3 Albumin 3.7 Vitamin B12 690 25-OH Vitamin D Total 45.1 Folate 13.4 TSH 2.42 Urine Color Urine Appearance Urine pH Ur Specific [place] Urine Protein Urine Glucose (UA) Urine Ketones Urine Blood Urine Nitrite Ur Leukocyte Esterase Urine RBC Urine WBC Ur Squamous Epith Cells Urine Bacteria Hyaline Casts Influenza Type A (PCR) Influenza Type B (PCR) RSV RNA Qual (PCR) SARS-CoV-2 RNA (RT-PCR) Assessment and Plan (1) Congestive heart failure: Status: Acute Plan 83-year-old man admitted with dyspnea secondary to congestive heart failure and atrial fibrillation with rapid ventricular response Atrial fibrillation with rapid ventricular response Received metoprolol 5 mg IV x1, converted back to normal sinus rhythm Initially started on metoprolol but Cardiology recommended amiodarone 400 BID x 14 days then 200 mg daily Cardiology following Continue Xarelto Dyspnea Does not appear to be in heart failure Will check echocardiogram Generalized weakness Physical therapy evaluation Failure to thrive with history of dementia Patient's family reports decrease in appetite over the last couple of months Supportive care Add ensure to diet Continue memantine CKD stage 3 Avoid nephrotoxins Follow BMP Hyperlipidemia Continue statin GERD Continue PPI DVT prophylaxis with Xarelto Full code Continue hospitalization for treatment of atrial fibrillation with rapid ventricular response and Failure to thrive necessitating physical therapy evaluation for further planning of discharge Quality Stroke Does the patient have a stroke diagnosis?: No VTE Prior VTE?: No VTE Risk Level:: Medical - moderate - high VTE Device Contraindication: Treatment Not Indicated VTE Drug Contraindication: N/A - Med Ordered
--- NOTE | 2023-07-18 11:00 | CA_ITS ---
Transthoracic Echocardiogram Patient (Last, First, Middle): Terrance Law G Gender: Male Date of : 1940 Age: 83 Procedure Date: 07/18/2023 Procedure Type: Transthoracic Echocardiogram Location: [facility] Height: 162.56 cm Weight: 57.15 kg BSA: 1.61 m2 Heart Rate: bpm BP: 136 / 65 mmHg Install And Repair Technician: SB Referring MD: Mauricio Lubin MD Geothermal Plant Manager: Sonu Coto MD Symptoms: Shortness on breath Study Quality: Fair ECG Rhythm: Sinus Conclusions: - 1. Technically limited study 2. Low normal LV ejection fraction with LVEF of 50-55% with impaired relaxation filling pattern 2. Mild aortic stenosis 4. Severe mitral calcification with mild mitral stenosis Findings Procedure Information Contrast agent, definity, is being given per protocol without apparent complications. The quality of the study was technically difficult. Left Ventricle The left ventricle was not well visualized. Normal left ventricular cavity size. There is normal left ventricular wall thickness. The left ventricular systolic function is low normal. The visually estimated ejection fraction is between 50-55%. Spectral Doppler is indicative of an impaired relaxation filling pattern. Right Ventricle The right ventricle was not well visualized. Normal right ventricular cavity size. There is severely decreased right ventricular systolic function. Atria The left atrium is moderately dilated. Interatrial shunt cannot be excluded. The right atrium is normal in size. Aortic Valve The aortic valve was not well visualized. There is moderate calcification of the aortic valve. There is mild aortic valve stenosis. There is no aortic valve regurgitation. Mitral Valve There is moderate anterior and severe posterior mitral leaflet thickening. There is severe mitral annular calcification. There is no mitral valve regurgitation. There is mild mitral valve stenosis. Ring repair vs MAC? Pt and family unsure of MV hx. Pulmonic Valve The pulmonic valve was not well visualized. Tricuspid Valve The tricuspid valve was not well visualized. Tricuspid regurgitation envelope is inadequate for calculation of right ventricular systolic pressure. Great Vessels The aorta was not well visualized. The pulmonary artery was not well visualized. Moderate plaque is seen in the sino tubular ridge. Venous The inferior vena cava is normal in size and collapses greater than 50% with inspiration. Pericardium/Pleural The pericardium was not well visualized. Prior Study Comparison No prior study available for comparison. Measurements 2D Linear Measurements IVSd: 1.16 0.6-0.9/0.6-1.0 cm LVIDd: 4.21 3.9-5.3/4.2-5.9 cm LVIDd Index: 2.61 2.4-3.2/2.2-3.1 cm/m2 LVIDs: 3.41 2.0-3.6 cm LVPWd: 0.96 0.7-1.1 cm LV Mass: 185.68 67-162/88-224 g LV Mass Index: 115.33 43-95/49-115 g/m2 LVOT Diam: 2.20 3.0+(-)1.3 cm 2D Systolic Function EF 4C: 46.00 >55% EF 2C: 58.80 >55% EF BiP: 52.90 >55% Mitral Valve MV VTI: 0.31 MV Pk Vamsi: 1.67 MV Mn Vamsi: 0.93 MV Pk Grad: 11.00 MV Mn Grad: 5.00 MV Pk E: 0.57 MV PK A: 1.56 MV Decel Time: 166.00 E/A: 0.40 E'Lateral: 6.85 E/E' Lat: 8.30 PHT: 49.00 MVA PHT: 4.49 MVA Continuity: 2.31 Decel Payette: 3.43 Aortic Valve AoV Pk Vamsi: 1.57 AoV Mn Vamsi: 1.30 AoV VTI: 0.35 AoV Pk Grad: 10.00 Aov Mn Grad: 7.00 ELVIRA Cont.VTI: 2.01 LVOT LVOT Pk Vamsi: 0.87 LVOT Mn Vamsi: 0.58 LVOT VTI: 0.19 LVOT Pk Grad: 3.00 LVOT Mn Grad: 2.00 LVOT Diam: 2.20 LVOT Area: 3.80 Diastolic Function MV Pk E: 0.57 MV Pk A: 1.56 E/A: 0.40 E' Laterial: 6.85 E/E' Lat: 8.30 Right Ventricle TAPSE (mm): 7.00 TVS' Vamsi: 4.30 Great Vessels Aorta Sinus of Valsalva: 4.10 2.0-3.5 cm Ao Asc: 3.80 2.1-3.4 cm Ao Arch: 3.20 Pulmonary Veins Pulm Vein S/D 1.80 Pulmonary Valve PV Pk Vamsi: 0.57 Peak PV Grad: 1.00 Updated in Other Vendor System with Status of Final Sonu Coto MD electronically signed on 07/19/2023 10:05:18 AM with status of Final
[2023-07-18] MEDS: Amiodarone HCL 200 MG TABLET 400 MG PO ×2 (11:27→19:52)
[2023-07-18] MEDS: Rivaroxaban 15 MG TABLET PO (16:18)
[2023-07-18] MEDS: Aspirin 81 MG TAB.CHEW PO (19:53)
[2023-07-18] MEDS: Atorvastatin Calcium 80 MG TABLET PO (19:54)
[2023-07-19] VITALS: BP 141/62; PULSE 90; RESP 18; TEMP 36.2; O2SAT 96
[2023-07-19 04:01] VITALS: BP 142/74; PULSE 75; RESP 18; TEMP 36.2; O2SAT 97
[2023-07-19] MEDS: Omeprazole 40 MG CAPSULE.DR PO (06:19)
[2023-07-19] MEDS: Amiodarone HCL 200 MG TABLET 400 MG PO ×2 (07:51→20:05)
[2023-07-19] MEDS: 0.9 % Sodium Chloride Flush 3 ML SYRINGE IVFLUSH ×2 (07:51→15:15)
[2023-07-19] MEDS: Cyanocobalamin (Vitamin B-12) 500 MCG TABLET PO (07:52)
[2023-07-19] MEDS: Memantine HCl 5 MG TABLET PO (07:52)
[2023-07-19] MEDS: Multivitamin TABLET 1 TAB PO (07:52)
[2023-07-19 07:59] VITALS: BP 146/75; PULSE 92; RESP 18; TEMP 36.7; O2SAT 100
--- NOTE | 2023-07-19 09:37 | P.PNIM_ITS ---
Subjective Subjective Date of Service: 07/19/23 Review of Systems Follow up afib rvr now in SR Physical Exam 2 Vital Signs: Vital Signs: Last Vital Signs Temp 98.0 F 07/19/23 07:59 Pulse 92 07/19/23 07:59 Resp 18 07/19/23 07:59 BP 146/75 H 07/19/23 07:59 Pulse Ox 100 07/19/23 07:59 O2 Del Method Nasal Cannula 07/19/23 07:59 O2 Flow Rate 2 07/19/23 07:59 BMI result Body Mass Index 21.8 Appearing in no acute distress lung sounds are clear to auscultation heart regular rate rhythm, clear S1, S2 positive bowel sounds, abdomen is soft, nontender neuro patient is alert to self Objective Data Active Medications Acetaminophen (Acetaminophen 325 Mg Tablet) 650 mg PO Q6H PRN PRN Reason: mild pain, headache or fever Amiodarone HCl (Amiodarone Hcl 200 Mg Tablet) 400 mg PO BID [facility] Stop: 07/31/23 21:01 Last Admin: 07/19/23 07:51 Dose: 400 mg Documented By: CLIVE Aspirin (Aspirin 81 Mg Tab.Chew) 81 mg PO BEDTIME [facility] Last Admin: 07/18/23 19:53 Dose: 81 mg Documented By: MARIO Atorvastatin Calcium (Atorvastatin Calcium 80 Mg Tablet) 80 mg PO BEDTIME [facility] Last Admin: 07/18/23 19:54 Dose: 80 mg Documented By: MARIO Cyanocobalamin (Cyanocobalamin (Vitamin B-12) 500 Mcg Tablet) 500 mcg PO DAILY [facility] Last Admin: 07/19/23 07:52 Dose: 500 mcg Documented By: CLIVE Magnesium Hydroxide (Milk Of Magnesia 30 Ml Oral.Susp) 30 ml PO TID PRN PRN Reason: Constipation Memantine (Memantine Hcl 5 Mg Tablet) 5 mg PO DAILY [facility] Last Admin: 07/19/23 07:52 Dose: 5 mg Documented By: CLIVE Multivitamins/Vitamin C (Multivitamin Tablet) 1 tab PO DAILY [facility] Last Admin: 07/19/23 07:52 Dose: 1 tab Documented By: CLIVE Nitroglycerin (Nitroglycerin 0.4 Mg Tab.Subl) 0.4 mg SUBLINGUAL Q5M PRN PRN Reason: Chest Pain Omeprazole (Omeprazole 40 Mg Capsule.) 40 mg PO DAILY@0630 [facility] Last Admin: 07/19/23 06:19 Dose: 40 mg Documented By: RASHID Rivaroxaban (Rivaroxaban 15 Mg Tablet) 15 mg PO DAILY@1630 [facility] Last Admin: 07/18/23 16:18 Dose: 15 mg Documented By: CLIVE Senna (Senna Minier Extract Oral Syrup 15 Ml Syrup) 7.5 ml PO BEDTIME [facility] Last Admin: 07/18/23 19:54 Dose: 7.5 ml Documented By: MARIO Sodium Chloride (0.9 % Sodium Chloride Flush 3 Ml Syringe) 3 ml IVFLUSH QSHIFT [facility] Last Admin: 07/19/23 07:51 Dose: 3 ml Documented By: CLIVE Labs 07/18/23 06:58 07/18/23 06:58 Assessment and Plan (1) Congestive heart failure: Status: Acute Plan 83-year-old man admitted with dyspnea secondary to congestive heart failure and atrial fibrillation with rapid ventricular response Atrial fibrillation with rapid ventricular response Received metoprolol 5 mg IV x1, converted back to normal sinus rhythm Initially started on metoprolol but Cardiology recommended amiodarone 400 BID x 14 days then 200 mg daily Cardiology following Continue Xarelto Dyspnea Does not appear to be in heart failure reading pending echocardiogram Generalized weakness Physical therapy evaluation Failure to thrive with history of dementia Patient's family reports decrease in appetite over the last couple of months Supportive care ensure with every meal Continue memantine CKD stage 3 Avoid nephrotoxins Follow BMP Hyperlipidemia Continue statin GERD Continue PPI DVT prophylaxis with Xarelto Full code DISPO PT rec STR Continue hospitalization for treatment of atrial fibrillation with rapid ventricular response and Failure to thrive necessitating physical therapy evaluation for further planning of discharge Quality Stroke Does the patient have a stroke diagnosis?: No VTE Prior VTE?: No VTE Risk Level:: Medical - moderate - high VTE Device Contraindication: Treatment Not Indicated VTE Drug Contraindication: N/A - Med Ordered
[2023-07-19 11:44] VITALS: BP 120/63; PULSE 90; RESP 18; TEMP 36.7; O2SAT 100
[2023-07-19] MEDS: Rivaroxaban 15 MG TABLET PO (15:16)
[2023-07-19 16:00] VITALS: BP 101/62; PULSE 86; RESP 18; TEMP 36.3; O2SAT 100
[2023-07-19 20:00] VITALS: BP 140/61; PULSE 84; RESP 20; TEMP 37; O2SAT 99
[2023-07-19] MEDS: Aspirin 81 MG TAB.CHEW PO (20:06)
[2023-07-19] MEDS: Atorvastatin Calcium 40 MG TABLET PO (20:06)
[2023-07-20] VITALS (7 sets, daily range): BP systolic 95–167; BP diastolic 53–81; PULSE 87–103; RESP 18–20; TEMP 36.1–37; O2SAT 93–100
[2023-07-20] MEDS: Omeprazole 40 MG CAPSULE.DR PO (05:35)
[2023-07-20] MEDS: Multivitamin TABLET 1 TAB PO (09:05)
[2023-07-20] MEDS: Memantine HCl 5 MG TABLET PO (09:05)
[2023-07-20] MEDS: Amiodarone HCL 200 MG TABLET 400 MG PO (09:05)
[2023-07-20] MEDS: Cyanocobalamin (Vitamin B-12) 500 MCG TABLET PO (09:05)
[2023-07-20] MEDS: 0.9 % Sodium Chloride Flush 3 ML SYRINGE IVFLUSH ×3 (09:06→20:37)
--- NOTE | 2023-07-20 09:51 | ECG_ITS ---
Test Reason : atrial fib Blood Pressure : / mmHG Vent. 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
--- NOTE | 2023-07-20 10:51 | P.PNIM_ITS ---
Subjective Subjective Date of Service: 07/20/23 Review of Systems Follow up afib rvr now in SR poor appetite no pain Physical Exam 2 Vital Signs: Vital Signs: Last Vital Signs Temp 97.1 F 07/20/23 07:26 Pulse 100 07/20/23 07:26 Resp 20 07/20/23 07:26 BP 128/61 07/20/23 07:26 Pulse Ox 97 07/20/23 07:26 O2 Del Method Nasal Cannula 07/20/23 07:26 O2 Flow Rate 3 07/20/23 07:26 BMI result Body Mass Index 21.8 Appearing in no acute distress lung sounds are clear to auscultation heart regular rate rhythm, clear S1, S2 positive bowel sounds, abdomen is soft, nontender neuro patient is alert to self Objective Data Active Medications Acetaminophen (Acetaminophen 325 Mg Tablet) 650 mg PO Q6H PRN PRN Reason: mild pain, headache or fever Amiodarone HCl (Amiodarone Hcl 200 Mg Tablet) 400 mg PO BID [facility] Stop: 07/31/23 21:01 Last Admin: 07/20/23 09:05 Dose: 400 mg Documented By: BRENDAN Aspirin (Aspirin 81 Mg Tab.Chew) 81 mg PO BEDTIME [facility] Last Admin: 07/19/23 20:06 Dose: 81 mg Documented By: BALDO Atorvastatin Calcium (Atorvastatin Calcium 40 Mg Tablet) 40 mg PO BEDTIME [facility] Last Admin: 07/19/23 20:06 Dose: 40 mg Documented By: BALDO Cyanocobalamin (Cyanocobalamin (Vitamin B-12) 500 Mcg Tablet) 500 mcg PO DAILY [facility] Last Admin: 07/20/23 09:05 Dose: 500 mcg Documented By: BRENDAN Magnesium Hydroxide (Milk Of Magnesia 30 Ml Oral.Susp) 30 ml PO TID PRN PRN Reason: Constipation Memantine (Memantine Hcl 5 Mg Tablet) 5 mg PO DAILY [facility] Last Admin: 07/20/23 09:05 Dose: 5 mg Documented By: BRENDAN Multivitamins/Vitamin C (Multivitamin Tablet) 1 tab PO DAILY [facility] Last Admin: 07/20/23 09:05 Dose: 1 tab Documented By: BRENDAN Nitroglycerin (Nitroglycerin 0.4 Mg Tab.Subl) 0.4 mg SUBLINGUAL Q5M PRN PRN Reason: Chest Pain Omeprazole (Omeprazole 40 Mg Marissa.) 40 mg PO DAILY@0630 [facility] Last Admin: 07/20/23 05:35 Dose: 40 mg Documented By: BALDO Rivaroxaban (Rivaroxaban 15 Mg Tablet) 15 mg PO DAILY@1630 [facility] Last Admin: 07/19/23 15:16 Dose: 15 mg Documented By: CLIVE Senna (Senna Sigurd Extract Oral Syrup 15 Ml Syrup) 7.5 ml PO BEDTIME [facility] Last Admin: 07/19/23 20:06 Dose: 7.5 ml Documented By: BALDO Sodium Chloride (0.9 % Sodium Chloride Flush 3 Ml Syringe) 3 ml IVFLUSH QSHIFT [facility] Last Admin: 07/20/23 09:06 Dose: 3 ml Documented By: KATHERINEMAT Labs 07/18/23 06:58 07/18/23 06:58 Assessment and Plan (1) Congestive heart failure: Status: Acute Plan 83-year-old man admitted with dyspnea secondary to congestive heart failure and atrial fibrillation with rapid ventricular response Failure to thrive with history of dementia Patient's family reports decrease in appetite over the last couple of months Supportive care ensure with every meal Continue memantine plan for hospice, family had hospice eval today Atrial fibrillation with rapid ventricular response Received metoprolol 5 mg IV x1, converted back to normal sinus rhythm Initially started on metoprolol but Cardiology recommended amiodarone 400 BID x 14 days then 200 mg daily Cardiology following Continue Xarelto Dyspnea Does not appear to be in heart failure echocardiogram EF 50-55% Generalized weakness Physical therapy evaluation> Rec STR CKD stage 3 Avoid nephrotoxins Follow BMP Hyperlipidemia Continue statin GERD Continue PPI DVT prophylaxis with Xanoy Attending Dr. Angel Full code DISPO PT rec STR vs home, plan for hospice at home Continue hospitalization for treatment of atrial fibrillation with rapid ventricular response and Failure to thrive necessitating physical therapy evaluation for further planning of discharge Quality Stroke Does the patient have a stroke diagnosis?: No VTE Prior VTE?: No VTE Risk Level:: Medical - moderate - high VTE Device Contraindication: Treatment Not Indicated VTE Drug Contraindication: N/A - Med Ordered
--- NOTE | 2023-07-20 10:56 | MHC.CM.PN ---
CM [facility] @ [phone] and faxed requested information to her at fax- [phone] in order to initiate [employer] services through the [facility]. CM then met with Patient and his Daughter/Padmini at bedside and /Bernadette was facetimed into the conversation. The outcome is a referral was made to [facility] for a Hospice Informational. Home with Hospice is the goal, NOT STR/SNF. CM will follow. PAVING RAMMER is aware.
--- NOTE | 2023-07-20 11:11 | PM.PNCARD ---
Subjective Subjective Date of Service: 07/20/23 Interval history: Seen and examined patient. Discussed with daughter at bedside and with who was on video chat through phone. Essentially, patient keeps repeating the fact that he wants to . Review of Systems Review of Systems Unable to obtain due to dementia. Physical Exam Vital Signs: Last Vital Signs Temp 97.1 F 07/20/23 07:26 Pulse 100 07/20/23 07:26 Resp 20 07/20/23 07:26 BP 128/61 07/20/23 07:26 Pulse Ox 97 07/20/23 07:26 O2 Del Method Nasal Cannula 07/20/23 07:26 O2 Flow Rate 3 07/20/23 07:26 BMI result Body Mass Index 21.8 Const General: comfortable and no acute distress Orientation/consciousness: patient oriented x3 HEENT Other: Unremarkable Head: Yes normal to inspection Neck Neck: Yes normal visual inspection Chest Chest palpation & inspection: normal inspection of the chest Resp Auscultation: clear to auscultation bilaterally Cardio Palpation: normal PMI Heart sounds: S1 normal heart sound present, S2 normal heart sound present, no gallops, no murmurs and no rubs GI Palpation (GI): Soft to palpation Back/Spine/Pelvis Other: unremarkable Skin General skin exam: no rashes or lesions noted Neuro General: patient oriented x3 Extrem General: Yes normal to inspection Psych Mental Status: mental status grossly normal Objective Labs and Meds 07/18/23 06:58 07/18/23 06:58 ECG Interpretation: EKG today shows sinus tachycardia with frequent supraventricular/ventricular ectopy and old inferior infarct. Normal HI and corrected QT. Progress Note: A&P Assessment and plan (1) Atrial fibrillation with rapid ventricular response: Status: Acute (2) Dementia: Status: Acute Plan Pertinent data reviewed. Essentially coronary disease and remote history of CABG; paroxysmal atrial fibrillation; cognitive dysfunction; Lyme disease history. He has been started on amiodarone that seems quite reasonable. Already on anticoagulation. There is a question of ventricular tachycardia on telemetry strip but talking to the family, it seems that he was just shaking quite a bit. Hence could be just artifactual. Any case, it seems that patient is going to be set up for hospice care and they would like him to be also DNR. Hence in this context, do not recommend any further workup. Conservative care only. Discussed with Jackeline Bosch. Total time spent including review of data, counseling, documentation, coordination of care-42 min. Time Spent With Patient Time: Total time managing care of this patient today ____ minutes. Progress Note: Quality Stroke Does the patient have a stroke diagnosis?: No Procedures Date of Service Date of Service: 07/20/23
--- NOTE | 2023-07-20 12:16 | MHC.CM.PN ---
Hospice Informational has been completed. Tentative plan is home tomorrow at 4 PM, via BLS with [facility]. CM will follow.
--- NOTE | 2023-07-20 14:25 | MHC.CM.PN ---
[facility] is now aiming for dc to home tomorrow around 1PM; they will confirm when all equipment has been delivered and CM will then arrange for BLS transport. CM will follow.
[2023-07-20] MEDS: QUEtiapine Fumarate 25 MG TABLET PO (17:21)
[2023-07-20] MEDS: Rivaroxaban 15 MG TABLET PO (17:21)
[2023-07-21 00:31] LABS: VBG Base Excess 9.5 mmol/L; VBG HCO3 41 mmol/L (22-26); VBG pCO2 94 mmHg; VBG pH 7.25 (7.32-7.43); VBG pO2 96 mmHg
[2023-07-21 00:34] LABS: Venous Blood Gas Refer to POC result
--- NOTE | 2023-07-21 01:02 | PM.EVENT ---
Event Note Date of Service: 07/21/23 Event Note: Nurse reported that patient is lethargic. VBG with respiratory acidosis. Spoke to patient's on phone who confirmed that patient will be transitioning to hospice and no aggressive measures to be done at this time including NIV and ICU transfer. The wants the patient to be comfortable. Time Spent With Patient Time: Total time managing care of this patient today ____ minutes.
[2023-07-21 03:58] VITALS: BP 93/54; PULSE 85; RESP 18; TEMP 36.7; O2SAT 92
--- NOTE | 2023-07-21 04:49 | PM.EVENT ---
Event Note Date of Service: 07/21/23 Event Note: Rapid response was called as patient with tachypnea and hypoxemia. Patient with crackles bilaterally and gasping for air, using accessory muscles for breathing. Called the and informed about patient's critical condition. The stated that patient has other daughter will come visit and wants the patient to be comfortable. Will administer morphine Time Spent With Patient Time: Total time managing care of this patient today ____ minutes.
--- NOTE | 2023-07-21 05:12 | PM.EVENT ---
Event Note Date of Service: 07/21/23 Event Note: I was called to patient's bedside to pronounce the patient. No spontaneous movements were present. There was no response to verbal or tactile stimulus. Pupils were mid dilated and fixed. No breath sounds were appreciated over either lung field. No carotid pulses were palpable. No heart sounds were auscultated over entire precordium. Patient was DNR/DNI. Patient pronounced on 07/21/2023 at 05:10. Condolences offered to stepdaughter at bedside. Also called Padmini, patient's daughter and offered condolences. Tried to call Bernadette, patient's but no answer. Time Spent With Patient Time: Total time managing care of this patient today ____ minutes.
--- NOTE | 2023-07-21 06:15 | PC.NURSE ---
Rapid response called on patient approximately at 04:00. Agonal breathing, patient lethargic and unarousable to pain. Patients oxygen increased from 2L NC to 15L non rebreather. MD at bedside no new orders placed. Family at bedside with healthcare proxy notified via phone call. Patient at 05:10. Organ donors called. certificate completed
--- NOTE | 2023-07-21 07:08 | P.DN_ITS ---
Discharge Sum: Prov Provider Primary care physician: Marin Nova MD Consults: 07/18/23 00:27 Consult to Cardiology Routine Consulting Provider: [facility] Reason for consultation: Rapid A-fib Has provider been notified: Yes Discharge Sum: Diag Contributing Factors (1) Congestive heart failure: Discharge Sum: Summary Date and Time Date of admission: 07/17/23 22:09 Date of : 07/21/23 Time of : 05:10 Summary Details: Physical as per admitting provider. Terrance Law is a very pleasant 83 years old man with past medical history significant for paroxysmal AFib warfarin (no known rate control agents), CAD s/p CABG and hyperlipidemia presents to the emergency department due to generalized weakness, multiple falls for the last 2 months, palpitations and shortness on breath at rest and also on exertion. He also reports chest tightness. These symptoms had been getting worse over the last several days. He has been using a walker for ambulation. HPI was mostly provided by patient's daughter who was at bedside. He sustained a fall on Thursday. He has no appetite and has not been eating well lately. In the ED, he was found to have significant tachycardia as consistent with rapid AFib. There is no fever or hypotension. His oxygen saturation is normal on room air. He was started on supplemental oxygen via nasal cannula. Blood workup showed no leukocytosis. Hemoglobin is normal platelet. Platelets level is 150. Troponin is 42.6 --> 41.9. BNP is slightly elevated. LFTs are normal, CO2 is elevated and chloride is low. Creatinine 0.97 (it was 1.29 on December 2022). CXR showed mild cardiomegaly without radiographic signs of CHF. Head and C-spine scans showed no acute pathology. Abdomen and pelvis CT scan showed finding consistent with constipation and diverticulosis. It showed high attenuation in the proximal stoma which is uncertain whether this represents something the patient has recently ingested. Cannot exclude evidence of GI bleeding. It also showed reticular markings at the lower bases. ECG is consistent with rapid atrial fibrillation. ED tx: NS 500 mL bolus, IV contrast, metoprolol 5 mg IV. Patient is now normal sinus rhythm. Patient admitted and treated for failure to thrive and atrial fibrillation with rapid ventricular response. Treated with IV metoprolol initially converted back to sinus rhythm. He was initially on metoprolol but Cardiology recommended switching to amiodarone 400 mg b.i.d., he was also continued on Xarelto. In terms of failure to thrive patient has a history of dementia and family did report a decrease in appetite over the last few months, he refused to eat most meals and just took bites and some sips ensure. Patient had discussed the option of hospice and the plan was to discharge him on hospice. Overnight patient had developed lethargy. V ABGs obtained which showed respiratory acidosis. [employer] discussed this with patient's family. Patient's family did not want any aggressive measures or ICU transfers asthma plan was to transition patient to hospice. The decision was made not to escalate care. Rapid response was called at 0452 for tachypnea and hypoxemia, patient was noted to have crackles and gasping for air, using accessory muscles. Patient's was called and told patient was in critical condition. Family wanted the patient to be comfortable and he was administered morphine. Patient was pronounced at 05:10 this morning. Family was at the bedside. Additional Data Attending physician: Jackeline Bosch NP
--- NOTE | 2023-07-21 08:31 | MHC.CM.PN ---
Patient this morning; [facility] has been notified.
--- NOTE | 2023-08-03 14:55 | P.CDIM_ITS ---
PROVIDER RESPONSE TEXT: To clarify, the appropriate diagnosis supported by the clinical indicators: Clinically unable to determine (explain): not available during RR overnight QUERY TEXT: PHYSICIAN'S DOCUMENTATION REQUEST Date of Query: 07/31/2023 06:07 AM EDT Patient Name: Terrance Law Admit Date: 07/18/2023 Dear Jackeline Bosch, RETROSPECTIVE QUERY A review of the medical record indicates additional documentation may be needed. Please review below and update the documentation accordingly. Clinical Indicators: Event note dated 07/21/23 - Nurse reported that patient is lethargic, VBG with respiratory acidosis. I CU transfer. Nurses note dated 07/21/23 - Rapid response called on patient approximately at 04:00. Agonal breathing , patient lethargic and unarousable to pain. 04:52, Tachypnea and hypoxemia, crackles and gasping for air, using accessory muscles. Patients oxygen increased from 2L NC to 15L non breather. Patient 05:10. Please clarify which of the following accurately represents the patient's respiratory status: Acute respiratory failure Please specify if Hypoxic, Hypercapnic, or Hypoxic and hypercapnic Acute respiratory distress Other (explain) Clinically unable to determine (explain) Thank you, Genie Bhatti, CCS, CDIS Use of terms such as suspected, likely, concern for, or probable (associated with a specific diagnosi s that is being evaluated, monitored, or treated as if it exists) are acceptable and can be coded in the inpatient se tting, when documented at the time of discharge. Please use your independent medical judgment in providing your response. THIS QUERY IS PART OF THE PERMANENT MEDICAL RECORD
--- NOTE | 2023-08-03 14:58 | P.CDIM_ITS ---
PROVIDER RESPONSE TEXT: To clarify, the appropriate diagnosis supported by the clinical indicators: Clinically unable to determine (explain): Not present during RR or code QUERY TEXT: PHYSICIAN'S DOCUMENTATION REQUEST Date of Query: 07/31/2023 06:34 AM EDT Patient Name: Terrance Law Admit Date: 07/18/2023 Dear Jackeline Bosch, RETROSPECTIVE QUERY A review of the medical record indicates additional documentation may be needed. Please review below and update the documentation accordingly. Clinical Indicators: Event note 07/20 - Nurse reported that patient is lethargic, VBG with respiratory acidosis. ICU transfer, critical condition. Patient is unarousable to pain, lethargic, gasping for air, using accessory muscles, tachypnea, hypox emia, agonal breathing, 2LNC increased 15L non-breather. Family wanted patient to be comfortable, no aggressive measures. BP 93/54L Patient 05;10 Based on the above, could you clarify if any of the following, best reflects the patient's level of c onsciousness? Anoxic encephalopathy Comatose Other (explain) Clinically unable to determine (explain) Thank you, Genie Bhatti, CCS, CDIS Use of terms such as suspected, likely, concern for, or probable (associated with a specific diagnosi s that is being evaluated, monitored, or treated as if it exists) are acceptable and can be coded in the inpatient se tting, when documented at the time of discharge. Please use your independent medical judgment in providing your response. THIS QUERY IS PART OF THE PERMANENT MEDICAL RECORD
== END 2023-07-21 05:19 | disposition expired | DRG 309 ==
LOC: HO.ED 16:17 → HO.EDOVER 22:41 → HO.IMC 07-18 01:16
PROVIDERS: Physician Assistant Medical; Student in an Organized Health Care Education/Training Program; Admitting Provider Internal Medicine; Emergency Provider Internal Medicine; PCP Internal Medicine; Visit Provider Nurse Practitioner Acute Care
DX: I48.0 Paroxysmal atrial fibrillation (principal); E87.29 Other acidosis; I25.10 Atherosclerotic heart disease of native coronary artery without angina pectoris; G47.33 Obstructive sleep apnea (adult) (pediatric); N18.30 Chronic kidney disease, stage 3 unspecified; F03.90 Unspecified dementia, unspecified severity, without behavioral disturbance, psychotic disturbance, mood disturbance, and anxiety; R62.7 Adult failure to thrive; Z66 Do not resuscitate; K59.00 Constipation, unspecified; K57.30 Diverticulosis of large intestine without perforation or abscess without bleeding; I50.9 Heart failure, unspecified; Z68.21 Body mass index [BMI] 21.0-21.9, adult; E78.5 Hyperlipidemia, unspecified; K21.9 Gastro-esophageal reflux disease without esophagitis; Z95.1 Presence of aortocoronary bypass graft; Z87.891 Personal history of nicotine dependence; Z79.01 Long term (current) use of anticoagulants; Z79.82 Long term (current) use of aspirin; Z79.899 Other long term (current) drug therapy
CPT/HCPCS: 0241U; 36415; 70450; 71046; 72125; 74177; 80053; 81001; 82306; 82607; 82746; 82803; 83735; 83880; 84443; 84484; 85025; 85610; 85730; 92950; 93005; 93306; 97163; 99285; Q9957; Q9967

== ENCOUNTER → 2023-07-17 13:08 | Outpatient (BNV) | payer MEDICARE, SELFPAY | PROVIDERS: Emergency Provider Internal Medicine; PCP Internal Medicine; Visit Provider Internal Medicine Cardiovascular Disease | DX: I48.91 Unspecified atrial fibrillation (principal) | CPT/HCPCS: 93010 ==

== ENCOUNTER 2023-07-17 22:09 | Outpatient (BNV) | payer OTHER, MEDICARE, SELFPAY | END 2023-07-20 09:51 | PROVIDERS: Admitting Provider Internal Medicine; Emergency Provider Internal Medicine; PCP Internal Medicine; Visit Provider Internal Medicine | DX: I49.1 Atrial premature depolarization (principal); I49.3 Ventricular premature depolarization | CPT/HCPCS: 93010 ==

== ENCOUNTER 2023-07-17 22:09 | Outpatient (BNV) | payer MEDICARE, SELFPAY | END 2023-07-18 11:00 | PROVIDERS: Admitting Provider Internal Medicine; Emergency Provider Internal Medicine; PCP Internal Medicine; Visit Provider Internal Medicine Cardiovascular Disease | DX: I35.0 Nonrheumatic aortic (valve) stenosis (principal) | CPT/HCPCS: 93010; 93306 ==

== ENCOUNTER → 2023-07-17 22:09 | Outpatient (BNV) | payer MEDICARE, SELFPAY | PROVIDERS: Admitting Provider Internal Medicine; Emergency Provider Internal Medicine; PCP Internal Medicine; Visit Provider Internal Medicine Cardiovascular Disease | DX: I48.91 Unspecified atrial fibrillation (principal); F03.90 Unspecified dementia, unspecified severity, without behavioral disturbance, psychotic disturbance, mood disturbance, and anxiety | CPT/HCPCS: 99222; 99233 ==

== ENCOUNTER → 2023-07-17 22:09 | Outpatient (BNV) | payer MEDICARE, SELFPAY | PROVIDERS: Admitting Provider Internal Medicine; Emergency Provider Internal Medicine; PCP Internal Medicine; Visit Provider Internal Medicine | DX: I50.9 Heart failure, unspecified (principal) | CPT/HCPCS: 99223; 99232; 99239 ==